=== PATIENT | female | born 1970 | race Caucasian/White ===

== ENCOUNTER → 2016-05-16 | Outpatient (CLI) | payer OTHER ==
[~2016-05-16] MED LIST: ALBU0.08 INH; ALBUAER19 INH; CALC-20 PO; FLUO20CA35 PO; FLUT50SP14 NAE; IBUP-1050 PO; MOME100A INH; MULT-506 PO; SNG10 PO
== END | disposition home or self-care (01) ==
LOC: C.PAPS 10:28
PROVIDERS: ATTEND Obstetrics & Gynecology
DX: Z12.4 Encounter for screening for malignant neoplasm of cervix (principal)

== ENCOUNTER → 2017-01-29 | Outpatient (CLI) | payer OTHER ==
--- NOTE | 2017-01-30 08:29 | MAMMOGRAPHY REPORT ---
BILATERAL DIGITAL SCREENING MAMMOGRAM TOMOSYNTHESIS WITH CAD: 01/29/2017 CLINICAL HISTORY: Routine screening. Patient has no complaints. TECHNIQUE: Breast tomosynthesis in addition to standard 2D mammography was performed. Current study was also evaluated with a Computer Aided Detection (CAD) system. COMPARISON: Comparison is made to exams dated: 12/26/2015 mammogram, 12/20/2015 mammogram, 12/05/2014 m ammogram, 10/04/2013 mammogram, 09/17/2012 mammogram, and 09/30/2012 mammogram - [facility]ter. BREAST COMPOSITION: The tissue of both breasts is heterogeneously dense, which may obscure small mas ses. FINDINGS: No suspicious masses, calcifications, or areas of architectural distortion are noted in ei ther breast. There has been no significant interval change compared to prior exams. IMPRESSION: ACR BI-RADS CATEGORY 1: NEGATIVE There is no mammographic evidence of malignancy. A 1 year screening mammogram is recommended. The pa tient will receive written notification of the results. Approximately 10% of breast cancers are not detected with mammography. A negative mammographic report should not delay biopsy if a clinically suggestive mass is present. Xiao Starr M.D. ah/:01/29/2017 14:59:47 Client Service Representative: Celia MCBRIDE(R)(M), [facility] letter sent: Normal 1/2 BI-RADS Code: ACR BI-RADS Category 1: Negative
== END | disposition home or self-care (01) ==
LOC: C.MAMM 11:18
PROVIDERS: ATTEND Obstetrics & Gynecology
DX: Z12.31 Encounter for screening mammogram for malignant neoplasm of breast (principal)

== ENCOUNTER → 2017-08-03 | Outpatient (CLI) | payer OTHER ==
[2017-08-03 14:45] LABS: HEMOGLOBIN 14.2 g/dL (12.0-16.0); MEAN CELL VOLUME 86.6 fL (80-100); MEAN CORPUSCULAR HEMOGLOBIN 29.3 pg (25-34); MEAN CORPUSCULAR HGB CONC 33.8 g/dl (32-36); MEAN PLATELET VOLUME 8.6 fL (7.4-10.4); PLATELET COUNT 322 K/uL (130-400); RED CELL DISTRIBUTION WIDTH CV 13.1 % (11.5-14.5); RED CELL DISTRIBUTION WIDTH SD 41.6 fL (36.4-46.3); WHITE BLOOD COUNT 7.51 K/uL (4.8-10.8)
== END | disposition home or self-care (01) ==
LOC: C.LAB 13:26
PROVIDERS: ATTEND Obstetrics & Gynecology
DX: N93.9 Abnormal uterine and vaginal bleeding, unspecified (principal)

== ENCOUNTER → 2017-12-21 | Outpatient (CLI) | payer OTHER ==
[2017-12-21 09:55] LABS: ALBUMIN 3.5 gm/dl (3.4-5.0); ALKALINE PHOSPHATASE 114 U/L (45-117); ALT/SGPT 37 U/L (12-78); AST/SGOT 23 U/L (15-37); BLOOD UREA NITROGEN 12 mg/dl (7-18); CALCIUM 8.8 mg/dl (8.5-10.1); CARBON DIOXIDE 30 mmol/L (21-32); CHOLESTEROL 223 mg/dl (0-200); CREATININE 0.95 mg/dl (0.60-1.20); GLUCOSE 100 mg/dl (70-99); LDL CHOLESTEROL CALCULATED 152 mg/dl; POTASSIUM 3.5 mmol/L (3.5-5.1); SODIUM 139 mmol/L (136-145); TOTAL PROTEIN 6.8 gm/dl (6.4-8.2)
== END | disposition home or self-care (01) ==
LOC: C.LAB 07:54
PROVIDERS: ATTEND Internal Medicine
DX: E78.5 Hyperlipidemia, unspecified (principal)

== ENCOUNTER 2019-04-04 06:01 | Observation (INO) ==
--- NOTE | 2019-03-09 15:53 | PAT Medication Instructions ---
Medication Instructions Date of Service March 09, 2019 Home Medications albuterol sulfate 2.5 mg/3 mL (0.083 %) solution for nebulization 2.5 mg INHALATION Q4H PRN albuterol sulfate 90 mcg/actuation aerosol inhaler 2 puffs INHALATION Q4H PRN calcium carbonate 600 mg (1,500 mg)-vitamin D3 200 unit tablet 1 tab PO QAM cholecalciferol (vitamin D3) 5,000 unit capsule 5,000 units PO QAM escitalopram oxalate 20 mg tablet 20 mg PO QPM #30 tab 12/11/18 [History Confirmed 03/04/19] fluticasone 250 mcg-salmeterol 50 mcg/dose blistr powdr for inhalation 1 puffs INHALATION BID hydrochlorothiazide 25 mg tablet 25 mg PO QAM #90 tab 12/11/18 [History Confirmed 03/04/19] montelukast 10 mg tablet 10 mg PO HS #90 tab 12/11/18 [History Confirmed 03/04/19] multivitamin 1 tab PO QAM 12/11/18 [History Confirmed 03/04/19] omeprazole 20 mg capsule,delayed release 20 mg PO QAM fluticasone propionate 50 mcg/actuation nasal spray,suspension 2 sprays INTRANASAL QAM PRN fexofenadine [Paz Allergy] 180 mg PO QAM 03/04/19 [History Confirmed 03/04/19] ibuprofen [Advil] 200 - 400 mg PO Q6H PRN 03/04/19 [History Confirmed 03/04/19] ASK your surgeon for instructions ibuprofen [Advil] 200 - 400 mg PO Q6H PRN 03/04/19 [History Confirmed 03/04/19] DO NOT take the morning of surgery calcium carbonate 600 mg (1,500 mg)-vitamin D3 200 unit tablet 1 tab PO QAM cholecalciferol (vitamin D3) 5,000 unit capsule 5,000 units PO QAM hydrochlorothiazide 25 mg tablet 25 mg PO QAM #90 tab 12/11/18 [History Confirmed 03/04/19] multivitamin 1 tab PO QAM 12/11/18 [History Confirmed 03/04/19] fexofenadine [Paz Allergy] 180 mg PO QAM 03/04/19 [History Confirmed 03/04/19] Take morning of surgery With a small sip of water, OTHERWISE NOTHING TO EAT OR DRINK AFTER MIDNIGHT: albuterol sulfate 2.5 mg/3 mL (0.083 %) solution for nebulization 2.5 mg INHALATION Q4H PRN (if needed) albuterol sulfate 90 mcg/actuation aerosol inhaler 2 puffs INHALATION Q4H PRN (use if needed; please bring with you to hospital day of surgery if possible) fluticasone 250 mcg-salmeterol 50 mcg/dose blistr powdr for inhalation 1 puffs INHALATION BID omeprazole 20 mg capsule,delayed release 20 mg PO QAM fluticasone propionate 50 mcg/actuation nasal spray,suspension 2 sprays INTRANASAL QAM PRN (if needed) Take evening before surgery albuterol sulfate 2.5 mg/3 mL (0.083 %) solution for nebulization 2.5 mg INHALATION Q4H PRN (if needed) albuterol sulfate 90 mcg/actuation aerosol inhaler 2 puffs INHALATION Q4H PRN (if needed) escitalopram oxalate 20 mg tablet 20 mg PO QPM #30 tab 12/11/18 [History Confirmed 03/04/19] fluticasone 250 mcg-salmeterol 50 mcg/dose blistr powdr for inhalation 1 puffs INHALATION BID montelukast 10 mg tablet 10 mg PO HS #90 tab 12/11/18 [History Confirmed 03/04/19] Other Notes If you have any questions please call us at [phone] or [phone] or [phone] or [phone]
--- NOTE | 2019-03-10 11:47 | Anesthesiology Consultation ---
Date of Service March 10, 2019 Assessment & Plan Chart Review Chart Review: Pending: Refer to Additional Notes / Consult section (pending preop testing (labs)) and Patient seen in Pre Admission Testing Teaching & Discussion Pre-Anesthesia Teaching/Discussion Notes: Instructed NPO after midnight before surgery,except medications with 15 cc of water. Medication instructions provided according to the PAT guidelines. History Surgery Operation Date: 04/04/19 09:20 Proposed Procedures p Robotic Total Laparoscopic Hysterectomy - Brooke Gudino MD Height/Weight Height: 5 ft 7 in Weight: 90.4 kg Allergies Allergy/AdvReac Type Severity Reaction Status Date / Time No Known Allergies Allergy Unknown Verified 03/04/19 13:45 Medications Home Medications Medication Instructions Recorded Confirmed Last Taken albuterol sulfate 2.5 mg/3 mL 2.5 mg INHALATION Q4H PRN #1 ml 12/11/18 03/10/19 Unknown (0.083 %) solution for nebulization albuterol sulfate 90 mcg/actuation 2 puffs INHALATION Q4H PRN #1 gm 12/11/18 03/10/19 Unknown aerosol inhaler calcium carbonate 600 mg (1,500 1 tab PO QAM tab 12/11/18 03/10/19 Unknown mg)-vitamin D3 200 unit tablet cholecalciferol (vitamin D3) 5,000 5,000 units PO QAM cap 12/11/18 03/10/19 Unknown unit capsule escitalopram oxalate 20 mg tablet 20 mg PO QPM #30 tab 12/11/18 03/10/19 Unknown fluticasone 250 mcg-salmeterol 50 1 puffs INHALATION BID #3 ea 12/11/18 03/10/19 Unknown mcg/dose blistr powdr for inhalation hydrochlorothiazide 25 mg tablet 25 mg PO QAM #90 tab 12/11/18 03/10/19 Unknown montelukast 10 mg tablet 10 mg PO HS #90 tab 12/11/18 03/10/19 Unknown multivitamin 1 tab PO QAM 12/11/18 03/10/19 Unknown omeprazole 20 mg capsule,delayed 20 mg PO QAM cap 12/11/18 03/10/19 Unknown release fluticasone propionate 50 2 sprays INTRANASAL QAM PRN gm 12/20/18 03/10/19 Unknown mcg/actuation nasal spray,suspension fexofenadine [Paz Allergy] 180 mg PO QAM 03/04/19 03/10/19 Unknown ibuprofen [Advil] 200 - 400 mg PO Q6H PRN 03/04/19 03/10/19 Unknown Past Medical History Medical History (Updated 03/10/19 @ 11:44 by Malka Mixon) Anxiety Asthma stable Depression Gastritis stable on PPI High cholesterol Hypertension Menorrhagia Exercise / Class Metabolic Activity II 4-5 Yardwork/Stairs/Walk up hill Past Family History Family History Father Stroke syndrome Hypertension Sleep apnea Myocardial infarction Coronary heart disease Hx of CABG, Onset Age: 65 Mother Hypothyroidism Aunt Coronary heart disease paternal Uncle Coronary heart disease paternal Past Surgical History Surgical History History of esophagogastroduodenoscopy (EGD) History of open reduction and internal fixation (ORIF) procedure NASAL Hx of colonoscopy Hx of hernia repair X2 Hx of wisdom tooth extraction Past Anesthesia History No Hx of Anesthesia Complications and No Family Hx of Anesthesia Complications History of PONV No Hx of PONV and No Hx of Motion Sickness Social History Smoking Status: Never smoker Do You Dip or Chew Tobacco: No Hx Alcohol Use: Yes alcohol intake frequency: holidays/special occasions only Hx Substance Use: No Review of Systems Patient denies chest pain, shortness of breath, dyspnea on exertion, cough, wheezing, palpitations. Physical Exam Vital Signs VITALS BP 128/81 P 94 TEMP 98.7 SP02 94%RA RESP 16 PHYSICAL Full neck and c-spine range of motion. Full TMJ range of motion. TMD 4 finger breaths Mallampati Score 2 Dentition: intact, upper front bonding Lungs: clear throughout to auscultation Cardiac: regular rate and rhythm, no murmurs noted Spine: normal Extremities: no edema
[2019-03-10 12:42] LABS: Basophils # (auto) 0.03 K/uL (0-0.2); Basophils % (auto) 0.4 %; Eosinophils % (auto) 2.9 %; Hematocrit (blood only) 41.8 % (37-47); Hemoglobin 13.8 g/dL (12.0-16.0); Immature Granulocytes # (auto) 0.02 K/uL (0.00-0.02); Immature Granulocytes % (auto) 0.3 %; Lymphocytes # (auto) 2.47 K/uL (1.2-3.4); Lymphocytes % (auto) 35.5 %; Mean Corpuscular Hemoglobin 29.9 pg (25-34); Mean Corpuscular Volume 90.5 fL (80-100); Mean Platelet Volume 8.7 fL (7.4-10.4); Monocytes # (auto) 0.71 K/uL (0.11-0.59); Monocytes % (auto) 10.2 %; Neutrophils # (auto) 3.52 K/uL (1.4-6.5); Neutrophils % (auto) 50.7 %; Platelet Count 302 K/uL (130-400); RDW Coefficient of Variation 13.4 % (11.5-14.5); RDW Standard Deviation 44.5 fL (36.4-46.3); Red Blood Count 4.62 M/uL (4.2-5.4); White Blood Count 6.95 K/uL (4.8-10.8)
[2019-03-10 13:05] LABS: BUN Creatinine Ratio 12.4 (10-20); Calcium 9.5 mg/dl (8.5-10.1); Creatinine Clr Calc Pharmacy 78.8 ml/min; Est GFR (African American) 75.5; Est GFR (Non-African American) 65.1; Potassium 3.9 mmol/L (3.5-5.1)
[~2019-04-04 06:01] MED LIST changes: -ALBU0.08 INH; -ALBUAER19 INH; -CALC-20 PO; +CEFAZOLIN 2000MG 2,000 MG/15 ML SYR IV SCH; -FLUO20CA35 PO; -FLUT50SP14 NAE; -IBUP-1050 PO; +LACTATED RINGER'S 1,000 ML IV SCH; +LR 15ML/HR IV SCH; -MOME100A INH; -MULT-506 PO; -SNG10 PO
[2019-04-04] MEDS ORDERED: ONDANSETRON INJ 2 MG/ML 2 ML VIAL ONE ×2 (06:56→09:00)
[2019-04-04] MEDS ORDERED: GLYCOPYRROLATE 0.2 MG/ML VIAL ONE (06:56)
[2019-04-04] MEDS ORDERED: fentaNYL citrate 100 MCG/2 ML VIAL ONE ×3 (06:56→09:19)
[2019-04-04] MEDS ORDERED: PROPOFOL IV EMULSION 10 MG/ML 20 ML VIAL IV ONE (06:56)
[2019-04-04] MEDS ORDERED: LIDOCAINE HCL 2% 2 ML VIAL/AMP(20MG/ML) INFIL ONE (06:56)
[2019-04-04] MEDS ORDERED: DEXAMETHASONE SOD INJ 4 MG/ML VIAL ONE (06:56)
[2019-04-04] MEDS ORDERED: MIDAZOLAM HCL 1 MG/ML 2ML VIAL ONE (06:56)
[2019-04-04] MEDS ORDERED: NEOSTIGMINE METHYLSULFATE 5 MG/5 ML SYR ONE (06:56)
[2019-04-04] MEDS ORDERED: ONDANSETRON INJ 2 MG/ML 2 ML VIAL IV PRN ×2 (06:57→07:05)
[2019-04-04] MEDS ORDERED: LABETALOL HCL IV 5 MG/ML 20ML IV PRN (06:57)
[2019-04-04] MEDS ORDERED: ATROPINE SULFATE 0.1 MG/ML 10ML SYR IV PRN (06:57)
[2019-04-04] MEDS ORDERED: KETOROLAC 30 MG/ML VIAL IV PRN ×2 (06:57→07:05)
[2019-04-04] MEDS ORDERED: HYDROmorphone INJ 1 MG/ML SYRINGE IV PRN (06:57)
[2019-04-04] MEDS ORDERED: METHYLENE BLUE 0.5% 10 ML VIAL ONE (06:58)
--- NOTE | 2019-04-04 07:03 | History & Physical Bridge Note ---
Date of Service April 04, 2019 History & Physical Bridge Note I have examined the patient, reviewed the History & Physical and in the interval since the performance of the History & Physical I have noted the following changes of clinical significance: no changes noted
[2019-04-04] MEDS ORDERED: ACETAMINOPHEN 325 MG TAB PO PRN (07:05)
[2019-04-04] MEDS ORDERED: IBUPROFEN 600 MG TAB PO PRN (07:05)
[2019-04-04] MEDS ORDERED: PROMETHAZINE HCL 12.5 MG in SODIUM CHLORIDE 0.9% 50 ML IV PRN (07:05)
[2019-04-04] MEDS ORDERED: PROMETHAZINE HCL 25 MG in SODIUM CHLORIDE 0.9% 50 ML IV PRN (07:05)
[2019-04-04] MEDS ORDERED: MEPERIDINE HCL 25 MG/ML CARP IV PRN (07:05)
[2019-04-04] MEDS ORDERED: OXYCODONE/ACETAMINOPHEN 5mg/325mg TAB PO PRN ×2 (07:05)
[2019-04-04] MEDS ORDERED: bisacodyL 10 MG SUPP PR PRN (07:05)
[2019-04-04] MEDS ORDERED: MEPERIDINE HCL 50 MG/ML CARP IV PRN (07:05)
[2019-04-04] MEDS ORDERED: LACTATED RINGER'S 1,000 ML IV SCH (07:15)
--- NOTE | 2019-04-04 09:20 | Operative Report ---
PG Post Operative Report Pre & Post Diagnosis Operation Date: 04/04/19 07:30 Pre-Op Diagnosis: Menorrhagia with Irregular Cycle Post-Op Diagnosis: Menorrhagia with Irregular Cycle I identified the patient and participated in the time-out.: Yes Procedure Operation Date: 04/04/19 07:30 Actual Procedures p Robotic Total Laparoscopic Hysterectomy, Bilateral Salpingectomy, Cystoscopy - Brooke Gudino MD Surgeon Brooke Gudino MD Suspect Artist None Estimated Blood Loss 25 Findings Consistent with Post-Op Diagnosis Specimens Uterus, Cervix, bilateral fallopian tubes Anesthesia Type General Complications none Disposition Accompanied Patient To Recovery: Yes Disposition: Recovery Room Description of Procedure The patient was brought to the operating room and placed on the table in dorsal lithotomy position with yellofin stirrups, prepped and draped in standard sterile fashion, and a hard time out was taken prior to proceeding. The bladder was emptied via placement of benitez catheter. A [employer] uterine manipulator was placed in the usual manner. Attention was then turned to the abdomen where optical entry was made at the umbilicus without complication. The abdomen was insufflated and the patient was placed in steep Trendelenburg. Under direct visualization, right and left lower quadrant ports were placed without complication. Survey of the abdomen revealed normal tubes, ovaries and uterus with some adhesive disease in the posterior pelvis. The robot was then docked and surgery proceeded with the surgeon at the console. The ureter was identified on each side and traced along its course into the pelvis. Each fallopian tube in turn was elevated, dissected off the mesosalpinx and left attached to the uterine cornu. Each utero-ovarian ligament was ligated and then divided. Each round ligament was ligated and then divided. The anterior leaflets of the broad ligament were dissected to create a bladder flap which was gently mobilized downward below the colpotomy cup ridge. Each uterine artery was skeletonized, ligated, and then divided. Circumferential colpotomy was then completed following the colpotomy cup guide. The cervix, uterus and bilateral tubes were then retrieved en bloc via the vagina. The vaginal cuff was then closed using V-Mariia suture in the typical running non-locked fashion. The needle was retrieved through a trocar, and suction/irrigation was then used to remove any debris and ensure good hemostasis at all working sites. A small ooze was seen from the R angle, so another V-mariia suture was used to throw a figure of eight over this angle, and tied with an instrument-tie technique to fully secure the area. Repeat suction-irrigation showed complete hemostasis had been achieved, and observation showed no sign of bleeding or filling into the r etroperitoneal space. After administration of IV Methylene Blue dye, cystoscopy was then utilized to examine the bladder dome which was free of suture or injury. The ureteral orifices were observed until a good strong jet of blue stained urine was seen from each. The bladder was then drained. The robot was then undocked, and abdominal trocar sites were closed using a UR6 at the umbilical fascia and 4-0 monocryl at each of the skin incisions. A dermabond dressing was applied to each site. A final vaginal exam ensured no materials were present in the vagina and the cuff was intact. The patient was then transferred in stable condition to the recovery room. I attest to the content of the Intraoperative Record and any orders documented therein. Any exceptions are noted below.
--- NOTE | 2019-04-04 10:10 | Anesthesiology Progress Note ---
Date of Service April 04, 2019 Anesthesia Post Procedure Vital Signs Vital Signs: Temp Pulse Pulse Resp BP Pulse Ox 04/04/19 10:00 103 H 17 121/99 96 04/04/19 09:50 90 15 126/81 98 04/04/19 09:40 90 13 122/81 96 04/04/19 09:34 36.2 C L 93 H 12 123/80 87 L 04/04/19 06:29 37 C 94 H 18 125/87 95 Transfer of Care Handoff Completed per policy Notes Mental Status: alert / awake / arousable Patient Amnestic to Procedure: Yes Nausea / Vomiting: adequately controlled Pain: adequately controlled Airway Patency, RR, SpO2: stable & adequate BP & HR: stable & adequate Hydration State: stable & adequate Anesthetic Complications: no major complications apparent
[2019-04-04] MEDS ORDERED: DOCUSATE SODIUM 100 MG CAP PO SCH (11:00)
[2019-04-04 14:10] LABS: Hemoglobin 13.1 g/dL (12.0-16.0)
--- NOTE | 2019-04-05 11:11 | Discharge Summary ---
Date of Service April 05, 2019 Discharge Data Procedures Performed Operation Date: 04/04/19 07:30 Actual Procedures p Robotic Total Laparoscopic Hysterectomy, Bilateral Salpingectomy, - Brooke Gudino MD s Cystoscopy - Brooke Gudino MD Hospital Course (1) H/O: hysterectomy: Patient underwent planned robotic hysterectomy without complications. She was discharged to home POD#0 after meeting the typical postop milestones, and will have office f/u in 2 and 6 weeks.
== END 2019-04-04 16:20 | disposition home or self-care (01) ==
LOC: ASU 06:01 → 4N 06:01

== ENCOUNTER 2021-12-05 07:20 | Inpatient (IN) ==
[2021-12-05] MEDS ORDERED: ASPIRIN 81 MG CHEW PO STA (07:45)
[2021-12-05] MEDS ORDERED: NITROGLYCERIN SL 0.4 MG/TAB TAB SL STA (07:45)
[2021-12-05 07:53] LABS: Basophils # (auto) 0.05 K/uL (0-0.2); Basophils % (auto) 0.8 %; Eosinophils # (auto) 0.16 K/uL (0-0.50); Eosinophils % (auto) 2.4 %; Hematocrit (blood only) 41.2 % (34.1-44.9); Hemoglobin 13.4 g/dl (12.0-16.0); Immature Granulocytes # (auto) 0.02 K/uL (0.00-0.02); Immature Granulocytes % (auto) 0.3 %; Lymphocytes # (auto) 2.28 K/uL (1.2-3.4); Lymphocytes % (auto) 34.4 %; Mean Corpuscular Hemoglobin 29.5 pg (25.0-34.0); Mean Corpuscular Hgb Conc 32.5 g/dL (32.0-36.0); Mean Corpuscular Volume 90.7 fL (80.0-100.0); Mean Platelet Volume 8.2 fL (9.4-12.3); Monocytes # (auto) 0.72 K/uL (0.24-0.82); Monocytes % (auto) 10.9 %; Neutrophils # (auto) 3.39 K/uL (1.4-6.5); Neutrophils % (auto) 51.2 %; Platelet Count 279 K/uL (130-400); RDW Coefficient of Variation 13.6 % (11.5-14.5); RDW Standard Deviation 45.4 fL (36.4-46.3); Red Blood Count 4.54 M/uL (3.93-5.22); White Blood Count 6.62 K/ul (4.8-10.8)
[2021-12-05 08:12] LABS: Albumin Globulin Ratio 1.7 (0.9-2); Albumin Level 4.3 gm/dl (3.4-5.0); BUN Creatinine Ratio 14.9 (10-20); Bilirubin,Total 0.6 mg/dl (0.2-1.0); Calcium 9.7 mg/dl (8.5-10.1); Creatinine Clr Calc Pharmacy 84.8 ml/min; Est GFR (African American) 82.6 ml/min; Est GFR (Non-African American) 71.2 ml/min; Globulin 2.6 gm/dl (2.5-4.0); Potassium 3.1 mmol/L (3.5-5.1); Total Protein 6.9 gm/dl (6.0-8.3)
--- NOTE | 2021-12-05 08:12 | XRay Report ---
XR chest 1V portable HISTORY: 51 years-old Female Chest Pain acute atypical chest pain COMPARISON: Chest radiograph 10/04/2013 TECHNIQUE: Portable AP view of the chest FINDINGS: The cardiomediastinal and hilar silhouettes are within normal limits. No pneumothorax, pleural effusi on, airspace consolidation or overt pulmonary edema. Bones of the chest appear grossly intact. IMPRESSION: No acute process. ACT 112: Negative or not required by law. The above report was generated using voice recognition software. It may contain grammatical, syntax o r spelling errors. Electronically signed by: José Antonio Zelaya M.D. 12/05/2021 8:11 AM
[2021-12-05 08:20] LABS: Troponin I High Sensitivity 394.8 pg/ml (0-14)
[2021-12-05] MEDS ORDERED: NITROGLYCERIN 2% OINTMENT 30GM TUBE EXT STA (09:04)
[2021-12-05] MEDS ORDERED: Heparin IV Adult Wt-Based Low-Dose WITH Bolus Protocol IV STA (09:04)
[2021-12-05] MEDS ORDERED: Heparin IV Adult Wt-Based Low-Dose WITH Bolus Protocol IV SCH (09:15)
[2021-12-05 09:20] LABS: Partial Thromboplastin Ratio 1.1; Partial Thromboplastin Time 29.8 Seconds (21.0-31.0); Prothrombin Time 10.2 Seconds (9.0-12.0)
[2021-12-05] MEDS ORDERED: HEPARIN SOD (PORCINE) 1000 UNIT/ML IV ONE (09:20)
[2021-12-05] MEDS ORDERED: HEPARIN SODIUM/DEXTROSE 25,000 UNITS/500 ML BAG IV SCH (09:30)
--- NOTE | 2021-12-05 09:34 | History & Physical Report ---
Date of Service December 05, 2021 Assessment & Plan (1) Non-ST elevation (NSTEMI) myocardial infarction: Plan: Presented with chest pain that woke her from sleep, relieved with nitroglycerin, nonspecific ECG changes in anterior leads. With elevated troponin in the 300s and francisco javier to [address] angiogram chest negative for PE With risk factors of hypertension, hyperlipidemia, strong family history Taken urgently for cardiac catheterization after being started on heparin drip- showed no significant CAD except possibly on review some severe disease in a tiny OM branch that is not amenable to treatment Greatly appreciate cardiology consultation Echocardiogram without wall motion abnormalities, with preserved EF, moderate LVH -Start DAPT with aspirin and Plavix -Continue heparin drip -Nitroglycerin as needed -Start metoprolol 25 Mg p.o. twice daily -Increase rosuvastatin to high intensity dose at 20 mg daily -Continue losartan 25 mg daily -Check lipid panel and hemoglobin A1c in the morning -Follow CBC, BMP, magnesium in the morning (2) Hypokalemia: Plan: Low at 3.1 on arrival Replaced with potassium chloride 40 mill equivalents p.o. x1 Follow BMP and magnesium in the morning (3) Hypertension: Plan: Blood pressures are controlled Hold home HCTZ Continue home losartan and starting metoprolol 25 Mg p.o. twice daily (4) Anxiety: Plan: Stable Continue Lexapro (5) Hypercholesteremia: Plan: Increasing high intensity statin as above Checking lipid panel (6) Asthma: Plan: No acute issues Continue home bronchodilators, Singulair, maintenance ICS/LABA Continue home fexofenadine and Flonase (7) Sleep apnea: Plan: Continue CPAP at bedtime at 9 cm Plan DVT prophylaxis-DAPT, heparin drip Disposition-admit to PCU Full code as discussed with patient. She would name her mom as her POA History of Present Illness Chief Complaint: Chest pain Primary Care Provider: Matt Bradley MD This patient is a 51-year-old female with history of asthma, allergies, HTN, hyperlipidemia, anxiety disorder, who presents to the ER with acute onset of substernal chest pain that came on at rest that woke her from sleep early this morning at 3 AM. She was able to fall back asleep and it woke her up again at 6 AM. She had associated left arm heaviness and tingling. She tried taking Tums without any relief. She came to the ER and received nitroglycerin which did improve her pain. When I saw her in the ER, she was having a 2/10 in severity pain. She did have some diaphoresis prior to arrival but thought that that was secondary to menopausal hot flashes. She has had some occasional chest pains off and on for last year and was seen at an urgent care at 1 point and had a reportedly normal EKG. She is not very active due to arthritis in her left knee. No recent headaches, cold symptoms, shortness of breath, cough. Has had a sore throat recently. I discussed her care with mortar mixer operator at the bedside and plan will be for urgent cardiac catheterization as her troponin was elevated on arrival in the 300s. ECG showed some T wave flattening in the anterior leads Shortly after admission and cardiac catheterization was reportedly without need for acute intervention, CT angiogram of the chest was ordered which was negative for PE. There was initial thought given to her having myopericarditis and colchicine and aspirin were initiated, however after her third troponin francisco javier even further to 5000, and on further review of the cardiac catheterization images as per the mortar mixer operator, decision was made to continue to treat for NSTEMI. Heparin drip had already been initiated in the morning and was restarted after her radial wr ist band was removed Allergies Allergy/AdvReac Type Severity Reaction Status Date / Time No Known Drug Allergies Allergy Verified 09/19/21 16:21 Home Medications Medication Instructions Recorded Confirmed Type calcium carbonate 600 mg-vitamin 1 tab PO QAM 12/11/18 09/19/21 History D3 5 mcg (200 unit) tablet cholecalciferol (vitamin D3) 125 5,000 units PO QAM 12/11/18 09/19/21 History mcg (5,000 unit) capsule multivitamin (Daily Multi-Vitamin 1 tab PO QAM 12/11/18 09/19/21 History tablet) omeprazole 20 mg capsule,delayed 20 mg PO QAM 12/11/18 09/19/21 History release fluticasone propionate 50 2 sprays intranasal QAM PRN 12/20/18 09/19/21 History mcg/actuation nasal ALLERGIES spray,suspension fexofenadine 180 mg tablet 180 mg PO QAM 03/04/19 09/19/21 History (Paz Allergy) CPAP Machine #1 ea 07/03/20 09/19/21 Rx albuterol sulfate 2.5 mg/3 mL 2.5 mg (3 mL) inhalation Q4H PRN 08/17/20 09/19/21 Rx (0.083 %) solution for nebulization wheezing #90 mL nebulizer accessories #1 ea 08/17/20 09/19/21 Rx albuterol sulfate 90 mcg/actuation 2 puff inhalation Q4H PRN 07/24/21 09/19/21 Rx aerosol inhaler Shortness Of Breath #18 grams estradiol 0.01% (0.1 mg/gram) 0.5 g vaginal 2XWK #42.5 grams 10/21/21 Rx vaginal cream escitalopram oxalate 20 mg tablet 20 mg PO DAILY #90 tabs 10/22/21 Rx (Lexapro) fluticasone 250 mcg-salmeterol 50 See Rx Instructions .Route 10/22/21 Rx mcg/dose blistr powdr for .COMPLEX #180 grams inhalation (Wixela Inhub) hydrochlorothiazide 25 mg tablet 25 mg PO DAILY #90 tabs 10/22/21 Rx losartan 25 mg tablet 25 mg PO DAILY #90 tabs 10/22/21 Rx montelukast 10 mg tablet 10 mg PO HS #90 tabs 10/22/21 Rx rosuvastatin 5 mg tablet 5 mg PO DAILY #90 tabs 10/22/21 Rx Past Med/Surg History Medical History Anxiety Asthma stable Depression Gastritis stable on PPI High cholesterol Hypertension Internal hemorrhoids Irritable bowel syndrome Menorrhagia Vitamin D deficiency Surgical History H/O: hysterectomy [facility] salpingectomy, retains ovaries, 2019 History of esophagogastroduodenoscopy (EGD) History of open reduction and internal fixation (ORIF) procedure NASAL Hx of colonoscopy Hx of hernia repair X2 Hx of wisdom tooth extraction Family History Father Stroke syndrome Hypertension Sleep apnea Myocardial infarction Coronary heart disease Hx of CABG, Onset Age: 65 Mother Hypothyroidism Aunt Coronary heart disease paternal Uncle Coronary heart disease paternal Denies family history of Ovarian cancer Prostate cancer Crohn's disease Breast cancer Colorectal cancer Ulcerative colitis Social History Smoking Status: Never smoker Second Hand Exposure: No; Hx Alcohol Use: Yes Hx Substance Use: No Preferred Language: Tajik Communication Ability: Effective Visual Impairment: No Limitations Beliefs That Will Affect Care: None marital status: Current Living Situation: Alone current occupational status: employed Feels Safe at Home: Yes Childhood Exposure to Second-Hand Smoke: No Dental Care, Regularly: Yes Physical Activity Frequency: 3-4 Times per Week Seatbelt Use: always Assistive Devices: Glasses Review of Systems Review of Systems: All systems reviewed & are unremarkable except as noted in HPI & below Physical Exam Constitutional: WD/WN, vitals as above Eyes: + anicteric sclerae ENMT: external ear and nose normal, oropharynx normal (Except mild erythema of posterior oropharynx) Neck: trachea midline, no thyromegaly Respiratory: normal respiratory effort, lungs clear to auscultation Cardiovascular: RRR, no murmur, no edema Chest (Breasts): Chest: normal inspection of chest Gastrointestinal (Abdomen): normal bowel sounds, soft, nontender, no hepatosplenomegaly Musculoskeletal: Extremities: extremities normal to inspection; no cyanosis and no clubbing Skin: no rashes, warm and dry Neurologic: moves all extremities and awake; no focal motor deficits Psychiatric: A+Ox3, euthymic affect Lymphatic: no lymphedema Results & Data Results & Data ([facility]) Vital Signs (Past 12 Hours) Vital Signs Pulse Pulse Resp BP BP Pulse Ox O2 Del Method 12/05/21 09:21 90 18 114/80 98 Room Air 12/05/21 08:35 82 18 120/77 98 Room Air 12/05/21 08:00 138/78 12/05/21 07:51 82 16 141/105 H 96 Room Air 12/05/21 07:24 81 16 138/88 98 Laboratory Results 12/05/21 12/05/21 12/05/21 Range/Units 20:30 15:51 15:50 WBC (4.8-10.8) K/ul RBC (3.93-5.22) M/uL Hgb (12.0-16.0) g/dl Hct (34.1-44.9) % MCV (80.0-100.0) fL MCH (25.0-34.0) pg MCHC (32.0-36.0) g/dL RDW Std Deviation (36.4-46.3) fL RDW Coeff of Napoleon (11.5-14.5) % Plt Count (130-400) K/uL MPV (9.4-12.3) fL Immature Gran % (Auto) % Neut % (Auto) % Lymph % (Auto) % [place] % (Auto) % Eos % (Auto) % Baso % (Auto) % Neut # (Auto) (1.4-6.5) K/uL Lymph # (Auto) (1.2-3.4) K/uL [place] # (Auto) (0.24-0.82) K/uL Eos # (Auto) (0-0.50) K/uL Baso # (Auto) (0-0.2) K/uL Immature Gran # (Auto) (0.00-0.02) K/uL ESR 12 (0-20) mm/hr PT (9.0-12.0) Seconds INR (0.9-1.1) APTT (21.0-31.0) Seconds PTT Ratio Sodium (136-145) mmol/L Potassium (3.5-5.1) mmol/L Chloride (98-107) mmol/L Carbon Dioxide (21-32) mmol/L Anion Gap (3-11) BUN (6-23) mg/dl Creatinine (0.6-1.2) mg/dl Est Cr Clr Drug Dosing ml/min Est GFR ( Amer) ml/min Est GFR (Non-Af Amer) ml/min BUN/Creatinine Ratio (10-20) Glucose (70-99(Fasting)) mg/dl Calcium (8.5-10.1) mg/dl Total Bilirubin (0.2-1.0) mg/dl AST (13-39) U/L ALT (7-52) U/L Alkaline Phosphatase (34-104) U/L Troponin I High Sens 5137.7 H* D (0-14) pg/ml C-Reactive Protein < 0.50 (0-0.5) mg/dl Total Protein (6.0-8.3) gm/dl Albumin (3.4-5.0) gm/dl Globulin (2.5-4.0) gm/dl Albumin/Globulin Ratio (0.9-2) Lipase (11-82) U/L Adenovirus (PCR) Not Detected (NotDetected) B. pertussis DNA (PCR) Not Detected (NotDetected) B.parapertussis DNA PCR Not Detected (NotDetected) C. pneumoniae DNA (PCR) Not Detected (NotDetected) Coronavirus OC43 (PCR) Not Detected (NotDetected) Coronavirus HKU1 (PCR) Not Detected (NotDetected) Coronavirus 229E (PCR) Not Detected (NotDetected) SARS-CoV-2 (PCR) Not Detected (NotDetected) Coronavirus NL63 (PCR) Not Detected (NotDetected) Human Metapneumovir PCR Not Detected (NotDetected) Influenza Type A (PCR) Not Detected (NotDetected) Influenza Type B (PCR) Not Detected (NotDetected) M. pneumoniae (PCR) Not Detected (NotDetected) Parainfluenza 1 (PCR) Not Detected (NotDetected) Parainfluenza 2 (PCR) Not Detected (NotDetected) Parainfluenza 3 (PCR) Not Detected (NotDetected) Parainfluenza 4 (PCR) Not Detected (NotDetected) RSV (PCR) Not Detected (NotDetected) Entero/Rhino (PCR) Not Detected (NotDetected) SARS-CoV-2, RNA, NAAT (NEGATIVE) 12/05/21 12/05/21 12/05/21 Range/Units 15:50 09:44 08:01 WBC (4.8-10.8) K/ul RBC (3.93-5.22) M/uL Hgb (12.0-16.0) g/dl Hct (34.1-44.9) % MCV (80.0-100.0) fL MCH (25.0-34.0) pg MCHC (32.0-36.0) g/dL RDW Std Deviation (36.4-46.3) fL RDW Coeff of Napoleon (11.5-14.5) % Plt Count (130-400) K/uL MPV (9.4-12.3) fL Immature Gran % (Auto) % Neut % (Auto) % Lymph % (Auto) % [place] % (Auto) % Eos % (Auto) % Baso % (Auto) % Neut # (Auto) (1.4-6.5) K/uL Lymph # (Auto) (1.2-3.4) K/uL [place] # (Auto) (0.24-0.82) K/uL Eos # (Auto) (0-0.50) K/uL Baso # (Auto) (0-0.2) K/uL Immature Gran # (Auto) (0.00-0.02) K/uL ESR (0-20) mm/hr PT (9.0-12.0) Seconds INR (0.9-1.1) APTT 30.2 (21.0-31.0) Seconds PTT Ratio 1.1 Sodium (136-145) mmol/L Potassium (3.5-5.1) mmol/L Chloride (98-107) mmol/L Carbon Dioxide (21-32) mmol/L Anion Gap (3-11) BUN (6-23) mg/dl Creatinine (0.6-1.2) mg/dl Est Cr Clr Drug Dosing ml/min Est GFR ( Amer) ml/min Est GFR (Non-Af Amer) ml/min BUN/Creatinine Ratio (10-20) Glucose (70-99(Fasting)) mg/dl Calcium (8.5-10.1) mg/dl Total Bilirubin (0.2-1.0) mg/dl AST (13-39) U/L ALT (7-52) U/L Alkaline Phosphatase (34-104) U/L Troponin I High Sens 1878.2 H* D (0-14) pg/ml C-Reactive Protein (0-0.5) mg/dl Total Protein (6.0-8.3) gm/dl Albumin (3.4-5.0) gm/dl Globulin (2.5-4.0) gm/dl Albumin/Globulin Ratio (0.9-2) Lipase (11-82) U/L Adenovirus (PCR) (NotDetected) B. pertussis DNA (PCR) (NotDetected) B.parapertussis DNA PCR (NotDetected) C. pneumoniae DNA (PCR) (NotDetected) Coronavirus OC43 (PCR) (NotDetected) Coronavirus HKU1 (PCR) (NotDetected) Coronavirus 229E (PCR) (NotDetected) SARS-CoV-2 (PCR) (NotDetected) Coronavirus NL63 (PCR) (NotDetected) Human Metapneumovir PCR (NotDetected) Influenza Type A (PCR) (NotDetected) Influenza Type B (PCR) (NotDetected) M. pneumoniae (PCR) (NotDetected) Parainfluenza 1 (PCR) (NotDetected) Parainfluenza 2 (PCR) (NotDetected) Parainfluenza 3 (PCR) (NotDetected) Parainfluenza 4 (PCR) (NotDetected) RSV (PCR) (NotDetected) Entero/Rhino (PCR) (NotDetected) SARS-CoV-2, RNA, NAAT NEGATIVE (NEGATIVE) 12/05/21 12/05/21 12/05/21 Range/Units 07:39 07:39 07:39 WBC 6.62 (4.8-10.8) K/ul RBC 4.54 (3.93-5.22) M/uL Hgb 13.4 (12.0-16.0) g/dl Hct 41.2 (34.1-44.9) % MCV 90.7 (80.0-100.0) fL MCH 29.5 (25.0-34.0) pg MCHC 32.5 (32.0-36.0) g/dL RDW Std Deviation 45.4 (36.4-46.3) fL RDW Coeff of Napoleon 13.6 (11.5-14.5) % Plt Count 279 (130-400) K/uL MPV 8.2 L (9.4-12.3) fL Immature Gran % (Auto) 0.3 % Neut % (Auto) 51.2 % Lymph % (Auto) 34.4 % [place] % (Auto) 10.9 % Eos % (Auto) 2.4 % Baso % (Auto) 0.8 % Neut # (Auto) 3.39 (1.4-6.5) K/uL Lymph # (Auto) 2.28 (1.2-3.4) K/uL [place] # (Auto) 0.72 (0.24-0.82) K/uL Eos # (Auto) 0.16 (0-0.50) K/uL Baso # (Auto) 0.05 (0-0.2) K/uL Immature Gran # (Auto) 0.02 (0.00-0.02) K/uL ESR (0-20) mm/hr PT 10.2 (9.0-12.0) Seconds INR 1.0 (0.9-1.1) APTT 29.8 (21.0-31.0) Seconds PTT Ratio 1.1 Sodium 141 (136-145) mmol/L Potassium 3.1 L (3.5-5.1) mmol/L Chloride 105 (98-107) mmol/L Carbon Dioxide 31 (21-32) mmol/L Anion Gap 5 (3-11) BUN 14 (6-23) mg/dl Creatinine 0.94 (0.6-1.2) mg/dl Est Cr Clr Drug Dosing 84.8 ml/min Est GFR ( Amer) 82.6 ml/min Est GFR (Non-Af Amer) 71.2 ml/min BUN/Creatinine Ratio 14.9 (10-20) Glucose 91 (70-99(Fasting)) mg/dl Calcium 9.7 (8.5-10.1) mg/dl Total Bilirubin 0.6 (0.2-1.0) mg/dl AST 20 (13-39) U/L ALT 21 (7-52) U/L Alkaline Phosphatase 92 (34-104) U/L Troponin I High Sens 394.8 H* (0-14) pg/ml C-Reactive Protein (0-0.5) mg/dl Total Protein 6.9 (6.0-8.3) gm/dl Albumin 4.3 (3.4-5.0) gm/dl Globulin 2.6 (2.5-4.0) gm/dl Albumin/Globulin Ratio 1.7 (0.9-2) Lipase 53 (11-82) U/L Adenovirus (PCR) (NotDetected) B. pertussis DNA (PCR) (NotDetected) B.parapertussis DNA PCR (NotDetected) C. pneumoniae DNA (PCR) (NotDetected) Coronavirus OC43 (PCR) (NotDetected) Coronavirus HKU1 (PCR) (NotDetected) Coronavirus 229E (PCR) (NotDetected) SARS-CoV-2 (PCR) (NotDetected) Coronavirus NL63 (PCR) (NotDetected) Human Metapneumovir PCR (NotDetected) Influenza Type A (PCR) (NotDetected) Influenza Type B (PCR) (NotDetected) M. pneumoniae (PCR) (NotDetected) Parainfluenza 1 (PCR) (NotDetected) Parainfluenza 2 (PCR) (NotDetected) Parainfluenza 3 (PCR) (NotDetected) Parainfluenza 4 (PCR) (NotDetected) RSV (PCR) (NotDetected) Entero/Rhino (PCR) (NotDetected) SARS-CoV-2, RNA, NAAT (NEGATIVE) ECG Additional Comments: As per HPI Code Status & VTE Plan Code Status Full code VTE Prophylaxis Plan VTE Prophylaxis will be ordered: Yes PG Care Time/CCT Total # of Minutes Spent Total Time Spent with Patient: Total time spent is greater than 50% in coordination of care (as documented) at patient's floor/unit and/or counseling patient: Coding Level of Care Code 01503 Initial Inpt Care Lvl 3 Diagnoses Non-ST elevation (NSTEMI) myocardial infarction I21.4 Hypokalemia E87.6 Hypertension I10 Anxiety F41.9 Hypercholesteremia E78.00 Asthma J45.909 Sleep apnea G47.30
[2021-12-05] MEDS ORDERED: HEPARIN SOD (PORCINE) 1000 UNIT/ML IV STA (09:45)
--- NOTE | 2021-12-05 10:31 | Pre Anesthesia Assessment ---
Date of Service December 05, 2021 Pre Sedation Assessment Vital Signs Pulse Pulse Resp BP BP Pulse Ox O2 Del Method 12/05/21 10:04 82 18 142/75 H 98 Room Air 12/05/21 09:21 90 18 114/80 98 Room Air 12/05/21 08:35 82 18 120/77 98 Room Air 12/05/21 08:00 138/78 12/05/21 07:51 82 16 141/105 H 96 Room Air 12/05/21 07:24 81 16 138/88 98 Cardiovascular RRR, no murmur, no edema Respiratory normal respiratory effort, lungs clear to auscultation Pre-Sedation Airway Assessment Smoking Status: Never smoker Mallampati Class: III ASA: ASA3 NPO Status Date of Last Intake of Fluids: 12/04/21 Time of Last Intake of Fluids: 20:00 Date of Last Intake of Solid Food: 12/04/21 Time of Last Intake of Solid Foods: 20:00 Procedure Planning Contraindications for Sedation: none Current Medications Reviewed: Yes Notes The planned sedation has been discussed with the patient. Informed Consent was obtained. I have identified the patient, determined the appropriateness of sedation and have assessed the patient immediately prior to the procedure. All medicine(s) and interventions are by my order.
--- NOTE | 2021-12-05 10:33 | Emergency Department Note ---
Impression & Plan Non-ST elevation CA (NSTEMI) ED Provider Note CHIEF COMPLAINT: Chest pain HISTORY OF PRESENT ILLNESS: This 51-year-old female patient presents to the emergency department complaints of substernal chest pain that woke her from sleep at 3:00 this morning. The patient states it was initially quite severe but has been subsiding at this point. She is concerned because she has a strong family history of coronary artery disease particularly on her father side. She states both aunts and uncles have had coronary intervention at a young age along with her father, who had a bypass at the age of 66. The patient denies any history but does take medications for less drawl and blood pressure. REVIEW OF SYSTEMS: A review of systems was performed with positives and pertinent negatives listed in the history of present illness. 10 systems were reviewed and are otherwise negative. ALLERGIES: see below MEDICATIONS: see below PMH: see below SOCIAL HISTORY: see below DDx: Cardiac ischemia, aortic dissection, pulmonary embolism, pneumothorax, pneumonia, pericarditis, myocarditis, esophageal rupture, GERD, cholecystitis, pancreatitis, musculoskeletal, as well as other pathologies. PHYSICAL EXAM: Vital signs reviewed. General: Well-appearing 51 yo female, in no significant distress. HEENT: No scleral icterus, PERRLA, neck supple. Atraumatic. Cardiovascular: Regular rate and rhythm, no extra sounds. Pulmonary: Clear to auscultation bilaterally, normal work of breathing. Abdomen: Soft, nontender, nondistended, positive bowel sounds. Musculoskeletal: Atraumatic, no peripheral edema. Neurologic: Patient awake alert and oriented x 3, speech is clear Skin: Warm, dry, no rash EMERGENCY DEPARTMENT COURSE/MDM: Evaluated and appeared to be in no significant distress. IV access was obtained and laboratory work was drawn. Patient was placed on fish housekeeper and noted to be in normal sinus rhythm. EKG reveals T wave inversions anteriorly however there is no previous for comparison. Patient was given aspirin and nitroglycerin. Laboratory work reveals an elevated tro ponin. Cardiology was consulted and made aware of the patient's presentation. Her pain was "nearly 0" after the above interventions. Second troponin was much higher. The patient was started on a heparin drip. Case was discussed with Dr. Chaudhry of the hospitalist service. They will evaluate the patient for admission and further management. MONITORING: An order for cardiac monitoring was placed and the patient is noted to be in a NSR at 82 beats per minute. RADIOLOGY: See below EKG: Normal sinus rhythm 76 bpm. Anterior T wave inversions concerning for infection. There is no previous for comparison. Normal QT interval, no PVC, no PAC. DISPOSITION: Admission I have personally spent 40 minutes of critical care time in the direct management of this patient. This was a life/limb threatening event. This 40 minutes is in excess of all separately billable procedures. Past Med/Surg History Medical History Anxiety Asthma stable CAD (coronary artery disease), crow coronary artery Depression Gastritis stable on PPI High cholesterol Hypertension Internal hemorrhoids Irritable bowel syndrome Menorrhagia Non-ST elevation (NSTEMI) myocardial infarction Vitamin D deficiency Surgical History H/O: hysterectomy TLH salpingectomy, retains ovaries, 2019 History of esophagogastroduodenoscopy (EGD) History of open reduction and internal fixation (ORIF) procedure NASAL Hx of colonoscopy Hx of hernia repair X2 Hx of wisdom tooth extraction Family History Father Stroke syndrome Hypertension Sleep apnea Myocardial infarction Coronary heart disease Hx of CABG, Onset Age: 65 Mother Hypothyroidism Aunt Coronary heart disease paternal Uncle Coronary heart disease paternal Denies family history of Ovarian cancer Prostate cancer Crohn's disease Breast cancer Colorectal cancer Ulcerative colitis Social History Smoking Status: Never smoker Second Hand Exposure: No; Hx Alcohol Use: Yes Hx Substance Use: No Preferred Language: Liberian Communication Ability: Effective Visual Impairment: No Limitations Beliefs That Will Affect Care: None marital status: Current Living Situation: Alone current occupational status: employed Feels Safe at Home: Yes Childhood Exposure to Second-Hand Smoke: No Dental Care, Regularly: Yes Physical Activity Frequency: 3-4 Times per Week Seatbelt Use: always Assistive Devices: Glasses Allergies Allergies Allergy/AdvReac Type Severity Reaction Status Date / Time No Known Drug Allergies Allergy Verified 12/09/21 08:54 Home Meds Home Medications Medication Instructions Recorded Confirmed calcium carbonate 600 mg-vitamin 1 tab PO QAM 12/11/18 12/09/21 D3 5 mcg (200 unit) tablet cholecalciferol (vitamin D3) 125 5,000 units PO QAM 12/11/18 12/09/21 mcg (5,000 unit) capsule multivitamin (Daily Multi-Vitamin 1 tab PO QAM 12/11/18 12/09/21 tablet) fluticasone propionate 50 2 sprays intranasal QAM PRN 12/20/18 12/09/21 mcg/actuation nasal ALLERGIES spray,suspension fexofenadine 180 mg tablet 180 mg PO QAM 03/04/19 12/09/21 (Paz Allergy) Previous Rx's Medication Instructions Recorded CPAP Machine #1 ea 07/03/20 albuterol sulfate 2.5 mg/3 mL 2.5 mg (3 mL) inhalation Q4H PRN 08/17/20 (0.083 %) solution for nebulization wheezing #90 mL nebulizer accessories #1 ea 08/17/20 albuterol sulfate 90 mcg/actuation 2 puff inhalation Q4H PRN 07/24/21 aerosol inhaler Shortness Of Breath #18 grams estradiol 0.01% (0.1 mg/gram) 0.5 g vaginal 2XWK #42.5 grams 10/21/21 vaginal cream escitalopram oxalate 20 mg tablet 20 mg PO DAILY #90 tabs 10/22/21 (Lexapro) fluticasone 250 mcg-salmeterol 50 See Rx Instructions .Route 10/22/21 mcg/dose blistr powdr for .COMPLEX #180 grams inhalation (Wixela Inhub) losartan 25 mg tablet 25 mg PO DAILY #90 tabs 10/22/21 montelukast 10 mg tablet 10 mg PO HS #90 tabs 10/22/21 aspirin 81 mg tablet,delayed 81 mg PO QAM #30 tabs 12/07/21 release nitroglycerin 0.4 mg sublingual 0.4 mg sublingual UD PRN chest 12/07/21 tablet (Nitrostat) pain #1 btl clopidogrel 75 mg tablet 75 mg PO QAM #90 tabs 12/09/21 isosorbide mononitrate 30 mg 30 mg PO DAILY #30 tabs 12/09/21 tablet,extended release 24 hr metoprolol tartrate 50 mg tablet 50 mg PO BID #180 tabs 12/09/21 pantoprazole 40 mg tablet,delayed 40 mg PO QAM #90 tabs 12/09/21 release rosuvastatin 20 mg tablet (Crestor) 20 mg PO HS #90 tabs 12/09/21 Results & Data (ED) Vital Signs Vital Signs - 24 hr 12/05/21 07:24 12/05/21 07:51 12/05/21 08:00 Pulse Rate 81 Pulse Rate [Apical] 82 Respiratory Rate 16 16 Respiratory Effort / Characteristics Non-Labored Spontaneous Respiratory Depth Normal Blood Pressure 138/88 Blood Pressure [Right Arm] 141/105 H 138/78 Blood Pressure Mean 104 Blood Pressure Mean [Right Arm] 117 98 Blood Pressure Position [Right Arm] Pulse Oximetry 98 96 Oxygen Delivery Method Room Air Sepsis Recent Fever Within 48 Hours No Sepsis New/Unexplained Change in Mental Status No Sepsis Action Taken by Nursing No Action Required 12/05/21 08:35 12/05/21 09:21 12/05/21 10:04 Pulse Rate Pulse Rate [Apical] 82 90 82 Respiratory Rate 18 18 18 Respiratory Effort / Characteristics Non-Labored Spontaneous Non-Labored Spontaneous Non-Labored Spontaneous Respiratory Depth Normal Normal Normal Blood Pressure Blood Pressure [Right Arm] 120/77 114/80 142/75 H Blood Pressure Mean Blood Pressure Mean [Right Arm] 91 91 97 Blood Pressure Position [Right Arm] Lying Lying Lying Pulse Oximetry 98 98 98 Oxygen Delivery Method Room Air Room Air Room Air Sepsis Recent Fever Within 48 Hours Sepsis New/Unexplained Change in Mental Status Sepsis Action Taken by [facility] Medications Current Medication List: was personally reviewed by me Laboratory Data Attestation: I reviewed the patient's lab results. Result diagrams: 12/07/21 07:38 12/07/21 07:38 Lab Results 12/05/21 12/05/21 12/05/21 Range/Units 07:39 07:39 07:39 WBC 6.62 (4.8-10.8) K/ul RBC 4.54 (3.93-5.22) M/uL Hgb 13.4 (12.0-16.0) g/dl Hct 41.2 (34.1-44.9) % MCV 90.7 (80.0-100.0) fL MCH 29.5 (25.0-34.0) pg MCHC 32.5 (32.0-36.0) g/dL RDW Std Deviation 45.4 (36.4-46.3) fL RDW Coeff of Napoleon 13.6 (11.5-14.5) % Plt Count 279 (130-400) K/uL MPV 8.2 L (9.4-12.3) fL Immature Gran % (Auto) 0.3 % Neut % (Auto) 51.2 % Lymph % (Auto) 34.4 % Bandera % (Auto) 10.9 % Eos % (Auto) 2.4 % Baso % (Auto) 0.8 % Neut # (Auto) 3.39 (1.4-6.5) K/uL Lymph # (Auto) 2.28 (1.2-3.4) K/uL Bandera # (Auto) 0.72 (0.24-0.82) K/uL Eos # (Auto) 0.16 (0-0.50) K/uL Baso # (Auto) 0.05 (0-0.2) K/uL Immature Gran # (Auto) 0.02 (0.00-0.02) K/uL PT 10.2 (9.0-12.0) Seconds INR 1.0 (0.9-1.1) APTT 29.8 (21.0-31.0) Seconds PTT Ratio 1.1 Sodium 141 (136-145) mmol/L Potassium 3.1 L (3.5-5.1) mmol/L Chloride 105 (98-107) mmol/L Carbon Dioxide 31 (21-32) mmol/L Anion Gap 5 (3-11) BUN 14 (6-23) mg/dl Creatinine 0.94 (0.6-1.2) mg/dl Est Cr Clr Drug Dosing 84.8 ml/min Est GFR ( Amer) 82.6 ml/min Est GFR (Non-Af Amer) 71.2 ml/min BUN/Creatinine Ratio 14.9 (10-20) Glucose 91 (70-99(Fasting)) mg/dl Calcium 9.7 (8.5-10.1) mg/dl Total Bilirubin 0.6 (0.2-1.0) mg/dl AST 20 (13-39) U/L ALT 21 (7-52) U/L Alkaline Phosphatase 92 (34-104) U/L Troponin I High Sens 394.8 H* (0-14) pg/ml Total Protein 6.9 (6.0-8.3) gm/dl Albumin 4.3 (3.4-5.0) gm/dl Globulin 2.6 (2.5-4.0) gm/dl Albumin/Globulin Ratio 1.7 (0.9-2) Lipase 53 (11-82) U/L SARS-CoV-2, RNA, NAAT (NEGATIVE) 12/05/21 12/05/21 Range/Units 08:01 09:44 WBC (4.8-10.8) K/ul RBC (3.93-5.22) M/uL Hgb (12.0-16.0) g/dl Hct (34.1-44.9) % MCV (80.0-100.0) fL MCH (25.0-34.0) pg MCHC (32.0-36.0) g/dL RDW Std Deviation (36.4-46.3) fL RDW Coeff of Napoleon (11.5-14.5) % Plt Count (130-400) K/uL MPV (9.4-12.3) fL Immature Gran % (Auto) % Neut % (Auto) % Lymph % (Auto) % Band[place] % (Auto) % Eos % (Auto) % Baso % (Auto) % Neut # (Auto) (1.4-6.5) K/uL Lymph # (Auto) (1.2-3.4) K/uL Band[place] # (Auto) (0.24-0.82) K/uL Eos # (Auto) (0-0.50) K/uL Baso # (Auto) (0-0.2) K/uL Immature Gran # (Auto) (0.00-0.02) K/uL PT (9.0-12.0) Seconds INR (0.9-1.1) APTT (21.0-31.0) Seconds PTT Ratio Sodium (136-145) mmol/L Potassium (3.5-5.1) mmol/L Chloride (98-107) mmol/L Carbon Dioxide (21-32) mmol/L Anion Gap (3-11) BUN (6-23) mg/dl Creatinine (0.6-1.2) mg/dl Est Cr Clr Drug Dosing ml/min Est GFR ( Amer) ml/min Est GFR (Non-Af Amer) ml/min BUN/Creatinine Ratio (10-20) Glucose (70-99(Fasting)) mg/dl Calcium (8.5-10.1) mg/dl Total Bilirubin (0.2-1.0) mg/dl AST (13-39) U/L ALT (7-52) U/L Alkaline Phosphatase (34-104) U/L Troponin I High Sens 1878.2 H* D (0-14) pg/ml Total Protein (6.0-8.3) gm/dl Albumin (3.4-5.0) gm/dl Globulin (2.5-4.0) gm/dl Albumin/Globulin Ratio (0.9-2) Lipase (11-82) U/L SARS-CoV-2, RNA, NAAT NEGATIVE (NEGATIVE) Administered Medications Discontinued Medications Acetaminophen (Acetaminophen 325 Mg Tab) 650 mg PO Q4H PRN PRN Reason: Pain or Fever Stop: 01/04/22 14:02 Last Admin: 12/07/21 09:28 Dose: 650 mg Documented By: Admin: 12/05/21 20:22 Dose: 650 mg Documented By: SHERI Aspirin (Aspirin 81 Mg Chew) 324 mg PO NOW STA Stop: 12/05/21 07:46 Last Admin: 12/05/21 07:51 Dose: 324 mg Documented By: JESUS MANUEL Aspirin (Aspirin 81 Mg Ectab) 81 mg PO [facility] Stop: 01/05/22 08:59 Last Admin: 12/07/21 07:35 Dose: 81 mg Documented By: Admin: 12/06/21 08:13 Dose: 81 mg Documented By: [id number] Clopidogrel Bisulfate (Clopidogrel Bisulfate 75 Mg Tab) 75 mg PO NOW ONE Stop: 12/05/21 18:17 Last Admin: 12/05/21 20:23 Dose: 75 mg Documented By: SHERI Clopidogrel Bisulfate (Clopidogrel Bisulfate 75 Mg Tab) 75 mg PO [facility] Stop: 01/05/22 08:59 Last Admin: 12/07/21 07:34 Dose: 75 mg Documented By: Admin: 12/06/21 08:14 Dose: 75 mg Documented By: [id number] Colchicine (Colchicine 0.6 Mg Tab) 0.6 mg PO BID [facility] Stop: 01/04/22 16:09 Last Admin: 12/05/21 17:42 Dose: 0.6 mg Documented By: DTT Escitalopram Oxalate (Escitalopram Oxalate 20 Mg Tab) 20 mg PO DAILY [facility] Stop: 01/05/22 08:59 Last Admin: 12/07/21 07:35 Dose: 20 mg Documented By: Admin: 12/06/21 09:46 Dose: 20 mg Documented By: DTT Fentanyl Citrate (Fentanyl Citrate 100 Mcg/2 Ml Vial) Confirm Administered Dose 100 mcg .ROUTE .STK-MED ONE Stop: 12/05/21 10:50 Last Increment: 12/05/21 11:19 Dose: 25 mcg Documented By: TLF Fexofenadine HCl (Fexofenadine Hcl 180 Mg Tab) 180 mg PO QAM [facility] Stop: 01/05/22 08:59 Last Admin: 12/07/21 07:35 Dose: 180 mg Documented By: Admin: 12/06/21 09:46 Dose: 180 mg Documented By: ENA Fluticasone/Vilanterol (Fluticasone/Vilanterol 200/25mcg 14 Puffs/Inhaler) 1 puffs INH DAILY [facility] Stop: 01/04/22 15:59 Last Admin: 12/07/21 07:36 Dose: 1 puffs Documented By: Admin: 12/06/21 08:18 Dose: 1 puffs Documented By: [id number] Admin: 12/05/21 17:42 Dose: 1 puffs Documented By: ENA Heparin Sodium (Porcine) (Heparin Sod (Porcine) 1000 Unit/Ml) 4,000 units IV NOW STA Stop: 12/05/21 09:46 Last Admin: 12/05/21 09:59 Dose: 4,000 units Documented By: JESUS MANUEL Co-signed By: TONIA Heparin Sodium (Porcine) (Heparin (Porcine) 1000 Unit/Ml 10 Ml ([place] Use Only)) Confirm Administered Dose 10,000 units .ROUTE .STK-MED ONE Stop: 12/05/21 10:50 Last Admin: 12/05/21 11:19 Dose: 2,000 units Documented By: TLF Heparin Sodium/Dextrose (Heparin Iv Adult Wt-Based Standard *No* Bolus Protocol) 1 each IV ONE ONE; Protocol Stop: 12/05/21 18:44 Last Admin: 12/05/21 21:38 Dose: Not Given Documented By: CLC Heparin Sodium/Sodium Chloride (Heparin In Nss Infusion 1000 Unit/500 Ml (2 U/Ml) Bag) Confirm Administered Dose 3,000 units IV .STK-MED ONE Stop: 12/05/21 10:50 Last Admin: 12/05/21 11:20 Dose: 3,000 units Documented By: TLF Heparin Sodium/Dextrose (Heparin Sodium/Dextrose) 25,000 units in 500 mls @ 18 mls/hr IV .Q24H [facility]; Protocol Stop: 01/04/22 09:29 Last Titration: 12/05/21 16:25 Dose: 0 units/hr, 0 mls/hr Documented By: DTT Co-signed By: SDC Admin: 12/05/21 09:59 Dose: 900 units/hr, 18 mls/hr Documented By: JESUS MANUEL Co-signed By: TONIA Sodium Chloride (Nss 1000ml) 1,000 mls @ 125 mls/hr IV .Q8H [facility] Stop: 12/05/21 16:00 Last Infusion: 12/05/21 20:22 Dose: 0 mls/hr Documented By: Admin: 12/05/21 14:52 Dose: 125 mls/hr Documented By: DTT Heparin Sodium/Dextrose (Heparin Sodium/Dextrose) 25,000 units in 500 mls @ 27 mls/hr IV .[id number] [facility]; Protocol Stop: 01/04/22 18:59 Last Admin: 12/07/21 10:03 Dose: Not Given Documented By: Titration: 12/07/21 10:03 Dose: 0 units/hr, 0 mls/hr Documented By: LINDA Co-signed By: CLEMENTINA Admin: 12/06/21 13:36 Dose: 1,350 units/hr, 27 mls/hr Documented By: [id number] Co-signed By: DTT Titration: 12/06/21 13:36 Dose: 1,350 units/hr, 27 mls/hr Documented By: [id number] Co-signed By: DTT Titration: 12/06/21 07:09 Dose: 1,350 units/hr, 27 mls/hr Documented By: [id number] Co-signed By: LEBRON Titration: 12/06/21 05:46 Dose: 1,350 units/hr, 27 mls/hr Documented By: KS Co-signed By: CLC Admin: 12/05/21 21:37 Dose: 1,350 units/hr, 27 mls/hr Documented By: SHERI Co-signed By: LEBRON Ioversol (Optiray 320 125ml) 120 ml IV ONCE ONE Stop: 12/05/21 12:42 Last Admin: 12/05/21 12:42 Dose: 120 ml Documented By: RODRICK(2) Losartan Potassium (Losartan Potassium 25 Mg Tab) 25 mg PO DAILY [facility] Stop: 01/05/22 08:59 Last Admin: 12/07/21 07:34 Dose: 25 mg Documented By: Admin: 12/06/21 09:46 Dose: 25 mg Documented By: ENA Melatonin (Melatonin 3 Mg Tab) 3 mg PO HS PRN PRN Reason: Sleep Stop: 01/05/22 13:10 Last Admin: 12/06/21 20:57 Dose: 3 mg Documented By: SHERI Metoprolol Tartrate (Metoprolol Tartrate 25 Mg Tab) 25 mg PO BID [facility] Stop: 01/04/22 20:59 Last Admin: 12/06/21 08:16 Dose: 25 mg Documented By: [id number] Admin: 12/05/21 20:24 Dose: 25 mg Documented By: SHERI Metoprolol Tartrate (Metoprolol Tartrate 50 Mg Tab) 50 mg PO BID [facility] Stop: 01/05/22 20:59 Last Admin: 12/07/21 07:36 Dose: 50 mg Documented By: Admin: 12/06/21 20:57 Dose: 50 mg Documented By: SHERI Midazolam HCl (Midazolam Hcl 1 Mg/Ml 2ml Vial) Confirm Administered Dose 2 mg .R OUTE .STK-MED ONE Stop: 12/05/21 10:50 Last Admin: 12/05/21 11:20 Dose: 1 mg Documented By: RADHA Montelukast Sodium (Montelukast Sodium 10 Mg Tablet) 10 mg PO HS [facility] Stop: 01/04/22 20:59 Last Admin: 12/06/21 20:58 Dose: 10 mg Documented By: Admin: 12/05/21 22:02 Dose: 10 mg Documented By: LEBRON Nicardipine HCl (Nicardipine Hcl Inj 2.5 Mg/Ml 10 Ml Amp) Confirm Administered Dose 25 mg .ROUTE .STK-MED ONE Stop: 12/05/21 10:50 Last Admin: 12/05/21 11:20 Dose: 25 mg Documented By: RIP Nitroglycerin (Nitroglycerin Sl 0.4 Mg/Tab Tab) 0.4 mg SL NOW STA Stop: 12/05/21 07:46 Last Admin: 12/05/21 07:51 Dose: 0.4 mg Documented By: JESUS MANUEL Nitroglycerin (Nitroglycerin 2% Ointment 30gm Tube) 1 inch EXT NOW STA Stop: 12/05/21 09:05 Last Admin: 12/05/21 09:21 Dose: 1 inch Documented By: JESUS MANUEL Nitroglycerin (Nitroglycerin 2% Ointment 30gm Tube) 1 inch EXT Q6 [facility] Stop: 01/04/22 14:02 Last Admin: 12/05/21 14:52 Dose: 1 inch Documented By: ENA Nitroglycerin/Dextrose (Nitroglycerin/D5w 100mcg/Ml 20ml Syr) Confirm A dministered Dose 2,000 mcg .ROUTE .STK-MED ONE Stop: 12/05/21 10:51 Last Admin: 12/05/21 11:20 Dose: 2,000 mcg Documented By: RIP Pantoprazole Sodium (Pantoprazole 40 Mg Tab) 40 mg PO QAM [facility] Stop: 01/04/22 14:29 Last Admin: 12/07/21 07:35 Dose: 40 mg Documented By: Admin: 12/06/21 08:17 Dose: 40 mg Documented By: [id number] Admin: 12/05/21 15:01 Dose: 40 mg Documented By: ENA Potassium Chloride (Potassium Chloride Crtab 20 Meq Tabcr) 40 meq PO NOW STA Stop: 12/05/21 14:04 Last Admin: 12/05/21 14:51 Dose: 40 meq Documented By: ENA Potassium Chloride (Potassium Chloride Crtab 20 Meq Tabcr) 40 meq PO NOW STA Stop: 12/06/21 10:47 Last Admin: 12/06/21 11:13 Dose: 40 meq Documented By: ENA Rosuvastatin Calcium (Rosuvastatin Calcium 5 Mg Tab) 5 mg PO DAILY [facility] Stop: 01/04/22 14:29 Last Admin: 12/05/21 14:51 Dose: 5 mg Documented By: ENA Rosuvastatin Calcium (Rosuvastatin Calcium 20 Mg Tab) 20 mg PO DAILY [facility] Stop: 01/05/22 08:59 Last Admin: 12/07/21 07:35 Dose: 20 mg Documented By: Admin: 12/06/21 08:17 Dose: 20 mg Documented By: [id number] Imaging Data Radiologist's Impression: Chest X-Ray 12/05/21 07:36 XR chest 1V portable HISTORY: 51 years-old Female Chest Pain acute atypical chest pain COMPARISON: Chest radiograph 10/04/2013 TECHNIQUE: Portable AP view of the chest FINDINGS: The cardiomediastinal and hilar silhouettes are within normal limits. No pneumothorax, pleural effusion, airspace consolidation or overt pulmonary edema. Bones of the chest appear grossly intact. IMPRESSION: No acute process. ACT 112: Negative or not required by law. The above report was generated using voice recognition software. It may contain grammatical, syntax or spelling errors. Electronically signed by: José Antonio Zelaya M.D. 12/05/2021 8:11 AM Blood Pressure Blood Pressure Findings: Elevated blood pressure Blood Pressure Disposition: further management by hospitalist Discharge Plan Visit Data Chief Complaint: Avulsion Stated Complaint: CHEST PAIN AND L ARM PAIN ED Provider: Jael Moura Discharge Problem: Non-ST elevation CA (NSTEMI) Patient Disposition: Admitted As Inpatient Condition: Good Discharge Instructions Interventions: ED Discharge Assessment Last Done: 12/05/21 10:30
--- NOTE | 2021-12-05 10:33 | Cardiology Consultation ---
Date of Consultation December 05, 2021 Assessment & Plan (1) Non-ST elevation (NSTEMI) myocardial infarction: (2) Hypercholesteremia: (3) Hypertension: Plan ASSESSMENT/PLAN: 1. Acute NSTEMI: Has ongoing chest discomfort and rising troponins. Recommend urgent cardiac catheterization. Risks and benefits were discussed with her in detail. She was made aware that CT surgery is not available at this facility. Has received full-dose aspirin. Heparin drip is running in the ER. Recommend beta-danial and can continue ARB. High-intensity statin therapy. 2. Hypertension: Blood pressure has been mostly normotensive to mildly hypertensive. Plan as above. Optimize blood pressure. 3. Dyslipidemia: If CAD confirmed on catheterization, would recommend high- intensity statin therapy with goal LDL < 70. 4. Disposition: Plan of care discussed with Dr. Chaudhry of the primary hospitalist service. Cardiology will continue to follow. Ms. Lee has asked that her babdwr-ld-qnr, Raquel, be notified of findings. Highly complex medical issues. Thank you for allowing me to participate in the care of your patient. Please call for any other questions or concerns. Sincerely, Jimi Cruz M.D. Addendum: Cardiac catheterization was without significant CAD. Consider other causes of chest discomfort with elevated troponin such as myocarditis versus pulmonary emboli, versus other causes. Following cardiac catheterization, she admits that she recently was seen by a dentist who had concerns that she had a recent viral illness based on the exam of her oropharynx. History of Present Illness Reason for Consultation: Acute coronary syndrome Requesting Physician: Dr. Moura Attending Physician: Dr. Chaudhry History of Present Illness Ms. Lee is a very pleasant 51-year-old female with a history significant for hypertension, dyslipidemia, asthma, and strong family history of CAD. She presented to the emergency department on 12/05/2021 with chest discomfort. She woke up at approximately 3:00 a.m. this morning with substernal chest disc omfort to the left side of her chest but was able to fall back asleep until it woke her up again at 6:00 a.m.. She noted that her left arm also felt heavy with tingling. The chest pain has been mostly constant since then. She initially took Tums with no significant relief. In the emergency department, she received nitroglycerin which improved her pain and then nitroglycerin paste was applied. Her chest pain has mostly been approximately 2/10 following nitroglycerin however it has subsided briefly at times, only to recur. There has not been any associated shortness of breath and no diaphoresis associated with the chest pain. She did have diaphoresis last night before bed but admits that she has hot flashes at times. She has had chest discomfort on and off for the past year or so but it has occurred at random times and not necessarily associated with exertion. She went to an urgent care earlier this year and had an ECG which was unremarkable per her report. She is active and has not noted exertional symptoms. She denies melena or hematuria. She does have occasional blood with bowel movements but has known hemorrhoids. She denies recent fevers, nausea, vomiting, palpitations, syncope, near-syncope, edema, or leg pain. Review of systems: As above. Review of systems otherwise negative/unremarkable. Family history: Father had CABG x3 at 65. Paternal aunt at 45 with [facility]. Paternal aunt at 65 with [facility]. Paternal uncle had PCI in his 50s. Social history: She denies tobacco abuse. Rare alcohol. She has 2 children. She is not . 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 Her lpulcr-so-cug is Raquel Gibbs (cardiac rehab nurse). Her boyfriend, Edmundo, is present at the bedside. Allergies Allergy/AdvReac Type Severity Reaction Status Date / Time No Known Drug Allergies Allergy Verified 09/19/21 16:21 Home Medications Medication Instructions Recorded Confirmed Type calcium carbonate 600 mg-vitamin 1 tab PO QAM 12/11/18 09/19/21 History D3 5 mcg (200 unit) tablet cholecalciferol (vitamin D3) 125 5,000 units PO QAM 12/11/18 09/19/21 History mcg (5,000 unit) capsule multivitamin (Daily Multi-Vitamin 1 tab PO QAM 12/11/18 09/19/21 History tablet) omeprazole 20 mg capsule,delayed 20 mg PO QAM 12/11/18 09/19/21 History release fluticasone propionate 50 2 sprays intranasal QAM PRN 12/20/18 09/19/21 History mcg/actuation nasal ALLERGIES spray,suspension fexofenadine 180 mg tablet 180 mg PO QAM 03/04/19 09/19/21 History (Paz Allergy) CPAP Machine #1 ea 07/03/20 09/19/21 Rx albuterol sulfate 2.5 mg/3 mL 2.5 mg (3 mL) inhalation Q4H PRN 08/17/20 09/19/21 Rx (0.083 %) solution for nebulization wheezing #90 mL nebulizer accessories #1 ea 08/17/20 09/19/21 Rx albuterol sulfate 90 mcg/actuation 2 puff inhalation Q4H PRN 07/24/21 09/19/21 Rx aerosol inhaler Shortness Of Breath #18 grams estradiol 0.01% (0.1 mg/gram) 0.5 g vaginal 2XWK #42.5 grams 10/21/21 Rx vaginal cream escitalopram oxalate 20 mg tablet 20 mg PO DAILY #90 tabs 10/22/21 Rx (Lexapro) fluticasone 250 mcg-salmeterol 50 See Rx Instructions .Route 10/22/21 Rx mcg/dose blistr powdr for .COMPLEX #180 grams inhalation (Wixela Inhub) hydrochlorothiazide 25 mg tablet 25 mg PO DAILY #90 tabs 10/22/21 Rx losartan 25 mg tablet 25 mg PO DAILY #90 tabs 10/22/21 Rx montelukast 10 mg tablet 10 mg PO HS #90 tabs 10/22/21 Rx rosuvastatin 5 mg tablet 5 mg PO DAILY #90 tabs 10/22/21 Rx Patient History Medical History Anxiety Asthma stable Depression Gastritis stable on PPI High cholesterol Hypertension Internal hemorrhoids Irritable bowel syndrome Menorrhagia Vitamin D deficiency Surgical History H/O: hysterectomy History of esophagogastroduodenoscopy (EGD) History of open reduction and internal fixation (ORIF) procedure Hx of colonoscopy Hx of hernia repair Hx of wisdom tooth extraction Family History Father Stroke syndrome Hypertension Sleep apnea Myocardial infarction Coronary heart disease Hx of CABG, Onset Age: 65 Mother Hypothyroidism Aunt Coronary heart disease paternal Uncle Coronary heart disease paternal Denies family history of Ovarian cancer Prostate cancer Crohn's disease Breast cancer Colorectal cancer Ulcerative colitis Social History Smoking Status: Never smoker Second Hand Exposure: No; Hx Alcohol Use: Yes Hx Substance Use: No Preferred Language: [place] Communication Ability: Effective Visual Impairment: No Limitations Beliefs That Will Affect Care: None marital status: Current Living Situation: Alone current occupational status: employed Feels Safe at Home: Yes Childhood Exposure to Second-Hand Smoke: No Dental Care, Regularly: Yes Physical Activity Frequency: 3-4 Times per Week Seatbelt Use: always Assistive Devices: Glasses Physical Exam Physical Exam: Gen.: No acute distress. Alert and oriented. HEENT: Anicteric sclera. Neck: No JVD. No bruits. Normal carotid upstrokes bilaterally. Cardiac: No ventricular heave. Regular. Normal S1-S2. No murmurs, rubs, or gallops. Pulmonary: Clear to auscultation bilaterally without wheezes, rales, or rhonchi. Abdomen: Soft, nontender, nondistended, with normoactive bowel sounds. No bruits noted. Extremities: 2+ radial pulses bilaterally. 2+ posterior tibialis pulses bilaterally. No edema or cyanosis. No palpable cords. Psychiatric: Affect appears appropriate. Results & Data ([facility]) Vital Signs (Past 12 Hours) Vital Signs Pulse Pulse Resp BP BP Pulse Ox O2 Del Method 12/05/21 10:04 82 18 142/75 H 98 Room Air 12/05/21 09:21 90 18 114/80 98 Room Air 12/05/21 08:35 82 18 120/77 98 Room Air 12/05/21 08:00 138/78 12/05/21 07:51 82 16 141/105 H 96 Room Air 12/05/21 07:24 81 16 138/88 98 Laboratory Results Laboratory Results - last 24 hr 12/05/21 12/05/21 12/05/21 07:39 07:39 07:39 WBC 6.62 RBC 4.54 Hgb 13.4 Hct 41.2 MCV 90.7 MCH 29.5 MCHC 32.5 RDW Std Deviation 45.4 RDW Coeff of [place] 13.6 Plt Count 279 MPV 8.2 L Immature Gran % (Auto) 0.3 Neut % (Auto) 51.2 Lymph % (Auto) 34.4 [place] % (Auto) 10.9 Eos % (Auto) 2.4 Baso % (Auto) 0.8 Neut # (Auto) 3.39 Lymph # (Auto) 2.28 [place] # (Auto) 0.72 Eos # (Auto) 0.16 Baso # (Auto) 0.05 Immature Gran # (Auto) 0.02 PT 10.2 INR 1.0 APTT 29.8 PTT Ratio 1.1 Sodium 141 Potassium 3.1 L Chloride 105 Carbon Dioxide 31 Anion Gap 5 BUN 14 Creatinine 0.94 Est Cr Clr Drug Dosing 84.8 Est GFR ( Amer) 82.6 Est GFR (Non-Af Amer) 71.2 BUN/Creatinine Ratio 14.9 Glucose 91 Calcium 9.7 Total Bilirubin 0.6 AST 20 ALT 21 Alkaline Phosphatase 92 Troponin I High Sens 394.8 H* Total Protein 6.9 Albumin 4.3 Globulin 2.6 Albumin/Globulin Ratio 1.7 Lipase 53 SARS-CoV-2, RNA, NAAT 12/05/21 12/05/21 08:01 09:44 WBC RBC Hgb Hct MCV MCH MCHC RDW Std Deviation RDW Coeff of [place] Plt Count MPV Immature Gran % (Auto) Neut % (Auto) Lymph % (Auto) [place] % (Auto) Eos % (Auto) Baso % (Auto) Neut # (Auto) Lymph # (Auto) [place] # (Auto) Eos # (Auto) Baso # (Auto) Immature Gran # (Auto) PT INR APTT PTT Ratio Sodium Potassium Chloride Carbon Dioxide Anion Gap BUN Creatinine Est Cr Clr Drug Dosing Est GFR ( Amer) Est GFR (Non-Af Amer) BUN/Creatinine Ratio Glucose Calcium Total Bilirubin AST ALT Alkaline Phosphatase Troponin I High Sens 1878.2 H* D Total Protein Albumin Globulin Albumin/Globulin Ratio Lipase SARS-CoV-2, RNA, NAAT NEGATIVE Diagnostic Findings ECGs personally reviewed: ECG 12/05/2021 at 7:25 a.m.: Sinus rhythm 76 beats per minute. Nonspecific T- wave abnormality. ECG 12/05/2021 at 10:25 a.m.: Sinus rhythm 71 beats per minute. Nonspecific T- wave abnormality. Chest x-ray 12/05/2021: No acute process per Radiology. Echo images reviewed from 12/05/2021: Preliminary review at the bedside demonstrated normal LV systolic function. Possible hypokinesis of the basal inferoseptum. Formal review to follow. Medications Administered Current Inpatient Medications Heparin Sodium/Dextrose (Heparin Sodium/Dextrose) 25,000 units in 500 mls @ 18 mls/hr IV .Q24H [facility]; Protocol Stop: 01/04/22 09:29 Last Admin: 12/05/21 09:59 Dose: 900 units/hr, 18 mls/hr PG Care Time/CCT Total # of Minutes Spent Total Time Spent with Patient: Total time spent is greater than 50% in coordination of care (as documented) at patient's floor/unit and/or counseling patient: Coding Level of Care Code 82562 Inpt Consult Level 5 Diagnoses Non-ST elevation (NSTEMI) myocardial infarction I21.4 Hypercholesteremia E78.00 Hypertension I10
[2021-12-05] MEDS ORDERED: MIDAZOLAM HCL 1 MG/ML 2ML VIAL ONE (10:49)
[2021-12-05] MEDS ORDERED: niCARdipine HCL INJ 2.5 MG/ML 10 ML AMP ONE (10:49)
[2021-12-05] MEDS ORDERED: fentaNYL citrate 100 MCG/2 ML VIAL ONE (10:49)
[2021-12-05] MEDS ORDERED: HEPARIN (PORCINE) 1000 UNIT/ML 10 ML (CATH LAB USE ONLY) ONE (10:49)
[2021-12-05] MEDS ORDERED: NITROGLYCERIN/D5W 100MCG/ML 20ML SYR ONE (10:50)
--- NOTE | 2021-12-05 11:39 | Cardiac Catheterization ---
[facility] Data: Interactive Multimedia [employer]er Cardiac Status Clinical evaluation leading to the procedure CAD Presenation: Non STEMI and Unstable angina Anginal Classification: CCS IV Heart Failure: No Cardiogenic Shock within 24 Hours: No Cardiac Arrest within 24 Hours: No Imaging Studies Past 6 Months: No Stress Studies Past 6 Months: No Coronary Anatomy Dominant: Right Diagnostic Physicians Name: Chon Cruz MD Closure Device Percutaneous Entry Location: Radial Closure Device: Radial Band Recommendations: Management Recommendatons Cardiac Cath Procedure Full Procedure Date December 05, 2021 Pre-Procedure Diagnosis Pre-Procedure Diagnosis: Non STEMI and Angina AUC Score AUC Score: 8 Post-Procedure Diagnosis Post-Procedure Diagnosis: Normal Coronary Arteries and Normal Intracardiac Pressures Procedure(s) Performed Procedure(s) Performed: Coronary Angiography and Left Heart Cath Warp Dyeing Vat Tender Chon Cruz MD Cook Fruit(s) Tire Duster Estimated Blood Loss Estimated Blood Loss: < 20 ml Medication(s) Medication(s): Fentanyl, Heparin, Lidocaine 1%, Nicardipine and Versed Summary of Findings Procedures: 1. Coronary angiography 2. Left heart catheterization 3. Moderate sedation Indication: 51-year-old female with a history of hypertension, dyslipidemia, and family history of premature CAD who presented with ongoing chest discomfort which improved with nitroglycerin and elevated troponins which continue to trend upward. Given that her symptoms did not completely resolve with medical therapy, urgent cardiac catheterization was recommended. Coronary angiography: 1. Left main: No significant CAD. 2. Left anterior descending: No CAD noted within the LAD or large D1. CAMMIE-3 flow. 3. Circumflex: Circumflex gives rise to a large high OM1. Medium caliber OM 2. No significant CAD within the circumflex system. 4. Right coronary artery: RCA is large and dominant. No significant CAD within the RCA, PDA, or PL. Left heart catheterization: 1. Left ventriculography was not performed. 2. No aortic stenosis. 3. LVEDP 11 mmHg. Moderate sedation: 1. Sedation start time: 10:56 AM 2. Sedation end time: 11:25 AM Impression: 1. No significant CAD. 2. Normal left-sided filling pressure. 3. No aortic stenosis. Plan: 1. Continue risk factor modification. 2. Consider other causes of chest discomfort with elevated troponin. Hemodynamics Rest Ao:: 110/71 Final Ao: 121/77 LV: 123/4/11 Recommendations Recommendations: Management Recommendatons Specimens Specimens: None Radiation Exposure (mGy) 867 mGy. Fluoro tmie 9.4 min. Contrast (mls) 45 ml Procedural Complication(s) None Disposition Interactive Multimedia Designer Holding/Recovery I attest to the content of the Intraoperative Record and any orders documented therein. Any exceptions are noted below. [facility] Card Cath Procedure Codes Cardiac Catheterization Procedure 1: Cardiovascular Cath Procedures: 07135 Coronaries and LHC (+/-LV) Moderate Sedation Procedure 1: Sedation/Anesthesia: 43188 Mod Sedation by the same physician;Init15 Min Child Age 5 & Up Procedure 2: Sedation/Anesthesia: 52276 Mod Sedation by the same physician; Ea [id number] Minutes PG Care Time/CCT Total # of Minutes Spent Total Time Spent with Patient: Total time spent is greater than 50% in coordination of care (as documented) at patient's floor/unit and/or counseling patient:
[2021-12-05] MEDS ORDERED: SODIUM CHLORIDE 0.9% 1000ML 1,000 ML IV SCH (12:15)
[2021-12-05] MEDS ORDERED: OPTIRAY 320 125ml IV ONE (12:41)
--- NOTE | 2021-12-05 13:05 | CT Scan Report ---
CT angio chest PE protocol CLINICAL HISTORY: chest pain,elevated troponin. Evaluate for pulmonary embolus COMPARISON STUDY: Portable chest from 12/05/2021 CT DOSE: 419.84 mGy.cm TECHNIQUE: CT Angio of the chest was performed.followed by image post processing with coronal, and s agittal MIP reformats. Contrast Volume: Optiray 320, 120 ml FINDINGS: Vasculature: There is homogeneous perfusion of the pulmonary vasculature bilaterally. No intraluminal filling defects or evidence for pulmonary embolus is seen. Airway: The airway is clear. No endobronchial lesion is identified. Lungs: There is linear atelectasis at both lung bases. The lungs are clear of acute alveolar opacitie s, air bronchograms or pulmonary nodules. Pleura: There is no evidence for pleural effusion. There is no evidence for pneumothorax. Mediastinum: There is no evidence for pathologic adenopathy. The heart size is within normal limits. The thoracic aorta is within normal limits. There is no evidence for pericardial effusion. Osseous structures: There is no acute osseous pathology. Impression: 1. No CTA evidence for pulmonary embolus. 2. Linear atelectasis at both lung bases with otherwise no acute chest disease. ACT 112: Negative or not required by law. Electronically signed by: Jem Aguirre M.D. 12/05/2021 1:03 PM
[2021-12-05] MEDS ORDERED: ALBUTEROL 0.083% NEBU SOLN 3 ML VIAL INH PRN (14:03)
[2021-12-05] MEDS ORDERED: POTASSIUM CHLORIDE CRTAB 20 MEQ TABCR PO STA (14:03)
[2021-12-05] MEDS ORDERED: NITROGLYCERIN 2% OINTMENT 30GM TUBE EXT SCH (14:03)
[2021-12-05] MEDS ORDERED: NITROGLYCERIN SL 0.4 MG/TAB TAB SL PRN (14:03)
[2021-12-05] MEDS ORDERED: FLUTICASONE PROPIONATE NA SPR 16 GM BTL NAE PRN (14:03)
[2021-12-05] MEDS ORDERED: ALBUTEROL HFA 8 GM INHALER INH PRN (14:03)
[2021-12-05] MEDS ORDERED: ONDANSETRON INJ 2 MG/ML 2 ML VIAL IV PRN (14:03)
[2021-12-05] MEDS ORDERED: ROSUVASTATIN CALCIUM 5 MG TAB PO SCH (14:30)
[2021-12-05] MEDS: PANTOprazole 40 MG TAB PO SCH (15:01)
[2021-12-05] MEDS ORDERED: COLCHICINE 0.6 MG TAB PO SCH (16:10)
[2021-12-05 16:24] LABS: Partial Thromboplastin Ratio 1.1; Partial Thromboplastin Time 30.2 Seconds (21.0-31.0)
--- NOTE | 2021-12-05 16:42 | Post Anesthesia Assessment ---
Date of Service December 05, 2021 Post Sedation Assessment Vital Signs Temp Pulse Pulse Resp BP BP Pulse Ox 12/05/21 14:03 87 12/05/21 15:39 82 137/84 98 12/05/21 14:00 36.6 C 77 18 133/84 97 12/05/21 13:15 77 18 133/82 96 12/05/21 13:00 78 18 140/84 97 12/05/21 12:45 77 18 130/89 97 12/05/21 12:30 80 18 132/86 93 12/05/21 12:15 82 20 139/94 93 12/05/21 12:00 79 20 138/84 93 12/05/21 11:45 81 20 124/81 93 12/05/21 11:35 81 20 134/77 93 12/05/21 10:32 70 20 147/88 H 98 12/05/21 10:04 82 18 142/75 H 98 12/05/21 09:21 90 18 114/80 98 12/05/21 08:35 82 18 120/77 98 12/05/21 08:00 138/78 12/05/21 07:51 82 16 141/105 H 96 12/05/21 07:24 81 16 138/88 98 O2 Del Method 12/05/21 14:03 12/05/21 15:39 Room Air 12/05/21 14:00 Room Air 12/05/21 13:15 Room Air 12/05/21 13:00 Room Air 12/05/21 12:45 Room Air 12/05/21 12:30 Room Air 12/05/21 12:15 Room Air 12/05/21 12:00 Room Air 12/05/21 11:45 Room Air 12/05/21 11:35 Room Air 12/05/21 10:32 Room Air 12/05/21 10:04 Room Air 12/05/21 09:21 Room Air 12/05/21 08:35 Room Air 12/05/21 08:00 12/05/21 07:51 Room Air 12/05/21 07:24 Recovery Score Activity: Moves 4 extremities Respiration: Deep Breath/Cough Circulation: +/-20% PreAnes Value Consciousness: Fully Awake Oxygen Saturation: > 92% On Room Air Post Anesthesia Score: 10 Discharge Sedation Level of Care: Fast Track Phase II Post Sedation Plan On clinical assessment, the patient appears to have tolerated the sedation without complications. Patient is recovering as anticipated. Patient will continue to be monitored by nursing and may be discharged when sedation discharge criteria are met per below protocol. Upon Completions of procedure up to 15 minutes continue every 5 minute vital signs and the P.A.R. score; then discharge to a Phase I or Fast Track to Phase II per the following guidelines: * Discharge Patient to appropriate Phase II area if PAR is 8 or greater or return to pre- procedure baseline. The post - procedure orders will be as directed. * If PAR score is less than 8 or not return to pre-procedure baseline then patient will follow Phase I monitoring till PAR is reached for Phase II. The Phase I may be done in procedure room or may call to secure a Phase I area. * If naloxone or flumazenil are used for reversal, hold in Phase I for continued monitoring from when last reversal dose was given for a minimum of 60 minutes or longer pending the nurse and/or physician discretion of patient condition before discharge to Phase II. Please call the Sedation Physician to re-evaluate and complete post-note for discharge to Phase II area. Do NOT discharge from procedure sedation or Phase 1 until post- sedation evaluation note is complete by procedure /sedation MD Sedation Discharge Instructions to be given to the patient at discharge to home.
[2021-12-05 16:44] LABS: Troponin I High Sensitivity 5137.7 pg/ml (0-14)
[2021-12-05 17:15] LABS: C Reactive Protein < 0.50 mg/dl (0-0.5)
[2021-12-05] MEDS: FLUTICASONE/VILANTEROL 200/25MCG 14 PUFFS/INHALER INH SCH (17:42)
[2021-12-05] MEDS ORDERED: CLOPIDOGREL BISULFATE 75 MG TAB PO ONE (18:16)
[2021-12-05] MEDS ORDERED: Heparin IV Adult Wt-Based Standard *NO* Bolus Protocol IV ONE (18:43)
--- NOTE | 2021-12-05 19:49 | XCELERA ---
[id number] \\[id number]
[2021-12-05] MEDS: ACETAMINOPHEN 325 MG TAB PO PRN (20:22)
[2021-12-05] MEDS: METOPROLOL TARTRATE 25 MG TAB PO SCH (20:24)
[2021-12-05] MEDS ORDERED: ASPIRIN 325 MG ECTAB PO SCH (21:00)
[2021-12-05] MEDS: HEPARIN SODIUM/DEXTROSE 25,000 UNITS/500 ML BAG IV SCH (21:37)
[2021-12-05 21:42] LABS: Adenovirus PCR Not Detected (NotDetected); Bordetella parapertussis PCR Not Detected (NotDetected); Bordetella pertussis PCR Not Detected (NotDetected); Chlamydia pneumoniae PCR Not Detected (NotDetected); Coronavirus 229E PCR Not Detected (NotDetected); Coronavirus CoV-2 (COVID19)PCR Not Detected (NotDetected); Coronavirus HKU1 PCR Not Detected (NotDetected); Coronavirus NL63 PCR Not Detected (NotDetected); Coronavirus OC43PCR Not Detected (NotDetected); Human Metapneumovirus PCR Not Detected (NotDetected); Influenza A PCR Not Detected (NotDetected); Influenza B PCR Not Detected (NotDetected); Mycoplasma pneumoniae PCR Not Detected (NotDetected); Parainfluenza Virus 1 PCR Not Detected (NotDetected); Parainfluenza Virus 2 PCR Not Detected (NotDetected); Parainfluenza Virus 3 PCR Not Detected (NotDetected); Parainfluenza Virus 4 PCR Not Detected (NotDetected); Respiratory Syncytial VirusPCR Not Detected (NotDetected); Rhinovirus/Enterovirus PCR Not Detected (NotDetected)
[2021-12-05] MEDS: MONTELUKAST SODIUM 10 MG TABLET PO SCH (22:02)
[2021-12-06 04:07] LABS: Basophils # (auto) 0.03 K/uL (0-0.2); Basophils % (auto) 0.4 %; Eosinophils # (auto) 0.15 K/uL (0-0.50); Hematocrit (blood only) 37.9 % (34.1-44.9); Hemoglobin 12.7 g/dl (12.0-16.0); Immature Granulocytes # (auto) 0.02 K/uL (0.00-0.02); Immature Granulocytes % (auto) 0.3 %; Lymphocytes # (auto) 2.06 K/uL (1.2-3.4); Lymphocytes % (auto) 27.7 %; Mean Corpuscular Hemoglobin 29.7 pg (25.0-34.0); Mean Corpuscular Hgb Conc 33.5 g/dL (32.0-36.0); Mean Corpuscular Volume 88.6 fL (80.0-100.0); Mean Platelet Volume 8.2 fL (9.4-12.3); Monocytes # (auto) 0.65 K/uL (0.24-0.82); Monocytes % (auto) 8.7 %; Neutrophils # (auto) 4.53 K/uL (1.4-6.5); Neutrophils % (auto) 60.9 %; Platelet Count 262 K/uL (130-400); RDW Coefficient of Variation 13.8 % (11.5-14.5); RDW Standard Deviation 44.4 fL (36.4-46.3); Red Blood Count 4.28 M/uL (3.93-5.22); White Blood Count 7.44 K/ul (4.8-10.8)
[2021-12-06 04:27] LABS: BUN Creatinine Ratio 14.3 (10-20); Calcium 9.2 mg/dl (8.5-10.1); Chol HDL Ratio 3.1 (0-5); Creatinine Clr Calc Pharmacy 87.6 ml/min; Est GFR (African American) 85.9 ml/min; Est GFR (Non-African American) 74.1 ml/min; Potassium 3.7 mmol/L (3.5-5.1)
[2021-12-06 04:36] LABS: Partial Thromboplastin Ratio 2.3
[2021-12-06 04:49] LABS: Partial Thromboplastin Time 63.5 Seconds (21.0-31.0)
[2021-12-06 07:26] LABS: Estimated Average Glucose 105 mg/dl; Hemoglobin A1C 5.3 % (4.5-5.6)
[2021-12-06] MEDS: ASPIRIN 81 MG ECTAB PO SCH (08:13)
[2021-12-06] MEDS: CLOPIDOGREL BISULFATE 75 MG TAB PO SCH (08:14)
[2021-12-06] MEDS: METOPROLOL TARTRATE 25 MG TAB PO SCH (08:16)
[2021-12-06] MEDS: ROSUVASTATIN CALCIUM 20 MG TAB PO SCH (08:17)
[2021-12-06] MEDS: PANTOprazole 40 MG TAB PO SCH (08:17)
[2021-12-06] MEDS: FLUTICASONE/VILANTEROL 200/25MCG 14 PUFFS/INHALER INH SCH (08:18)
[2021-12-06] MEDS ORDERED: ASPIRIN 81 MG ECTAB PO SCH (09:00)
[2021-12-06] MEDS: FEXOFENADINE HCL 180 MG TAB PO SCH (09:46)
[2021-12-06] MEDS: ESCITALOPRAM OXALATE 20 MG TAB PO SCH (09:46)
[2021-12-06] MEDS: LOSARTAN POTASSIUM 25 MG TAB PO SCH (09:46)
[2021-12-06] MEDS ORDERED: POTASSIUM CHLORIDE CRTAB 20 MEQ TABCR PO STA (10:46)
--- NOTE | 2021-12-06 13:01 | Hospitalist Progress Note ---
Date of Service December 06, 2021 Assessment & Plan (1) Non-ST elevation (NSTEMI) myocardial infarction: Plan: Presented with chest pain that woke her from sleep, relieved with nitroglycerin, nonspecific ECG changes in anterior leads. With elevated troponin in the 300s and francisco javier to [address] angiogram chest negative for PE With risk factors of hypertension, hyperlipidemia, strong family history Taken urgently for cardiac catheterization after being started on heparin drip- showed no significant CAD except possibly on review some severe disease in a t iny OM branch that is not amenable to treatment Greatly appreciate cardiology consultation Echocardiogram without wall motion abnormalities, with preserved EF, moderate LVH Trop still has not quite peaked but is leveling off in the upper 7000s--> trend till peaks Still with some faint twinges of pain today and a few short runs of VT not unexpected in first 48 hrs post PA Lipid panel and A1C good -cont DAPT with aspirin and Plavix -Continue heparin drip x 1 more day -Nitroglycerin as needed -increase metoprolol to 50 Mg p.o. twice daily -Increased home rosuvastatin to high intensity dose at 20 mg daily -Continue losartan 25 mg daily -replete K+ to goal 4.0-will give 40 meq po KCl; Mag at goal >2.0 -Follow CBC, BMP, magnesium in the morning -continue to monitor on tele -[employer] diet encouraged (2) Hypokalemia: Plan: Low at 3.1 on arrival now improved but not optimal replace Follow BMP and magnesium in the morning (3) Back pain: Plan: MSK from lying in bed add on flexeril prn, heating pad melatonin for sleep (4) Hypertension: Plan: Blood pressures are controlled Hold home HCTZ Continue home losartan and increase metoprolol as above to 50 Mg p.o. twice daily (5) Anxiety: Plan: Stable Continue Lexapro (6) Hypercholesteremia: Plan: Increasing high intensity statin as above lipid panel good (7) Asthma: Plan: No acute issues Continue home bronchodilators, Singulair, maintenance ICS/LABA Continue home fexofenadine and Flonase (8) Sleep apnea: Plan: Continue CPAP at bedtime at 9 cm (9) CAD (coronary artery disease), [place] coronary artery: Plan: as above Plan DVT prophylaxis-DAPT, heparin drip Disposition-continued stay PCU, possible dc to home tomorrow if improved Full code as discussed with patient. She would name her mom as her POA Admission and Anticipated Discharge Date Admission Date: December 05, 2021 Subjective Feeling better, had trouble sleeping last night due to anxiety and also with mid back pain from lying in the bed. Some occasional twinges of chest pain but nothing like yesterday. No other concerns. Discussed her care with Cardiology Tele with NSR, normal rates, 2 runs of VT, one 11 beat and one 26 beats Review of Systems Review of Systems: All systems reviewed & are unremarkable except as noted in HPI & below Physical Exam Constitutional: WD/WN, vitals as above Eyes: + anicteric sclerae Neck: trachea midline, no thyromegaly Respiratory: normal respiratory effort, lungs clear to auscultation Cardiovascular: RRR, no murmur, no edema Chest (Breasts): Chest: normal inspection of chest Gastrointestinal (Abdomen): normal bowel sounds, soft, nontender, no hepatosplenomegaly Musculoskeletal: Extremities: extremities normal to inspection; no cyanosis and no clubbing Skin: no rashes, warm and dry Neurologic: moves all extremities and awake; no focal motor deficits Psychiatric: A+Ox3, euthymic affect Lymphatic: no lymphedema Results & Data Results & Data ([facility]) Vital Signs (Past 12 Hours) Vital Signs Temp Pulse Resp BP Pulse Ox O2 Del Method 12/06/21 12:12 36.6 C 74 20 130/86 95 Room Air 12/06/21 09:05 37.4 C 75 16 146/75 H 95 Room Air 12/06/21 08:00 37.2 C 75 16 145/72 H 95 Room Air 12/06/21 03:53 36.7 C 76 18 125/75 94 Room Air Laboratory Results 12/06/21 03:49 12/06/21 03:49 PG Care Time/CCT Total # of Minutes Spent Total Time Spent with Patient: Total time spent is greater than 50% in coordination of care (as documented) at patient's floor/unit and/or counseling patient: Coding Level of Care Code 93357 Subseq Hosp Care Lvl 3 Diagnoses Non-ST elevation (NSTEMI) myocardial infarction I21.4 Hypokalemia E87.6 Back pain M54.9 Hypertension I10 Anxiety F41.9 Hypercholesteremia E78.00 Asthma J45.909 Sleep apnea G47.30 CAD (coronary artery disease), [place] coronary artery I25.10
[2021-12-06] MEDS ORDERED: CYCLOBENZAPRINE HCL 5 MG TAB PO PRN (13:11)
[2021-12-06] MEDS ORDERED: MELATONIN 3 MG TAB PO PRN (13:11)
--- NOTE | 2021-12-06 13:35 | Cardiology Progress Note ---
Date of Service December 06, 2021 Assessment & Plan (1) Non-ST elevation (NSTEMI) myocardial infarction: (2) Hypercholesteremia: (3) Hypertension: Plan ASSESSMENT/PLAN: 1. Acute NSTEMI: Likely severe CAD of very small OM branch which is too small for intervention. Chest discomfort has significantly improved with only brief episodes intermittently at this point. Increase metoprolol to 50 mg twice daily. Continue aspirin 81 mg daily. Continue Plavix 75 mg daily for 1 year fo r aggressive medical therapy. High-intensity statin therapy. Continue ARB. Continue heparin drip. Cardiac rehab. 2. CAD: Appeared to have very small OM branch vessel CAD but otherwise no significant CAD. Medical therapy as above. Risk factor modification. Mediterranean diet. 3. Nonsustained ventricular tachycardia: We discussed the diagnosis. No obvious symptoms. Titrate beta-danial. Ventricular tachycardia should improve and is not unexpected within first 48 hours of [place]. Normal LV systolic function. 4. Hypertension: Blood pressure has been mostly normotensive. Continue med ications as noted above. 5. Dyslipidemia: High-intensity statin therapy. Mediterranean diet. 6. Disposition: If continues to do well and no significant ventricular tachycardia, can be discharged home tomorrow after 48 hours from [place] onset. Cardiology appointment has been scheduled for early next week at which point cardiac rehab can be arranged. Patient care discussed with Dr. Chaudhry of the primary hospitalist service. Dr. Veras will be covering tomorrow for any questions or concerns. Admission and Anticipated Discharge Date Admission Date: December 05, 2021 Subjective She feels better today. Has intermittent chest pain for 10-20 seconds that occurs at any time randomly, but much better over all. She denies shortness of breath, edema, bleeding, palpitations, syncope or near syncope. She has ambulated in the hallway. She has a "knot" in her back from laying in bed. She was alone in her hospital room. Physical Exam Physical Exam: Gen.: No acute distress. Alert and oriented. HEENT: Anicteric sclera. Neck: No JVD. Cardiac: No ventricular heave. Regular. Normal S1-S2. No murmurs, rubs, or gallops. Pulmonary: Clear to auscultation bilaterally without wheezes, rales, or rhonchi. Abdomen: Soft, nontender, nondistended, with normoactive bowel sounds. No bruits noted. Extremities: 2+ radial pulses bilaterally. Right radial cath site is clean, dry and intact without erythema or discharge. 2+ posterior tibialis pulses bilaterally. No edema or cyanosis. Psychiatric: Affect appears appropriate. Results & Data ([facility]) Vital Signs (Past 12 Hours) Vital Signs Temp Pulse Resp BP Pulse Ox O2 Del Method 12/06/21 12:12 36.6 C 74 20 130/86 95 Room Air 12/06/21 09:05 37.4 C 75 16 146/75 H 95 Room Air 12/06/21 08:00 37.2 C 75 16 145/72 H 95 Room Air 12/06/21 03:53 36.7 C 76 18 125/75 94 Room Air Intake & Output 12/04/21 12/05/21 12/06/21 12/07/21 06:59 06:59 06:59 06:59 Intake Total 1555.05 / 1555.05 211.50 / 211.50 Balance 1555.05 / 1555.05 211.50 / 211.50 Weight 205 lb 11.06 oz Laboratory Results Laboratory Results - last 24 hr 12/05/21 12/05/21 12/05/21 15:50 15:50 15:51 WBC RBC Hgb Hct MCV MCH MCHC RDW Std Deviation RDW Coeff of Napoleon Plt Count MPV Immature Gran % (Auto) Neut % (Auto) Lymph % (Auto) Teller % (Auto) Eos % (Auto) Baso % (Auto) Neut # (Auto) Lymph # (Auto) Teller # (Auto) Eos # (Auto) Baso # (Auto) Immature Gran # (Auto) ESR 12 APTT 30.2 PTT Ratio 1.1 Sodium Potassium Chloride Carbon Dioxide Anion Gap BUN Creatinine Est Cr Clr Drug Dosing Est GFR ( Amer) Est GFR (Non-Af Amer) BUN/Creatinine Ratio Glucose Estimat Average Glucose Hemoglobin A1c Calcium Magnesium Troponin I High Sens 5137.7 H* D C-Reactive Protein < 0.50 Triglycerides Cholesterol LDL Cholesterol, Calc VLDL Cholesterol, Calc HDL Cholesterol Cholesterol/HDL Ratio Adenovirus (PCR) B. pertussis DNA (PCR) B.parapertussis DNA PCR C. pneumoniae DNA (PCR) Coronavirus OC43 (PCR) Coronavirus HKU1 (PCR) Coronavirus 229E (PCR) SARS-CoV-2 (PCR) Coronavirus NL63 (PCR) Human Metapneumovir PCR Influenza Type A (PCR) Influenza Type B (PCR) M. pneumoniae (PCR) Parainfluenza 1 (PCR) Parainfluenza 2 (PCR) Parainfluenza 3 (PCR) Parainfluenza 4 (PCR) RSV (PCR) Entero/Rhino (PCR) 12/05/21 12/05/21 12/06/21 20:30 21:47 03:49 WBC 7.44 RBC 4.28 Hgb 12.7 Hct 37.9 MCV 88.6 MCH 29.7 MCHC 33.5 RDW Std Deviation 44.4 RDW Coeff of Napoleon 13.8 Plt Count 262 MPV 8.2 L Immature Gran % (Auto) 0.3 Neut % (Auto) 60.9 Lymph % (Auto) 27.7 Teller % (Auto) 8.7 Eos % (Auto) 2.0 Baso % (Auto) 0.4 Neut # (Auto) 4.53 Lymph # (Auto) 2.06 Teller # (Auto) 0.65 Eos # (Auto) 0.15 Baso # (Auto) 0.03 Immature Gran # (Auto) 0.02 ESR APTT PTT Ratio Sodium Potassium Chloride Carbon Dioxide Anion Gap BUN Creatinine Est Cr Clr Drug Dosing Est GFR ( Amer) Est GFR (Non-Af Amer) BUN/Creatinine Ratio Glucose Estimat Average Glucose Hemoglobin A1c Calcium Magnesium Troponin I High Sens 7747.6 H* D C-Reactive Protein Triglycerides Cholesterol LDL Cholesterol, Calc VLDL Cholesterol, Calc HDL Cholesterol Cholesterol/HDL Ratio Adenovirus (PCR) Not Detected B. pertussis DNA (PCR) Not Detected B.parapertussis DNA PCR Not Detected C. pneumoniae DNA (PCR) Not Detected Coronavirus OC43 (PCR) Not Detected Coronavirus HKU1 (PCR) Not Detected Coronavirus 229E (PCR) Not Detected SARS-CoV-2 (PCR) Not Detected Coronavirus NL63 (PCR) Not Detected Human Metapneumovir PCR Not Detected Influenza Type A (PCR) Not Detected Influenza Type B (PCR) Not Detected M. pneumoniae (PCR) Not Detected Parainfluenza 1 (PCR) Not Detected Parainfluenza 2 (PCR) Not Detected Parainfluenza 3 (PCR) Not Detected Parainfluenza 4 (PCR) Not Detected RSV (PCR) Not Detected Entero/Rhino (PCR) Not Detected 12/06/21 12/06/21 12/06/21 03:49 03:49 03:49 WBC RBC Hgb Hct MCV MCH MCHC RDW Std Deviation RDW Coeff of [place] Plt Count MPV Immature Gran % (Auto) Neut % (Auto) Lymph % (Auto) Teller % (Auto) Eos % (Auto) Baso % (Auto) Neut # (Auto) Lymph # (Auto) Teller # (Auto) Eos # (Auto) Baso # (Auto) Immature Gran # (Auto) ESR APTT 63.5 H* PTT Ratio 2.3 Sodium 138 Potassium 3.7 Chloride 107 Carbon Dioxide 25 Anion Gap 6 BUN 13 Creatinine 0.91 Est Cr Clr Drug Dosing 87.6 Est GFR ( Amer) 85.9 Est GFR (Non-Af Amer) 74.1 BUN/Creatinine Ratio 14.3 Glucose 99 Estimat Average Glucose 105 Hemoglobin A1c 5.3 Calcium 9.2 Magnesium 2.0 Troponin I High Sens C-Reactive Protein Triglycerides 95 Cholesterol 122 LDL Cholesterol, Calc 64 VLDL Cholesterol, Calc 19 HDL Cholesterol 39 Cholesterol/HDL Ratio 3.1 Adenovirus (PCR) B. pertussis DNA (PCR) B.parapertussis DNA PCR C. pneumoniae DNA (PCR) Coronavirus OC43 (PCR) Coronavirus HKU1 (PCR) Coronavirus 229E (PCR) SARS-CoV-2 (PCR) Coronavirus NL63 (PCR) Human Metapneumovir PCR Influenza Type A (PCR) Influenza Type B (PCR) M. pneumoniae (PCR) Parainfluenza 1 (PCR) Parainfluenza 2 (PCR) Parainfluenza 3 (PCR) Parainfluenza 4 (PCR) RSV (PCR) Entero/Rhino (PCR) 12/06/21 08:33 WBC RBC Hgb Hct MCV MCH MCHC RDW Std Deviation RDW Coeff of Napoleon Plt Count MPV Immature Gran % (Auto) Neut % (Auto) Lymph % (Auto) Teller % (Auto) Eos % (Auto) Baso % (Auto) Neut # (Auto) Lymph # (Auto) Teller # (Auto) Eos # (Auto) Baso # (Auto) Immature Gran # (Auto) ESR APTT PTT Ratio Sodium Potassium Chloride Carbon Dioxide Anion Gap BUN Creatinine Est Cr Clr Drug Dosing Est GFR ( Amer) Est GFR (Non-Af Amer) BUN/Creatinine Ratio Glucose Estimat Average Glucose Hemoglobin A1c Calcium Magnesium Troponin I High Sens 7847.5 H* C-Reactive Protein Triglycerides Cholesterol LDL Cholesterol, Calc VLDL Cholesterol, Calc HDL Cholesterol Cholesterol/HDL Ratio Adenovirus (PCR) B. pertussis DNA (PCR) B.parapertussis DNA PCR C. pneumoniae DNA (PCR) Coronavirus OC43 (PCR) Coronavirus HKU1 (PCR) Coronavirus 229E (PCR) SARS-CoV-2 (PCR) Coronavirus NL63 (PCR) Human Metapneumovir PCR Influenza Type A (PCR) Influenza Type B (PCR) M. pneumoniae (PCR) Parainfluenza 1 (PCR) Parainfluenza 2 (PCR) Parainfluenza 3 (PCR) Parainfluenza 4 (PCR) RSV (PCR) Entero/Rhino (PCR) Diagnostic Findings Telemetry personally reviewed: Nonsustained ventricular tachycardia noted up to 26 beats in duration. Otherwise sinus rhythm. ECG personally reviewed 12/06/2021 at 5:33 a.m.: Sinus rhythm 72 beats per minute. Nonspecific T-wave abnormality Medications Administered Current Inpatient Medications Acetaminophen (Acetaminophen 325 Mg Tab) 650 mg PO Q4H PRN PRN Reason: Pain or Fever Stop: 01/04/22 14:02 Last Admin: 12/05/21 20:22 Dose: 650 mg Albuterol (Albuterol Hfa 8 Gm Inhaler) 2 puffs INH Q4H PRN PRN Reason: Shortness Of Breath Stop: 01/04/22 14:02 Albuterol (Albuterol 0.083% Nebu Soln 3 Ml Vial) 2.5 mg INH Q4H PRN; Protocol PRN Reason: wheezing Stop: 01/04/22 14:02 Aspirin (Aspirin 81 Mg Ectab) 81 mg PO [facility] Stop: 01/05/22 08:59 Last Admin: 12/06/21 08:13 Dose: 81 mg Clopidogrel Bisulfate (Clopidogrel Bisulfate 75 Mg Tab) [facility] [place] Stop: 01/05/22 08:59 Last Admin: 12/06/21 08:14 Dose: 75 mg Cyclobenzaprine HCl (Cyclobenzaprine Hcl 5 Mg Tab) 5 mg PO TID PRN PRN Reason: muscle spasm Stop: 01/05/22 13:59 Escitalopram Oxalate (Escitalopram Oxalate 20 Mg Tab) 20 mg PO DAILY [facility] Stop: 01/05/22 08:59 Last Admin: 12/06/21 09:46 Dose: 20 mg Fexofenadine HCl (Fexofenadine Hcl 180 Mg Tab) 180 mg PO QAM [facility] Stop: 01/05/22 08:59 Last Admin: 12/06/21 09:46 Dose: 180 mg Fluticasone Propionate (Fluticasone Propionate Na Spr 16 Gm Btl) 2 sprays JAYLA QAM PRN PRN Reason: ALLERGIES Stop: 01/04/22 14:02 Fluticasone/Vilanterol (Fluticasone/Vilanterol 200/25mcg 14 Puffs/Inhaler) 1 puffs INH DAILY [facility] Stop: 01/04/22 15:59 Last Admin: 12/06/21 08:18 Dose: 1 puffs Heparin Sodium/Dextrose (Heparin Sodium/Dextrose) 25,000 units in 500 mls @ 27 mls/hr IV .[id number] [facility]; Protocol Stop: 01/04/22 18:59 Last Admin: 12/06/21 13:36 Dose: 1,350 units/hr, 27 mls/hr Losartan Potassium (Losartan Potassium 25 Mg Tab) 25 mg PO DAILY [facility] Stop: 01/05/22 08:59 Last Admin: 12/06/21 09:46 Dose: 25 mg Melatonin (Melatonin 3 Mg Tab) 3 mg PO HS PRN PRN Reason: Sleep Stop: 01/05/22 13:10 Metoprolol Tartrate (Metoprolol Tartrate 50 Mg Tab) 50 mg PO BID [facility] Stop: 01/05/22 20:59 Montelukast Sodium (Montelukast Sodium 10 Mg Tablet) 10 mg PO HS [facility] Stop: 01/04/22 20:59 Last Admin: 12/05/21 22:02 Dose: 10 mg Nitroglycerin (Nitroglycerin Sl 0.4 Mg/Tab Tab) 0.4 mg SL UD PRN PRN Reason: Chest Pain Stop: 01/04/22 14:02 Ondansetron HCl (Ondansetron Inj 2 Mg/Ml 2 Ml Vial) 4 mg IV Q6H PRN PRN Reason: Nausea Stop: 01/04/22 14:02 Pantoprazole Sodium (Pantoprazole 40 Mg Tab) 40 mg PO QAM [facility] Stop: 01/04/22 14:29 Last Admin: 12/06/21 08:17 Dose: 40 mg Rosuvastatin Calcium (Rosuvastatin Calcium 20 Mg Tab) 20 mg PO DAILY [facility] Stop: 01/05/22 08:59 Last Admin: 12/06/21 08:17 Dose: 20 mg PG Care Time/CCT Total # of Minutes Spent Total Time Spent with Patient: Total time spent is greater than 50% in coordination of care (as documented) at patient's floor/unit and/or counseling patient: Coding Level of Care Code 82505 Subseq Hosp Care Lvl 3 Diagnoses Non-ST elevation (NSTEMI) myocardial infarction I21.4 Hypercholesteremia E78.00 Hypertension I10
[2021-12-06] MEDS: HEPARIN SODIUM/DEXTROSE 25,000 UNITS/500 ML BAG IV SCH (13:36)
[2021-12-06] MEDS: METOPROLOL TARTRATE 50 MG TAB PO SCH (20:57)
[2021-12-06] MEDS: MONTELUKAST SODIUM 10 MG TABLET PO SCH (20:58)
--- NOTE | 2021-12-06 22:22 | Electrocardiogram Report ---
Test Reason : Blood Pressure : / mmHG Vent. Rate : 076 BPM Atrial Rate : 076 BPM P-R Int : 152 ms QRS Dur : 084 ms QT Int : 378 ms P-R-T Axes : 016 027 046 degrees QTc Int : 425 ms Normal sinus rhythm Cannot rule out Anterior infarct , age undetermined Nonspecific T wave abnormality Abnormal ECG No previous ECGs available Confirmed by Chon Cruz ([id number]) on 12/06/2021 10:22:20 PM Referred By: REFERRED SELF Confirmed By:Chon Cruz
--- NOTE | 2021-12-06 22:30 | Electrocardiogram Report ---
Test Reason : Blood Pressure : / mmHG Vent. Rate : 071 BPM Atrial Rate : 071 BPM P-R Int : 150 ms QRS Dur : 080 ms QT Int : 410 ms P-R-T Axes : 006 016 020 degrees QTc Int : 445 ms Normal sinus rhythm Nonspecific T wave abnormality When compared with ECG of 05-DEC-2021 07:25, No significant change was found Confirmed by Chon Cruz ([id number]) on 12/06/2021 10:29:59 PM Referred By: REFERRED SELF Confirmed By:Chon Cruz
--- NOTE | 2021-12-07 06:17 | Electrocardiogram Report ---
Test Reason : Blood Pressure : / mmHG Vent. Rate : 072 BPM Atrial Rate : 072 BPM P-R Int : 160 ms QRS Dur : 082 ms QT Int : 412 ms P-R-T Axes : 009 027 042 degrees QTc Int : 451 ms Normal sinus rhythm Nonspecific T wave abnormality When compared with ECG of 05-DEC-2021 10:25, No significant change was found Confirmed by Chon Cruz ([id number]) on 12/07/2021 6:16:56 AM Referred By: REFERRED SELF Confirmed By:Chon Cruz
[2021-12-07] MEDS: LOSARTAN POTASSIUM 25 MG TAB PO SCH (07:34)
[2021-12-07] MEDS: CLOPIDOGREL BISULFATE 75 MG TAB PO SCH (07:34)
[2021-12-07] MEDS: ASPIRIN 81 MG ECTAB PO SCH (07:35)
[2021-12-07] MEDS: FEXOFENADINE HCL 180 MG TAB PO SCH (07:35)
[2021-12-07] MEDS: ESCITALOPRAM OXALATE 20 MG TAB PO SCH (07:35)
[2021-12-07] MEDS: PANTOprazole 40 MG TAB PO SCH (07:35)
[2021-12-07] MEDS: ROSUVASTATIN CALCIUM 20 MG TAB PO SCH (07:35)
[2021-12-07] MEDS: METOPROLOL TARTRATE 50 MG TAB PO SCH (07:36)
[2021-12-07] MEDS: FLUTICASONE/VILANTEROL 200/25MCG 14 PUFFS/INHALER INH SCH (07:36)
[2021-12-07 07:55] LABS: Basophils # (auto) 0.05 K/uL (0-0.2); Basophils % (auto) 0.7 %; Eosinophils # (auto) 0.14 K/uL (0-0.50); Eosinophils % (auto) 1.9 %; Hematocrit (blood only) 39.9 % (34.1-44.9); Hemoglobin 13.2 g/dl (12.0-16.0); Immature Granulocytes # (auto) 0.02 K/uL (0.00-0.02); Immature Granulocytes % (auto) 0.3 %; Lymphocytes # (auto) 2.31 K/uL (1.2-3.4); Lymphocytes % (auto) 30.9 %; Mean Corpuscular Hemoglobin 29.4 pg (25.0-34.0); Mean Corpuscular Hgb Conc 33.1 g/dL (32.0-36.0); Mean Corpuscular Volume 88.9 fL (80.0-100.0); Mean Platelet Volume 8.4 fL (9.4-12.3); Monocytes # (auto) 0.77 K/uL (0.24-0.82); Monocytes % (auto) 10.3 %; Neutrophils # (auto) 4.19 K/uL (1.4-6.5); Neutrophils % (auto) 55.9 %; Platelet Count 284 K/uL (130-400); RDW Coefficient of Variation 13.8 % (11.5-14.5); RDW Standard Deviation 44.8 fL (36.4-46.3); Red Blood Count 4.49 M/uL (3.93-5.22); White Blood Count 7.48 K/ul (4.8-10.8)
[2021-12-07 08:23] LABS: BUN Creatinine Ratio 16.9 (10-20); Calcium 9.6 mg/dl (8.5-10.1); Creatinine Clr Calc Pharmacy 96.1 ml/min; Est GFR (Non-African American) 82.8 ml/min; Magnesium 2.2 mg/dl (1.7-2.4); Potassium 4.2 mmol/L (3.5-5.1)
[2021-12-07 08:24] LABS: Partial Thromboplastin Ratio 2.4
[2021-12-07] MEDS: ACETAMINOPHEN 325 MG TAB PO PRN (09:28)
[2021-12-07 09:59] LABS: Partial Thromboplastin Time 66.4 Seconds (21.0-31.0)
[2021-12-07] MEDS: HEPARIN SODIUM/DEXTROSE 25,000 UNITS/500 ML BAG IV SCH (10:03)
--- NOTE | 2021-12-07 12:04 | Electrocardiogram Report ---
Test Reason : Blood Pressure : / mmHG Vent. Rate : 066 BPM Atrial Rate : 066 BPM P-R Int : 154 ms QRS Dur : 080 ms QT Int : 392 ms P-R-T Axes : 020 032 014 degrees QTc Int : 410 ms Normal sinus rhythm Low voltage QRS Nonspecific T wave abnormality Abnormal ECG When compared with ECG of 06-DEC-2021 05:33, Nonspecific T wave abnormality now evident in Lateral leads Confirmed by Johnie Veras ([id number]) on 12/07/2021 12:04:22 PM Referred By: REFERRED SELF Confirmed By:Johnie Veras
--- NOTE | 2021-12-07 12:50 | Discharge Summary ---
Date of Service December 07, 2021 Admission HPI Per Admitting Provider This patient is a 51-year-old female with history of asthma, allergies, HTN, hyperlipidemia, anxiety disorder, who presents to the ER with acute onset of substernal chest pain that came on at rest that woke her from sleep early this morning at 3 AM. She was able to fall back asleep and it woke her up again at 6 AM. She had associated left arm heaviness and tingling. She tried taking Tums without any relief. She came to the ER and received nitroglycerin which did improve her pain. When I saw her in the ER, she was having a 2/10 in severity pain. She did have some diaphoresis prior to arrival but thought that that was secondary to menopausal hot flashes. She has had some occasional chest pains off and on for last year and was seen at an urgent care at 1 point and had a reportedly normal EKG. She is not very active due to arthritis in her left knee. No recent headaches, cold symptoms, shortness of breath, cough. Has had a sore throat recently. I discussed her care with steel plate caulker at the bedside and plan will be for urgent cardiac catheterization as her troponin was elevated on arrival in the 300s. ECG showed some T wave flattening in the anterior leads Shortly after admission and cardiac catheterization was reportedly without need for acute intervention, CT angiogram of the chest was ordered which was negative for PE. There was initial thought given to her having myopericarditis and colchicine and aspirin were initiated, however after her third troponin francisco javier even further to 5000, and on further review of the cardiac catheterization images as per the steel plate caulker, decision was made to continue to treat for NSTEMI. Heparin drip had already been initiated in the morning and was restarted after her radial wrist band was removed Principal Diagnosis NSTEMI Discharge Exam Constitutional WD/WN, vitals as above Eyes + anicteric sclerae Neck trachea midline, no thyromegaly Respiratory normal respiratory effort, lungs clear to auscultation Cardiovascular RRR, no murmur, no edema Chest (Breasts) Chest: normal inspection of chest Gastrointestinal (Abdomen) normal bowel sounds, soft, nontender, no hepatosplenomegaly Musculoskeletal Extremities: extremities normal to inspection; no cyanosis and no clubbing Skin no rashes, warm and dry Neurologic moves all extremities and awake; no focal motor deficits Psychiatric A+Ox3, euthymic affect Lymphatic no lymphedema Discharge Data Allergies Allergy/AdvReac Type Severity Reaction Status Date / Time No Known Drug Allergies Allergy Verified 09/19/21 16:21 Consultations 12/05/21 09:14 Consult Cardiology Stat ED Decision to Admit Stat Procedures Performed Operation Date: 12/05/21 11:00 Actual Procedures p Cath, Left with Cors and Vent - Chon Cruz MD s Cineradiography w/Routine Exam - Johnnie Humphrey MD Ordered Studies 12/05/21 10:22 CL Cath Imgs for PACS use only Stat 12/05/21 11:29 CT angio chest PE protocol Stat ECHO Hospital Course (1) Non-ST elevation (NSTEMI) myocardial infarction: Presented with chest pain that woke her from sleep, relieved with nitroglycerin, nonspecific ECG changes in anterior leads. With elevated troponin in the 300s and francisco javier to [address] angiogram chest negative for PE With risk factors of hypertension, hyperlipidemia, strong family history Taken urgently for cardiac catheterization after being started on heparin drip- showed no significant CAD except possibly on review some severe disease in a tiny OM branch that is not amenable to treatment Greatly appreciate cardiology consultation Echocardiogram without wall motion abnormalities, with preserved EF, moderate LVH Trop peaked at 8100 Had a few short runs of VT not unexpected in first 48 hrs post ME but none since AM of 12/06 No further chest pains COmpleted 48 hrs of heparin gtt Lipid panel and A1C good -cont DAPT with aspirin and Plavix -Nitroglycerin as needed -started metoprolol to 50 Mg p.o. twice daily -Increased home rosuvastatin to high intensity dose at 20 mg daily -Continue losartan 25 mg daily -repleted K+ and would dc HCTZ permanently -Mediterranean diet encouraged -will need cardiac rehab -dc to home and has close f/u with Cardiology this Thursday -radial wrist precautions given (2) Hypokalemia: Low at 3.1 on arrival replaced and improved likely 2/2 HCTZ which will now be stopped (3) Back pain: MSK from lying in bed now resolved w/ heating pad (4) Hypertension: Blood pressures are controlled dc home HCTZ Continue home losartan and added metoprolol 50 Mg p.o. twice daily (5) Anxiety: Stable Continue Lexapro (6) Hypercholesteremia: Increasing high intensity statin as above lipid panel good (7) Asthma: No acute issues Continue home bronchodilators, Singulair, maintenance ICS/LABA Continue home fexofenadine and Flonase (8) Sleep apnea: Continue CPAP at bedtime at 9 cm (9) CAD (coronary artery disease), [place] coronary artery: as above Plan DVT prophylaxis-DAPT, heparin drip Disposition-dc to home today Discussed with Dr. Veras of Cardiology who agrees with discharge to home today Total Time Total Time Spent Total Time Spent (In Minutes): 35 min Discharge Plan Discharge Items Patient Disposition: Home - Self-Care Reason For Visit: NSTEMI Discharge Diagnosis: NSTEMI Condition on Discharge: Good Activity: As commented below Lifting: No more than 5 pounds Bathing: Keep incision dry Driving/Machine Use: Resume 1 day after discharge Non-emergency contact: Primary Care Provider and [employer] Call non-emergency contact if: you have any medication questions, your symptoms worsen and your pain is not controlled Follow-up/Referrals: Kavita Galo PA-C [Physician [employer]] - (Follow up within 1-2 weeks) Chon Cruz MD [Physician] - 12/09/21 8:45 am Matt Bradley MD [Primary Care Provider] - Diet: Heart Healthy Addtl Attending Provider Instructions: You were admitted for a ME and treated medically. The lesion causing the heart attack was not amenable to a stent. Fortunately, your heart function remains normal on ECHO. You were started on aspirin, Plavix, metoprolol, and had your Crestor dose increased. Your omeprazole interacts with your Plavix so this will be changed to Protonix instead for your acid reflux. You can take nitroglycerin as needed if you have recurrence of chest pain and then call your [employer] or return to the hospital. Home Care: * Take your medications exactly as directed. Don't skip doses. * Remember that recovery after a heart attack takes time. Plan to rest for at lease 4-8 weeks while you recover. Then return to normal activity when your doctor says it's okay. * Ask your doctor about joining a heart rehabilitation program. * Tell your doctor if you are feeling depressed. Feelings of sadness are common after a heart attack, but it is important that you speak to someone if you are feeling overwhelmed by these feelings. * If you are having chest pain, call 911 for an ambulance. Do NOT drive yourself to the hospital. * Ask your family members to learn CPR. * Learn to take your own blood pressure and pulse. Keep a record of your results. Ask your doctor when you should seek emergency medical attention. He or she will tell you which blood pressure reading is dangerous. Lifestyle Changes: * Maintain a healthy weight. Get help to lose any extra pounds. * Cut back on salt. * Limit canned, dried, packaged, and fast foods. * Don't add salt to your food. * Season foods with herbs instead of salt when you cook. * Break the smoking habit. Enroll in a stop-smoking program to improve your chances of success. * Limit fatty foods. * Ask your doctor about having your lipid levels checked regularly. * Build up your activity according to your doctor's recommendation. * Ask your doctor when it's okay to resume sexual activity. * Tell your doctor about any erectile dysfunction (ED) medication you are taking. Some ED medications are not safe if you take certain heart medications. * Try to manage stress. Follow Up: It is important for you to keep your follow up appointments with your medical provider. ACTIVITY RECOMMENDATIONS: Excess manipulation of the wrist should be avoided for the next 24-48 hours. * No lifting over 2 pounds (approximately a 1/2 gallon of milk) with the utilized arm for 24 hours. * No strenuous activity such as bowling or tennis for 3 days. * Keep the site of the procedure covered with a bandage for 24 hours. *You may shower the day after the procedure. Do not take a tub bath or submerge the puncture site in water for the next 3 days. *Do not operate any motorized equipment for 3 days. SPECIAL CARE INSTRUCTIONS: The site may be slightly bruised and sore following your procedure. Should any of the following occur, contact the Dr. who performed your procedure. 1. Redness/inflammation, swelling, chills, or fever, or colored drainage at procedure site within 3-7 days after your procedure. 2. Coldness, discoloration, ongoing numbness, severe pain, or swelling. Expect mild tingling of hand and tenderness at the puncture site for up to three days. If this persists beyond three days, or other symptoms develop, notify the Dr. who performed your procedure. BLEEDING: If the procedure site on your wrist begins to bleed, do not panic 1. Place 1 or 2 fingers firmly just slightly above the insertion site to stop the bleeding. You may be able to feel your pulse as you hold pressure. 2. Lift your finger after 5 minutes to see if the bleeding has stopped. 3. Once the bleeding has stopped, gently wipe the wrist area clean with a bandage. * If the bleeding from your wrist does not stop after 10 minutes, or if there is a large amount of bleeding or spurting, call 911 (do not drive yourself to the hospital). SKIN IRRITATION: * You may experience some redness and/or swelling in the area where radiation was administered. If any skin irritation occurs, please contact your family physician. FOLLOW UP VISIT: Keep any scheduled doctor appointments. Pending Studies at Discharge: No Stand-Alone Forms: My [facility] [employer], Work/School Release Medications and DC Order Prescriptions: New metoprolol tartrate 50 mg Tablet 50 mg PO BID Qty: 60 0RF nitroglycerin [Nitrostat] 0.4 mg Tablet, Sublingual 0.4 mg sublingual UD PRN (Reason: chest pain) Qty: 1 0RF Rx Instructions: and can repeat q5 min x 3 doses, then call 911 rosuvastatin [Crestor] 20 mg Tablet 20 mg PO DAILY Qty: 30 0RF aspirin 81 mg Tablet,Delayed Release (Dr/Ec) 81 mg PO QAM Qty: 30 0RF clopidogrel 75 mg Tablet 75 mg PO QAM Qty: 30 0RF pantoprazole 40 mg Tablet,Delayed Release (Dr/Ec) 40 mg PO QAM Qty: 30 0RF Continued albuterol sulfate 90 mcg/actuation HFA aerosol inhaler 2 puff inhalation Q4H PRN (Reason: Shortness Of Breath) Qty: 18 3RF estradiol 0.01 % (0.1 mg/gram) cream 0.5 g vaginal 2XWK Qty: 42.5 2RF montelukast 10 mg tablet 10 mg PO HS Qty: 90 3RF escitalopram oxalate [Lexapro] 20 mg tablet 20 mg PO DAILY Qty: 90 3RF fluticasone propion-salmeterol [Wixela Inhub] 250-50 mcg/dose blister with device See Rx Instructions .ROUTE .COMPLEX Qty: 180 3RF Dose Instruction: USE 1 INHALATION ORALLY TWICE DAILY Rx Instructions: USE 1 INHALATION ORALLY TWICE DAILY losartan 25 mg tablet 25 mg PO DAILY Qty: 90 3RF calcium carbonate-vitamin D3 600 mg(1,500mg) -200 unit tablet 1 tab PO QAM multivitamin [Daily Multi-Vitamin] tablet 1 tab PO QAM cholecalciferol (vitamin D3) 5,000 unit capsule 5,000 units PO QAM fluticasone propionate 50 mcg/actuation spray,suspension 2 sprays intranasal QAM PRN (Reason: ALLERGIES) (DME) CPAP Machine Misc See Rx Instructions .MEDSUPPLY Qty: 1 0RF Rx Instructions: CPAP 9 cm water pressure with heated humidification, tubing, and supplies. KADEN: 99+ years. albuterol sulfate 2.5 mg /3 mL (0.083 %) solution for nebulization 2.5 mg inhalation Q4H PRN (Reason: wheezing) Qty: 90 3RF (DME) nebulizer accessories Misc See Rx Instructions .ROUTE .MEDSUPPLY Qty: 1 0RF Rx Instructions: As directed fexofenadine [Paz Allergy] 180 mg Tablet 180 mg PO QAM Discontinued rosuvastatin 5 mg tablet 5 mg PO DAILY Qty: 90 3RF hydrochlorothiazide 25 mg tablet 25 mg PO DAILY Qty: 90 3RF omeprazole 20 mg capsule,delayed release(DR/EC) 20 mg PO QAM Discharge Orders: Discharge Order (Routine); Ordered 12/07/21 Ordered By: Christine Chaudhry Admission Data Admit Date/Time: 12/05/21 10:31 Attending Provider: Christine Chaudhry Admit Provider: Christine Chaudhry Primary Care Provider: Matt Bradley Other Providers: Chon Cruz ; Christine Chaudhry Coding Level of Care Code D/C DAY MANAGEMENT >30 MINS Diagnoses Non-ST elevation (NSTEMI) myocardial infarction I21.4 Hypokalemia E87.6 Back pain M54.9 Hypertension I10 Anxiety F41.9 Hypercholesteremia E78.00 Asthma J45.909 Sleep apnea G47.30 CAD (coronary artery disease), [place] coronary artery I25.10
== END 2021-12-07 13:22 | disposition home or self-care (01) | DRG 282 ==
LOC: ED 07:20 → OR 10:30 → SUATTDRO 10:31 → 2S 10:31

== ENCOUNTER 2023-11-27 07:49 | Observation (INO) ==
--- NOTE | 2023-10-28 11:11 | PAT Medication Instructions ---
Medication Instructions Date of Service October 28, 2023 Home Medications Medication Instructions Recorded CPAP Machine #1 ea 07/03/20 nebulizer accessories #1 ea 08/17/20 nitroglycerin 0.4 mg sublingual 0.4 mg sublingual UD PRN chest 12/07/21 tablet (Nitrostat) pain #1 btl albuterol sulfate 2.5 mg/3 mL 2.5 mg (3 mL) inhalation Q4H PRN 12/17/22 (0.083 %) solution for nebulization wheezing #90 mL albuterol sulfate 90 mcg/actuation 2 puff inhalation Q4H PRN 12/17/22 aerosol inhaler Shortness Of Breath #18 grams metoprolol succinate 50 mg 50 mg PO QAM #90 tabs 12/17/22 tablet,extended release 24 hr pantoprazole 40 mg tablet,delayed 40 mg PO BID #180 tabs 12/17/22 release rosuvastatin 40 mg tablet 40 mg PO HS #90 tabs 12/17/22 meclizine 12.5 mg tablet 12.5 mg PO TID PRN dizziness #20 12/25/22 tabs montelukast 10 mg tablet 10 mg PO HS #90 tabs 01/19/23 escitalopram oxalate 20 mg tablet 20 mg PO QPM #90 tabs 02/25/23 (Lexapro) estradiol 0.01% (0.1 mg/gram) 0.5 g vaginal 2XWK #42.5 grams 10/01/23 vaginal cream calcium carbonate 600 mg-vitamin D3 5 mcg (200 unit) tablet 1 tab PO QAM cholecalciferol (vitamin D3) 125 mcg (5,000 unit) capsule 5,000 units PO QAM multivitamin (Daily Multi-Vitamin tablet) 1 tab PO QAM fluticasone propionate 50 mcg/actuation nasal spray,suspension 2 sprays intranasal QAM nitroglycerin 0.4 mg sublingual tablet (Nitrostat) 0.4 mg sublingual UD PRN albuterol sulfate 2.5 mg/3 mL (0.083 %) solution for nebulization 2.5 mg (3 mL) inhalation Q4H PRN albuterol sulfate 90 mcg/actuation aerosol inhaler 2 puff inhalation Q4H PRN metoprolol succinate 50 mg tablet,extended release 24 hr 50 mg PO QAM pantoprazole 40 mg tablet,delayed release 40 mg PO BID rosuvastatin 40 mg tablet 40 mg PO HS meclizine 12.5 mg tablet 12.5 mg PO TID PRN fexofenadine 180 mg tablet (Paz Allergy) 180 mg PO QAM montelukast 10 mg tablet 10 mg PO HS escitalopram oxalate 20 mg tablet (Lexapro) 20 mg PO QPM estradiol 0.01% (0.1 mg/gram) vaginal cream 0.5 g vaginal 2XWK clopidogrel 75 mg tablet 75 mg PO QAM fluticasone 250 mcg-salmeterol 50 mcg/dose blistr powdr for inhalation (Wixela Inhub) 1 inh inhalation BID Continue as directed nitroglycerin 0.4 mg sublingual tablet (Nitrostat) 0.4 mg sublingual UD PRN(if needed) ASK your prescriber and surgeon clopidogrel 75 mg tablet 75 mg PO QAM(in order for spinal or epidural anesthesia, clopidogrel needs to be stopped 7 days before surgery. Please check if okay with doctor that prescribes this to you) STOP taking 24 hours before surgery estradiol 0.01% (0.1 mg/gram) vaginal cream 0.5 g vaginal 2XWK DO NOT take the morning of surgery calcium carbonate 600 mg-vitamin D3 5 mcg (200 unit) tablet 1 tab PO QAM cholecalciferol (vitamin D3) 125 mcg (5,000 unit) capsule 5,000 units PO QAM multivitamin (Daily Multi-Vitamin tablet) 1 tab PO QAM fexofenadine 180 mg tablet (Paz Allergy) 180 mg PO QAM Take morning of surgery With a small sip of water, OTHERWISE NOTHING TO EAT OR DRINK AFTER MIDNIGHT: fluticasone propionate 50 mcg/actuation nasal spray,suspension 2 sprays intranasal QAM albuterol sulfate 2.5 mg/3 mL (0.083 %) solution for nebulization 2.5 mg (3 mL) inhalation Q4H PRN(if needed) albuterol sulfate 90 mcg/actuation aerosol inhaler 2 puff inhalation Q4H PRN(use if needed; please bring with you to hospital day of surgery if possible) metoprolol succinate 50 mg tablet,extended release 24 hr 50 mg PO QAM pantoprazole 40 mg tablet,delayed release 40 mg PO BID meclizine 12.5 mg tablet 12.5 mg PO TID PRN(if needed) fluticasone 250 mcg-salmeterol 50 mcg/dose blistr powdr for inhalation (Wixela Inhub) 1 inh inhalation BID Take evening before surgery albuterol sulfate 2.5 mg/3 mL (0.083 %) solution for nebulization 2.5 mg (3 mL) inhalation Q4H PRN(if needed) albuterol sulfate 90 mcg/actuation aerosol inhaler 2 puff inhalation Q4H PRN(if needed) pantoprazole 40 mg tablet,delayed release 40 mg PO BID rosuvastatin 40 mg tablet 40 mg PO HS meclizine 12.5 mg tablet 12.5 mg PO TID PRN(if needed) montelukast 10 mg tablet 10 mg PO HS escitalopram oxalate 20 mg tablet (Lexapro) 20 mg PO QPM fluticasone 250 mcg-salmeterol 50 mcg/dose blistr powdr for inhalation (Wixela Inhub) 1 inh inhalation BID Other Notes If you have any questions please call us at [phone] or [phone] or [phone] or [phone]
--- NOTE | 2023-11-04 09:23 | Anesthesiology Consultation ---
Date of Service November 04, 2023 Assessment & Plan (1) Encounter for pre-operative examination: Plan - patient reports upcoming appointments at [facility] cardio Dr. Evan Hoyos later this month and [place] neurology 11/06/23. - clopidogrel: patient states this was discontinued years ago by cardiology and then re-started by neurology after neurologic event 01/2023. Case discussed in detail with Dr. Lewis who agreed with contacting neurology for confirmation if patient can stop clopidogrel 7 days before surgery for neuraxial anesthesia and advised nothing additional will be needed from cardiology. - cardiology office visit 10/07/23 [place]: "...CAD s/p NSTEMI (Nov 2021): Probable severe CAD in very small caliber OM branch. Medical therapy recommended. No angina. Continue antiplatelet therapy. Neurology has replaced aspirin with Plavix following vertebral artery thrombosis in 2022. Continue beta-danial and high-intensity statin therapy. ARB discontinued in the past due to significant hypotension. Did not tolerate nitrate therapy...Strokelike symptoms and vertebral artery occlusion: Thrombosed vertebral artery reported on imaging and neurology note. Hypercoagulable workup was unremarkable per Hematology. Now on Plavix in place of aspirin as per neurology. She has been found to have a PFO and has been seen by Cardiology and Neurology at [facility]. Also now has loop recorder in place. Preop: No angina at >4 METS of activity. Acceptable risk to proceed with upcoming knee replacement from a cardiovascular standpoint. From a cardiac perspective, okay to hold Plavix for 5-7 days prior to surgery and resume once safe from a bleeding standpoint. Would also get Neurology recommendations regarding antiplatelet therapy, though, given history of vertebral artery occlusion...Follow-up in [address] Cruz. - neurology office visit 08/20/23 [facility]: "...possible TIA...02/16 CTH showed no hemorrhage, CTA head/neck showed a dominant right vertebral artery that is widely patent and a diminutive left vertebral artery that becomes very narrow in V3/V4 segment and read by radiology as having a thrombus, had MRI brain that showed no stroke...RIAN without bubble that showed possibly a PFO, was supposed to have a repeat TTE with bubble...ILR placed that has not shown afib...hypercoagulable blood work ordered and was negative...was walking and th en suddenly would veer to the left, happened several times over 2 days...head felt funny...since she was in the ER she has not had any recurrent events...has had vasovagal syncope when she is in a lot of pain...not completely sure if her event represents a TIA or stroke, is strange that she had a couple events over 2 days...don't see in any of the reports that her PFO is large or associated with an atrial septal aneurysm...ERIC classification of unlikely for the PFO being a cause of her symptoms. On the other hand the PFO closure is a safe and easy procedure so if she preferred to proceed then she could work with Dr. Hoyos for this. If she does have thrombosis of her diminutive left vertebral artery then this itself may be more likely to blame for her TIA like events than her PFO...will review those images when available...can follow up with her local neurologist..." - Outpatient joint assessment: Patient is currently scheduled for inpatient pathway. If re-evaluated and patient/surgeon requests outpatient pathway, patient is not recommended candidate for outpatient joint program from anesthesia standpoint. Chart Review Chart Review: Pending: Refer to Additional Notes / Consult section and Patient seen in Pre Admission Testing Teaching & Discussion Pre-Anesthesia Teaching/Discussion Notes: Instructed NPO after midnight before surgery, except medications with 15 cc of water. Medication instructions provided according to the PAT guidelines. History Surgery Operation Date: 11/27/23 07:00 Proposed Procedures p Right Total Knee Arthroplasty - Matt Blank, DO Height/Weight Height: 5 ft 7 in Weight: 95.6 kg Allergies Allergy/AdvReac Type Severity Reaction Status Date / Time No Known Drug Allergies Allergy Verified 10/22/23 07:40 Medications Home Medications Medication Instructions Recorded Confirmed Last Taken calcium carbonate 600 mg-vitamin 1 tab PO QAM 12/11/18 10/22/23 12/25/22 D3 5 mcg (200 unit) tablet cholecalciferol (vitamin D3) 125 5,000 units PO QAM 12/11/18 10/22/23 12/25/22 mcg (5,000 unit) capsule multivitamin (Daily Multi-Vitamin 1 tab PO QAM 12/11/18 10/22/23 12/25/22 tablet) fluticasone propionate 50 2 sprays intranasal QAM PRN 12/20/18 10/22/23 07/08/22 mcg/actuation nasal ALLERGIES spray,suspension CPAP Machine #1 ea 07/03/20 10/08/23 Unknown nebulizer accessories #1 ea 08/17/20 10/08/23 Unknown nitroglycerin 0.4 mg sublingual 0.4 mg sublingual UD PRN chest 12/07/21 10/22/23 Unknown tablet (Nitrostat) pain #1 btl albuterol sulfate 2.5 mg/3 mL 2.5 mg (3 mL) inhalation Q4H PRN 12/17/22 10/22/23 Unknown (0.083 %) solution for nebulization wheezing #90 mL albuterol sulfate 90 mcg/actuation 2 puff inhalation Q4H PRN 12/17/22 10/22/23 Unknown aerosol inhaler Shortness Of Breath #18 grams metoprolol succinate 50 mg 50 mg PO QAM #90 tabs 12/17/22 10/22/23 12/25/22 tablet,extended release 24 hr pantoprazole 40 mg tablet,delayed 40 mg PO BID #180 tabs 12/17/22 10/22/23 12/25/22 release rosuvastatin 40 mg tablet 40 mg PO HS #90 tabs 12/17/22 10/22/23 Unknown meclizine 12.5 mg tablet 12.5 mg PO TID PRN dizziness #20 12/25/22 10/22/23 Unknown tabs fexofenadine 180 mg tablet 180 mg PO QAM 12/30/22 10/22/23 Unknown (Paz Allergy) montelukast 10 mg tablet 10 mg PO HS #90 tabs 01/19/23 10/22/23 Unknown escitalopram oxalate 20 mg tablet 20 mg PO QPM #90 tabs 02/25/23 10/22/23 Unknown (Lexapro) estradiol 0.01% (0.1 mg/gram) 0.5 g vaginal 2XWK #42.5 grams 10/01/23 10/22/23 Unknown vaginal cream clopidogrel 75 mg tablet 75 mg PO QAM 10/22/23 10/22/23 Unknown fluticasone 250 mcg-salmeterol 50 1 inh inhalation BID 10/22/23 10/22/23 Unknown mcg/dose blistr powdr for inhalation (Jayxwally Inhub) Past Medical History Medical History (Updated 11/04/23 @ 10:07 by Makenna Arevalo PA-C) Anxiety Asthma well controlled with daily use of inhaler. hx of chronic cough (better with inhalers)last albuterol inhaler use 3 weeks ago CAD (coronary artery disease) Follows with [facility] Depression GERD (gastroesophageal reflux disease) controlled, stable per pt History of COVID-19 (11/2021) cold symptoms. resolved. History of non-ST elevation myocardial infarction (NSTEMI) 11/2021. Hyperlipidemia Hypertension controlled, stable per pt IBS (irritable bowel syndrome) Implantable loop recorder present (04/30/23) follows with [facility]iology Osteoarthritis PFO (patent foramen ovale) following with [facility]iology and [facility] (reports surgery is not recommended at this time) dx 04/30/23 S/P transesophageal echocardiogram (RIAN) (04/30/23) Sleep apnea cpap at night Vertebral artery occlusion patient dx 11/2022 at [facility]. 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 follows with [facility] Patient denies h/o seizures, heart failure, DM, or blood transfusions. Exercise / Class Metabolic Activity II 4-5 Yardwork/Stairs/Walk up hill (denies chest discomfort or shortness of breath with one flight of stairs) Past Family History Family History Father Sleep apnea Coronary heart disease Myocardial infarction Stroke syndrome Hx of CABG, Onset Age: 65 Hypertension Mother Hypothyroidism Aunt Coronary heart disease paternal Uncle Coronary heart disease paternal Other No family history of adverse response to anesthesia Denies family history of Ovarian cancer Prostate cancer Crohn's disease Breast cancer Colorectal cancer Ulcerative colitis Past Surgical History Surgical History H/O: hysterectomy TLH salpingectomy, retains ovaries, 2019 History of cardiac cath 11/2021 [facility] - [place] - no stents History of esophagogastroduodenoscopy (EGD) History of nasal septoplasty Hx of colonoscopy Hx of hernia repair X2 (as a young child) Hx of wisdom tooth extraction Past Anesthesia History No Hx of Anesthesia Complications and No Family Hx of Anesthesia Complications History of PONV No Hx of PONV and No Hx of Motion Sickness Social History Smoking Status: Never smoker Do You Dip or Chew Tobacco: No Hx Alcohol Use: Yes alcohol intake frequency: holidays/special occasions only Hx Substance Use: No substance use type: does not use Review of Systems Infrequent cough-non productive. States this is residual from a viral illness several weeks ago and improving. She was advised to call office if no resolution the week before surgery. Patient denies chest pain, shortness of breath, dyspnea on exertion, fever, chills, wheezing, or palpitations. Physical Exam Vital Signs Vitals BP 127/76 P 67 TEMP 98.7 SP02 96% on RA RESP 17 Physical Patient resting comfortably in chair in no acute distress, alert and oriented, responding appropriately throughout visit Full cervical extension range of motion without pain TMD 3.5 finger breadths Mallampati Score 1 Dentition: repaired front upper teeth, denies chipped or loose teeth, caps/crowns, implants or bridges Lungs: normal respiratory effort. Good air movement, clear throughout to auscultation, no adventitious breath sounds Cardiac: regular rate and rhythm, no murmurs noted Carotid arteries: negative bruit bilat Lab Results Anesthesia Preop Results Results Anesthesia Widget: WBC 4.47 K/ul (4.8-10.8) L 11/04/23 Hgb 12.9 g/dl (12.0-16.0) 11/04/23 Hct 40.6 % (37.0-47.0) 11/04/23 Plt 261 K/uL (130-400) 11/04/23 Na 141 mmol/L (136-145) 11/04/23 K 4.2 mmol/L (3.5-5.1) 11/04/23 Cl 106 mmol/L (98-107) 11/04/23 CO2 30 mmol/L (21-32) 11/04/23 BUN 13 mg/dl (6-23) 11/04/23 Creat 0.92 mg/dl (0.6-1.2) 11/04/23 Glucose Level 94 mg/dl (70-99(Fasting)) 11/04/23 PT 10.4 Seconds (9.0-12.0) 07/10/24 PTT 30 Seconds (21-31) 11/04/23 INR 1.0 (0.9-1.1) 11/04/23 Blood Type O Positive 11/04/23 Antibody Screen NEGATIVE 11/04/23 Testing Electrocardiogram Date: 11/04/23 NSR, rate 63 bpm Nonspecific T wave abnormality Chest X-Ray Date: 11/04/23 No active disease in the chest. Echocardiogram Date: 04/30/23 EF 55-60% No LV regional wall motion abnormalities No LVH Mild mitral regurgitation Very small right to left interatrial shunt visualized following agitated saline administration, suggesting small PFO No atrial thrombus Other Testing Brain MRI 01/27/23 No acute abnormalities. Head and neck CTA 12/25/22 1. There is no hemorrhage, mass effect, or evidence of acute territorial ischemia by CT criteria. 2. 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 This is of indeterminate acuity and may be chronic. The dominant right vertebral artery is widely patent. 3. Otherwise unremarkable CT angiogram of the brain. 4. Unremarkable CT angiogram of the neck. Cardiac event report 09/12/23 NSR No new arrhythmic events Cardiac event monitor 02/06/23 Sinus rhythm with average HR 79 (59-122 bpm) No arrhythmia PVCs 4 patient events reported (short of breath). Symptoms occurred during NSR and mild sinus tachycardia with light activity
[~2023-11-27 07:49] MED LIST changes: +BUPIVACAINE 0.5 % 5 MG/1 ML PF 10ML VIAL ONE; -CEFAZOLIN 2000MG 2,000 MG/15 ML SYR IV SCH; -LACTATED RINGER'S 1,000 ML IV SCH; -LR 15ML/HR IV SCH; +ROPIVACAINE 0.5% 5 MG/ML 30 ML VIAL ONE
[2023-11-27] MEDS: FAMOTIDINE 20 MG TAB PO SCH (08:32)
[2023-11-27] MEDS: ACETAMINOPHEN 500 MG TAB PO SCH ×2 (08:32→13:40)
[2023-11-27] MEDS: GABAPENTIN 900 MG DOSE PO SCH (08:32)
[2023-11-27] MEDS: LR 60ML/HR IV SCH (08:33)
--- OUTSIDE RECORDS SUMMARY | 2023-11-27 08:36 | External Medical Summary | Summary of Care ---
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 Name Role Phone Unavailable Primary Care Provider Unavailabl e Encounter Details Date Type Department Care Team (Late st Contact Info) Description 11/16/2023 Orders Only Outcomes Research Department [address] [place] [address] Diana Collier CHRA [employer] [facility] Other*[id number] Allergies No known active allergiesdocumented as of this encounter (statuses as of 11/16/2023) Medications Medication Sig Dispensed Refills Start Date End Date Status MULTIVITAMINS PO TABS 1 a day 0 11/20/2006 Active CALCIUM + D 600-200 MG-UNIT PO TABS 1 daily Active TRIAMCINOLONE ACETONIDE 0.1 % EX CREAIndications:De rmatitis apply 2 times a day as directed 15 g 1 08/25/2011 Active Cholecalciferol (VITAMIN D3) 5000 UNITS Tablet Take 5,000 Units by mouth daily. Active albuterol (VENTOLIN HFA) 108 (90 BASE) MCG/ACT inhaler Inhale 2 Puffs by mouth every 4 hours as needed for Cough, Shortness of Breath or Wheezing (and prior exercise). 3 Inhaler 1 10/15/2016 Active fluticasone (FLOVENT HFA) 110 MCG/ACT inhaler Inhale 2 Puffs by mouth 2 times a day. 1 Inhaler 12 04/08/2017 Active Additional Information Patient not taking.Reported on 04/24/2021 valACYclovir (VALTREX) 1000 MG TabletIndications: Recurrent cold sores Take 2 Tabs by mouth every 12 hours. For 1 day for cold sores 4 Tab 11 04/30/2017 Active Additional Information Patient not taking.Reported on 04/24/2021 LORAzepam (ATIVAN) 0.5 MG TabletIndications: Anxiety Take 1 Tab by mouth at bedtime as needed for Anxiety. 30 Tab 04/30/2017 Active Additional Information Patient not taking.Reported on 04/24/2021 albuterol sulfate (PROVENTIL) (2.5 MG/3ML) 0.083% nebulizer solutionIndication s:Asthma exacerbation Inhale 1 Vial via nebulizer every 4 hours as needed for Wheezing. 1 Box Dosing Unit 11 06/15/2017 Active escitalopram (LEXAPRO) 20 MG TabletIndications: Anxiety Take 1 Tab by mouth daily. 90 Tab 3 09/03/2017 Active fexofenadine (ARNAV) 180 MG TabletIndications: Mild persistent asthma without complication,Mixed rhinitis Take 1 Tab by mouth daily. 90 Tab 3 09/03/2017 Active hydrochlorothiazid e (HYDRODIURIL) 25 MG TabletIndications: HTN, goal below 140/90 Take 1 Tab by mouth daily. 90 Tab 3 09/03/2017 Active montelukast (SINGULAIR) 10 MG TabletIndications: Mild persistent asthma without complication 1 by mouth daily 90 Tab 3 09/03/2017 Active omeprazole (PRILOSEC) 20 MG CPDRIndications:Ga stroesophageal reflux disease without esophagitis Take 1 Cap by mouth daily. 1 hour before the first meal of the day 90 Cap 3 09/03/2017 Active fluticasone-salmet liya (ADVAIR DISKUS) 250-50 MCG/DOSE inhalerIndications :Mild persistent asthma without complication Inhale 1 Puff by mouth 2 times a day. 3 Disk Dosing Unit 3 09/03/2017 Active FLUoxetine (PROZAC) 20 MG CapsuleIndications :Anxiety Take 1 Cap by mouth daily. 90 Cap 3 12/06/2017 Active Additional Information Patient not taking.Reported on 04/24/2021 Losartan Potassium 25 MG Oral Tablet (Cozaar) 03/02/2021 Active Rosuvastatin Calcium 5 MG Oral Tablet (Crestor) 03/02/2021 Active documented as of this encounter (statuses as of 11/16/2023) Active Problems Problem Noted Date Diagnosed Date Allergic conjunctivitis, bilateral 04/09/2017 Eczema 04/25/2015 Allergic conjunctivitis 04/25/2015 Mixed rhinitis 04/24/2011 Asthma, mild persistent 03/14/2010 Overview: 04/10/10 PFT -- Baseline essentially normal spirometry. No significant improvement with the use of albuterol. Normal maximum voluntary ventilation. Supernormal lung volumes. Mildly reduced diffusion capacity. Normal flow volume loops. ADVANCE DIRECTIVE INFORMATION 03/30/2007 Overview: No, Advance Directive brochure given to patient at prior appointment. GERD (gastroesophageal reflux disease) documented as of this encounter (statuses as of 11/16/2023) Resolved Problems Problem Noted Date Diagnosed Date Resolved Date Major depressive disorder, s nano episode, mild 12/17/2010 07/16/2016 Asthma with severity to be determined 05/16/2003 03/14/2010 Overview: ICD-10 update of inactive term documented as of this encounter (statuses as of 11/16/2023) Immunizations Name Administration Dates Next Due H1N1 2009 Influenza, IM 02/25/2009 PPD 09/10/2006 Pneumococcal Polysaccharide PPV23 (Pneumovax) 07/17/2009 Seasonal Influenza, Quadriva lent, No Preserve, IM 01/25/2015 Seasonal Influenza, Split, I IV3, With Preserve, Inj 02/09/2016,02/16/2013,01/26/2012,02/25,02/04/2010,12/26/2008,03/01/2008 Seasonal Influenza, Trivalen t, Adjuvanted, 65+ yrs 12/31/2016 TD - Tetanus/Diptheria (ADULT) 10/24/2004 TDAP, Age 7 and older, IM (Adacel) 01/25/2010 documented as of this encounter Social History Tobacco Use Types Packs/Day Years Used Date Smoking Tobacco: Never Smokeless Tobacco: Never Comments:no passive smoke Alcohol Use Standard Drinks/Week Comments No 0 (1 standard drink = 0.6 oz pur e alcohol) PHQ-2 Answer Date Recorded PHQ-2 Score -1 02/28/2018 Utilities Answer Date Recorded Do you have trouble paying y our heating, water, or electric bill? (Adult - for ages 18 years and over) Not on file 10/13/2023 Is your family able to pay t he heat, water, or electric bill? (Household - for ages 0-17 years) Not on file 10/13/2023 Does your family have access to good internet? (Household - for ages 0-17 years) Not on file 10/13/2023 Social Connections Answer Date Recorded How often do you feel lonely or isolated from those around you? (Adult - for ages 18 years and over) Not on file 10/13/2023 Sex and Gender Information Value Date Recorded Sex Assigned at Not on file Gender Identity Not on file Sexual Orientation Not on file documented as of this encounter Plan of Treatment Scheduled Orders Name Type Priority Associated Diagnoses Orde r Schedule MYCODE INITIAL ADULT Lab Routine MyCode Research Other*[id number] Expected: 11/16/2023 (Approximate), Expires: 12/05/2024 Health Maintenance Due Date Last Done Comments HIV Screening 1987 Hepatitis C Screening 1990 Hepatitis B Vaccine (1 of 3 - 19+ 3-dose series) 1991 HPV/Co-Test 2002 Pneumococcal Vaccine: Pediatrics (0 to 5 Years) and At-Risk Patients (6 to 64 Years) (2 of 2 - PCV) 07/17/2010 07/17/2009 Cologuard 2017 Fecal Occult Blood Test 2017 Sigmoidoscopy 2017 Mammogram 01/29/2018 01/29/2017, 11/27, 12/20/2015, Additional history exists Depression Screening 09/03/2018 09/03/2017 Cervical Cancer Screening 05/16/2019 Pap Smear 05/16/2019 05/16/2016, 04/27 (Done elsewhere), 05/08/2015, Additional history exists DTaP,Tdap,and Td Vaccines (2 - Td or Tdap) 01/26/2020 01/25/2010, 10/24/2004 Lipid Panel 01/27/2021 01/28/2016, 08/16/2009 Zoster Vaccines (1 of 2) 2022 COVID-19 Vaccine ( - season) 2022 Colonoscopy 06/17/2023 06/17/2013 Colorectal Cancer Screening 06/17/2023 Influenza Vaccine (FLU shot) (#1) 2023 12/31/2016, 02/09/2016, 01/25/2015, Additional history exists HPV (Gardasil) Vaccine Aged Out No lo nger eligible based on patient's age to complete this topic MENINGOCOCCAL (MENACTRA/MENVEO) Aged Out No longer eligible based on patient's age to complete this topic documented as of this encounter Medical Devices Not on filedocumented as of this encounter Visit Diagnoses Diagnosis [employer] Research Other*[id number] documented in this encounter
[2023-11-27] MEDS: dexAMETHasone**PF** 10 MG/ML VIAL IV SCH (08:42)
[2023-11-27] MEDS: LR 500ML BOLUS, THEN 15ML/HR IV SCH (08:42)
--- NOTE | 2023-11-27 09:10 | History & Physical Bridge Note ---
Date of Service November 27, 2023 History & Physical Bridge Note I have examined the patient, reviewed the History & Physical and in the interval since the performance of the History & Physical I have noted the following changes of clinical significance: no changes noted
[2023-11-27] MEDS ORDERED: MIDAZOLAM HCL 1 MG/ML 2ML VIAL ONE ×2 (09:31)
[2023-11-27] MEDS ORDERED: PROPOFOL IV EMULSION 10 MG/ML 20 ML VIAL IV ONE (09:31)
[2023-11-27] MEDS ORDERED: ePHEDrine sulfate 50 MG/ML AMP IV PRN (09:37)
[2023-11-27] MEDS ORDERED: ONDANSETRON INJ 2 MG/ML 2 ML VIAL IV PRN ×2 (09:37→13:07)
[2023-11-27] MEDS ORDERED: fentaNYL citrate PF 100 MCG/2 ML VIAL IV PRN (09:37)
[2023-11-27] MEDS ORDERED: ATROPINE SULFATE 0.1 MG/ML 10ML SYR IV PRN (09:37)
[2023-11-27] MEDS: TRANEXAMIC ACID 1,000 MG **IV Pre-op IV SCH (09:43)
[2023-11-27] MEDS: ceFAZolin 2000MG 2,000 MG/15 ML SYR IV SCH ×2 (10:04→17:58)
[2023-11-27] MEDS: ORTHO JOINT ANESTHETIC ONE (10:57)
[2023-11-27] MEDS: ROPIV 0.5% 246mg, Ketorolac 30mg, EPINEPHrine 0.5mg in NSS INFIL SCH (10:59)
[2023-11-27] MEDS: TRANEXAMIC ACID 1,000 MG **IV Intra-op IV SCH (11:00)
--- NOTE | 2023-11-27 11:11 | Operative Report ---
PG Post Operative Report Pre & Post Diagnosis Operation Date: 11/27/23 10:00 Pre-Op Diagnosis: Osteoarthrisits Right Knee Post-Op Diagnosis: Osteoarthrisits Right Knee I identified the patient and participated in the time-out.: Yes Procedure Operation Date: 11/27/23 10:00 Actual Procedures p Right Total Knee Arthroplasty(Right) - Matt Blank DO Surgeon Matt Blank DO Health Practice Manager Matt Daniels PA-C Estimated Blood Loss 30 Findings Consistent with Post-Op Diagnosis Specimens Right femoral tibial bone Description of Procedure Implants used: I used a Bella Persona total knee arthroplasty system with a size 8 standard CR femur, E tibia, 31 oval patella, and a size 10 medial congruent polyethylene bearing. All components were cemented in place with Biomet cement. Ana María arrived [facility] for the above procedure. She was seen in the preoperative holding area and the operative extremity was identified and signed. She was given a preoperative antibiotic, TXA, a spinal anesthetic and an adductor nerve block. She was taken back to the operating room and laid on the table in supine position. She was given basic sedation. The operative knee was then prepped and draped in sterile fashion. A timeout was done, and the patient and the operative extremity was properly identified. A midline incision was made directly over the patella. Dissection was taken down to the extensor mechanism. A subvastus arthrotomy was used. The medial retinaculum was released and the fat pad was mostly excised. The knee was flexed and the ACL, PCL, and meniscus were removed. A drill was sent down the center of the femoral canal followed by an intramedullary chris. Off that chris a distal femoral cutting block was placed. 9 mm was resected off the distal femur at 5 of valgus. A posterior referencing AP sizing guide was then placed on the distal femur. The femur measured to be a size 8. 2 drill holes were placed in 3 of external rotation. A 4-in-1 cutting block was then impacted into place. Anterior, posterior, and chamfer cuts were then made. The proximal tibia was then exposed. An external tibial alignment guide was placed. A tibial cut guide was then anchored in place and the proximal tibia was then resected. The posterior aspect of the knee was then opened up and any additional meniscus fragments and osteophytes were removed. The tibia measured to be a size E. The tibial plate was then placed in the appropriate rotation and the tibia was drilled and punched. Trial components were then placed. I used a size 10 medial congruent polyethylene insert. The knee was brought through a full range of motion and felt to be stable. The peg holes for the femoral component were then drilled. The patella was then everted and 9 mm was resected off the posterior aspect of the patella. The patella measured to be a size 31 oval. 3 peg holes were then drilled. A trial patella was placed. The knee was once again brought through a full range of motion and felt to be stable. Trial components were then removed. The surrounding soft tissues were injected with 100 cc of an orthopedic pain control cocktail. All components were then cemented into place with Biomet cement. The final polyethylene insert was then snapped into place. Once cement was dry the tourniquet was deflated. Hemostasis was obtained. A dilute betadyne lavage was then done for 3 minutes. The joint was then irrigated with normal saline solution. The subvastus arthrotomy was then closed with #1 Vicryl suture. The skin was closed with 2-0 Vicryl, 3-0V lock suture, and mikey. A soft compressive dressing was placed. She was then transferred to a hospital bed and taken to the postanesthesia care unit in stable condition. She tolerated the procedure well. Matt Daniels PA-C, was present for the entire procedure. He was critical for patient positioning, prepping, draping, retraction exposure, wound closure and application of sterile dressing. I attest to the content of the Intraoperative Record and any orders documented therein. Any exceptions are noted below.
--- NOTE | 2023-11-27 12:03 | XRay Report ---
XR knee RT 1 or 2V routine HISTORY: 53 years-old Female Surgical Post Op right knee arthroplasty COMPARISON: 06/26/2021 TECHNIQUE: 2 views of the right knee FINDINGS: Total joint arthroplasty with patellar resurfacing. Anterior midline skin mikey with expected posto perative soft tissue swelling and deep tissue air. No acute fracture, dislocation or osseous erosion. IMPRESSION: Total arthroplasty with expected postoperative changes. ACT 112: Negative or not required by law. The above report was generated using voice recognition software. It may contain grammatical, syntax o r spelling errors. Electronically signed by: José Antonio Zelaya M.D. 11/27/2023 12:01 PM
--- NOTE | 2023-11-27 12:18 | Anesthesiology Progress Note ---
Date of Service November 27, 2023 Anesthesia Post Procedure Vital Signs Vital Signs: Temp Pulse Pulse Resp BP Pulse Ox O2 Del Method 11/27/23 12:10 81 16 120/78 93 Room Air 11/27/23 12:00 82 20 121/83 96 Oxymask 11/27/23 11:50 83 18 128/81 94 Oxymask 11/27/23 11:40 85 18 117/74 94 Oxymask 11/27/23 11:30 36.5 C 89 16 113/74 95 Oxymask 11/27/23 08:22 Room Air 11/27/23 08:22 37.4 C 79 20 130/97 95 Room Air O2 Flow Rate 11/27/23 12:10 11/27/23 12:00 2 11/27/23 11:50 4 11/27/23 11:40 4 11/27/23 11:30 6 11/27/23 08:22 11/27/23 08:22 Pain Intensity Right Knee: Pain Intensity: 4 Notes Mental Status: alert / awake / arousable Patient Amnestic to Procedure: Yes Nausea / Vomiting: adequately controlled Pain: adequately controlled Airway Patency, RR, SpO2: stable & adequate BP & HR: stable & adequate Hydration State: stable & adequate Neuraxial Anesthesia: was administered and sensory block is resolving Anesthetic Complications: no major complications apparent
[2023-11-27] MEDS ORDERED: MAGNESIUM HYDROXIDE SUSP 30 ML UDC PO PRN (13:07)
[2023-11-27] MEDS ORDERED: ALBUTEROL 0.083% NEBU SOLN 3 ML VIAL INH PRN (13:07)
[2023-11-27] MEDS ORDERED: FLUTICASONE PROPIONATE NA SPR 16 GM BTL PRN (13:07)
[2023-11-27] MEDS ORDERED: ALBUTEROL HFA 8 GM INHALER INH PRN (13:07)
[2023-11-27] MEDS ORDERED: NITROGLYCERIN SL 0.4 MG/TAB TAB SL PRN (13:07)
[2023-11-27] MEDS ORDERED: bisacodyL 10 MG SUPP PR PRN (13:07)
[2023-11-27] MEDS ORDERED: MECLIZINE 12.5 MG TAB PO PRN (13:07)
[2023-11-27] MEDS ORDERED: HYDROmorphone INJ 0.5 MG/0.5 ML SYR IV PRN (13:07)
[2023-11-27] MEDS ORDERED: NALOXONE HCL 0.4 MG/1 ML VIAL/CARP IV PRN (13:07)
[2023-11-27] MEDS ORDERED: METOCLOPRAMIDE HCL INJ 5 MG/ML 2 ML VIAL IV PRN (13:07)
[2023-11-27] MEDS: KETOROLAC TROMETHAMINE 15 MG/ML VIAL IV SCH (13:39)
[2023-11-27] MEDS: SODIUM CHLORIDE 0.9% 1,000 ML IV SCH (13:40)
[2023-11-27] MEDS: ASPIRIN 81 MG ECTAB PO SCH (21:02)
[2023-11-27] MEDS: SENNA 8.6 MG TAB PO SCH (21:03)
[2023-11-27] MEDS: ESCITALOPRAM OXALATE 20 MG TAB PO SCH (21:03)
[2023-11-27] MEDS: DOCUSATE SODIUM 100 MG CAP PO SCH (21:03)
[2023-11-27] MEDS: ROSUVASTATIN CALCIUM 20 MG TAB PO SCH (21:03)
[2023-11-27] MEDS: MONTELUKAST SODIUM 10 MG TABLET PO SCH (21:03)
[2023-11-28] MEDS: oxyCODONE HCL IR 5 MG TAB (IMMEDIATE RELEASE) PO PRN (02:13)
[2023-11-28] MEDS: CLOPIDOGREL BISULFATE 75 MG TAB PO SCH (08:24)
[2023-11-28] MEDS: dexAMETHasone 4 MG TAB PO SCH (08:24)
[2023-11-28] MEDS: FLUTICASONE/VILANTEROL 200/25MCG 14 PUFFS/INHALER INH SCH (08:25)
[2023-11-28] MEDS: FEXOFENADINE HCL 180 MG TAB PO SCH (08:25)
[2023-11-28] MEDS: METOPROLOL SUCC 50MG EXT REL TAB PO SCH (08:26)
[2023-11-28] MEDS: MULTIVITAMIN TAB PO SCH (08:27)
--- NOTE | 2023-11-28 08:28 | Orthopedic Progress Note ---
Date of Service November 28, 2023 Assessment & Plan (1) Status post right knee replacement: Overall she is doing very well. She is not having much pain in the right knee. She will be seen by physical therapy today for ambulation and range of motion exercises. The nursing staff can change her dressing after physical therapy. She can be discharged home later today. She will follow-up orthopedics in 2 weeks. Abril Gotti was seen and examined at bedside this morning. Overall she is doing very well. She is not having much pain in the right knee. She has been up and ambulating to the bathroom. She is no complaints.. Review of Systems All systems reviewed & are unremarkable except as noted in HPI & below. Physical Exam On physical examination of the right knee, the dressing is clean and dry. Her legs out full extension. She has active dorsiflexion plantarflexion of her right ankle.. Results & Data Results & Data Laboratory Results . Diagnostic Findings Postoperative x-rays of the right knee show the prosthesis to be in anatomic alignment without any evidence of fracture complication, or loosening.. PG Care Time/CCT Total # of Minutes Spent Total Time Spent with Patient: Total time spent is greater than 50% in coordination of care (as documented) at patient's floor/unit and/or counseling patient: Coding Level of Care Code 73769 Post Operative Follow-Up Diagnoses Status post right knee replacement Z96.651
--- NOTE | 2023-11-28 08:29 | Discharge Summary ---
Date of Service November 28, 2023 Principal Diagnosis Same as "Discharge Diagnosis" noted below under Discharge Instructions. Discharge Exam On physical examination of the right knee, the dressing is clean and dry. Her legs out full extension. She has active dorsiflexion plantarflexion of her right ankle.. Discharge Data Procedures Performed Operation Date: 11/27/23 10:00 Actual Procedures p Right Total Knee Arthroplasty(Right) - Matt Blank DO Ordered Studies 11/27/23 05:00 US - OR guided needle placemen Routine Hospital Course (1) Status post right knee replacement: November 27, 2023 Ana María arrived at [facility] and underwent a right knee replacement without complication. She had a spinal anesthetic. Postoperatively she was started on aspirin and Plavix for DVT prophylaxis and transferred to the general orthopedic floors. Her hospital course was uneventful. On postop day #1, her vital signs were stable and her pain was well-controlled. She was able to participate well with physical therapy doing ambulation and range of motion exercises. She was then discharged home. She will follow-up orthopedics in 2 weeks. PG Care Time/CCT Total # of Minutes Spent Total Time Spent with Patient: Total time spent is greater than 50% in coordination of care (as documented) at patient's floor/unit and/or counseling patient: Discharge Plan Discharge Items Patient Disposition: Home - Self-Care Reason For Visit: Right Knee Degenerative Joint Disease Discharge Diagnosis: Right knee replacement Activity: Per Instructions section Non-emergency contact: Surgeon Call non-emergency contact if: your wound has increased redness and your wound has increased drainage Follow-up/Referrals: Katherine Parham MD [Primary Care Provider] - Diet: Regular Addtl Attending Provider Instructions: Activity and Therapy Recommendations: * If you are using [facility] then therapy will be provided at your home until they feel you have accomplished all of your goals. * If you are using [facility] then Physical Therapy will be provided until they feel you are ready to start Outpatient Physical Therapy. * If you are not using home therapy then Outpatient Physical Therapy should start about 3-5 days from your day of surgery. Therapy will last about 6-10 w eeks * It is important not to put a pillow under your knee when you are relaxing or sleeping. It is just as important to make sure you are getting your knee perfectly straight as it is to regain your knee bend. * You were shown a series of exercises in the hospital. Do these exercises three times each day including the exercises you were shown in physical therapy. * Get up and walk several times each day. For the first four weeks, try not to stand or walk for more than one hour at a time. If you do stand or walk for more than one hour, you will not hurt anything, but your leg will likely swell . * As you feel comfortable, you may change from the walker or crutches to a cane and then to independent walking. Medications: * Narcotic You will likely be sent home from the hospital with a prescription for the narcotic pain medication that worked best throughout your stay. * Cefadroxil -take the antibiotic twice a day for 10 days to help prevent infection. * Aspirin - take aspirin 81 mg twice a day for 6 weeks after surgery. You may continue taking your Plavix as prescribed. * Other medications may be prescribed for specific circumstances. If you have any questions, please call the office at . * Resume previous home medications unless otherwise instructed TEDs/Elastic Stockings: The white elastic stockings help limit swelling and prevent blood clots from forming in your legs.~ The more you wear them, the more they work. Wear them for six weeks. Dressing Care: The dressing can be changed after physical therapy on postop day #1. Daily dry dressing changes for a few days, especially if the incision is still draining some. If the incision is not draining then you may leave the mikey open to air. If there is a little bit of drainage or if the mikey are getting stuck on your clothing then cover the incision with a dry dressing. The mikey will be removed at your 2 week follow-up appointment. Showering: You may shower 5 days from the day of surgery as long as the incision is no longer draining. You may shower with the mikey exposed. Let soapy water run over the mikey and pat them dry. Do not scrub or soak the incision. Things To Watch For: * Drainage from the incision site that occurs more than one week after your surgery. * Increased redness at the incision site. * Fever above 102 degrees Fahrenheit. * Unusual chest pain or shortness of breath. * Call [facility] at with any of the above problems Follow-Up Visit: Follow-up with Dr. Blank's PA (Matt Daniels) 2-3 weeks after your day of surgery. He will remove your mikey and answer any questions. If you have any additional questions or concerns, Dr Blank is usually in the office at the same time and will be available An appointment was probably scheduled when you signed-up for surgery in the office. If you have any questions call Office Instructions: More detailed instructions as well as Frequently Asked Questions were provided in a folder by our office when you signed-up for surgery. Please review these instructions when you get home. If you have any further questions or concerns, please feel free to call the office at [phone] Pending Studies at Discharge: No Stand-Alone Forms: [employer], Smoking Cessation Medications and DC Order Prescriptions: New oxycodone 5 mg Tablet 5 mg PO Q4H PRN (Reason: pain) Qty: 30 0RF cefadroxil 500 mg capsule 500 mg PO BID 10 Days Qty: 20 0RF Continued escitalopram oxalate [Lexapro] 20 mg tablet 20 mg PO QPM Qty: 90 3RF metoprolol succinate 50 mg tablet extended release 24 hr 50 mg PO QAM Qty: 90 3RF rosuvastatin 40 mg tablet 40 mg PO HS Qty: 90 3RF montelukast 10 mg tablet 10 mg PO HS Qty: 90 3RF calcium carbonate-vitamin D3 600 mg(1,500mg) -200 unit tablet 1 tab PO QAM multivitamin [Daily Multi-Vitamin] tablet 1 tab PO QAM cholecalciferol (vitamin D3) 5,000 unit capsule 5,000 units PO QAM fluticasone propionate 50 mcg/actuation spray,suspension 2 sprays intranasal QAM PRN (Reason: ALLERGIES) (DME) CPAP Machine Misc See Rx Instructions .MEDSUPPLY Qty: 1 0RF Rx Instructions: CPAP 9 cm water pressure with heated humidification, tubing, and supplies. KADEN: 99+ years. albuterol sulfate 2.5 mg /3 mL (0.083 %) solution for nebulization 2.5 mg inhalation Q4H PRN (Reason: wheezing) Qty: 90 3RF albuterol sulfate 90 mcg/actuation HFA aerosol inhaler 2 puff inhalation Q4H PRN (Reason: Shortness Of Breath) Qty: 18 3RF pantoprazole 40 mg tablet,delayed release (DR/EC) 40 mg PO BID Qty: 180 3RF (DME) nebulizer accessories Misc See Rx Instructions .ROUTE .MEDSUPPLY Qty: 1 0RF Rx Instructions: As directed estradiol 0.01 % (0.1 mg/gram) cream 0.5 g vaginal 2XWK Qty: 42.5 2RF Rx Instructions: Usually sundays and fexofenadine [Paz Allergy] 180 mg tablet 180 mg PO QAM nitroglycerin [Nitrostat] 0.4 mg Tablet, Sublingual 0.4 mg sublingual UD PRN (Reason: chest pain) Qty: 1 0RF Rx Instructions: and can repeat q5 min x 3 doses, then call 911 meclizine 12.5 mg tablet 12.5 mg PO TID PRN (Reason: dizziness) Qty: 20 0RF fluticasone propion-salmeterol [Wixela Inhub] 250-50 mcg/dose blister with device 1 inh inhalation BID Rx Instructions: USE 1 INHALATION ORALLY TWICE DAILY clopidogrel 75 mg tablet 75 mg PO QAM Rx Instructions: TAKE 1 TABLET DAILY Changed aspirin 81 mg Tablet,Delayed Release (Dr/Ec) 81 mg PO BID 42 Days Qty: 0 0RF Discharge Orders: Discharge Order (Routine); Ordered 11/28/23 Ordered By: Matt Blank Admission Data Admit Date/Time: 11/27/23 11:33 Attending Provider: Matt Blank Admit Provider: Matt Blank Primary Care Provider: Katherine Parham
== END 2023-11-28 10:50 | disposition home health service (06) ==
LOC: 3E 07:49 → ASU 07:49

== ENCOUNTER 2024-06-03 08:44 | Observation (INO) ==
--- NOTE | 2024-05-04 10:48 | PAT Medication Instructions ---
Medication Instructions Date of Service May 04, 2024 Home Medications Medication Instructions Recorded CPAP Machine #1 ea 07/03/20 nebulizer accessories #1 ea 08/17/20 nitroglycerin 0.4 mg sublingual 0.4 mg sublingual UD PRN chest 12/07/21 tablet (Nitrostat) pain #1 btl albuterol sulfate 2.5 mg/3 mL 2.5 mg (3 mL) inhalation Q4H PRN 12/17/22 (0.083 %) solution for nebulization wheezing #90 mL albuterol sulfate 90 mcg/actuation 2 puff inhalation Q4H PRN 12/17/22 aerosol inhaler Shortness Of Breath #18 grams estradiol 0.01% (0.1 mg/gram) 0.5 g vaginal 2XWK #42.5 grams 10/01/23 vaginal cream metoprolol succinate 50 mg 50 mg PO QAM #90 tabs 11/18/23 tablet,extended release 24 hr escitalopram oxalate 20 mg tablet 20 mg PO QPM #90 tabs 01/18/24 (Lexapro) calcium 600 mg (as carbonate)-vitamin D3 5 mcg (200 unit) tablet 1 tab PO QAM cholecalciferol (vitamin D3) 125 mcg (5,000 unit) capsule 5,000 units PO QAM multivitamin (Daily Multi-Vitamin tablet) 1 tab PO QAM fluticasone propionate 50 mcg/actuation nasal spray,suspension 2 sprays intranasal QAM PRN Allergies nitroglycerin 0.4 mg sublingual tablet (Nitrostat) 0.4 mg sublingual UD PRN chest pain albuterol sulfate 2.5 mg/3 mL (0.083 %) solution for nebulization 2.5 mg (3 mL) inhalation Q4H PRN wheezing albuterol sulfate 90 mcg/actuation aerosol inhaler 2 puff inhalation Q4H PRN Shortness Of Breath fexofenadine 180 mg tablet (Paz Allergy) 180 mg PO QAM estradiol 0.01% (0.1 mg/gram) vaginal cream 0.5 g vaginal 2XWK clopidogrel 75 mg tablet (Plavix) 75 mg PO QAM fluticasone 250 mcg-salmeterol 50 mcg/dose blistr powdr for inhalation 1 inh inhalation BID metoprolol succinate 50 mg tablet,extended release 24 hr 50 mg PO QAM escitalopram oxalate 20 mg tablet (Lexapro) 20 mg PO QPM amoxicillin 500 mg tablet 2,000 mg PO ONCE PRN Dental Procedures montelukast 10 mg tablet (Singulair) 10 mg PO HS pantoprazole 40 mg tablet,delayed release (Protonix) 40 mg PO BID rosuvastatin 40 mg tablet (Crestor) 40 mg PO HS Continue as directed nitroglycerin 0.4 mg sublingual tablet (Nitrostat) 0.4 mg sublingual UD PRN chest pain (if needed) amoxicillin 500 mg tablet 2,000 mg PO ONCE PRN Dental Procedures (if needed) ASK your prescriber and surgeon estradiol 0.01% (0.1 mg/gram) vaginal cream 0.5 g vaginal 2XWK clopidogrel 75 mg tablet (Plavix) 75 mg PO QAM (will need to hold Plavix/clopidogrel for at least 7 days prior to surgery in order to get spinal anesthesia) DO NOT take the morning of surgery calcium 600 mg (as carbonate)-vitamin D3 5 mcg (200 unit) tablet 1 tab PO QAM cholecalciferol (vitamin D3) 125 mcg (5,000 unit) capsule 5,000 units PO QAM multivitamin (Daily Multi-Vitamin tablet) 1 tab PO QAM fexofenadine 180 mg tablet (Paz Allergy) 180 mg PO QAM Take morning of surgery With a small sip of water, OTHERWISE NOTHING TO EAT OR DRINK AFTER MIDNIGHT: fluticasone propionate 50 mcg/actuation nasal spray,suspension 2 sprays intr anasal QAM PRN Allergies (if needed) albuterol sulfate 2.5 mg/3 mL (0.083 %) solution for nebulization 2.5 mg (3 mL) inhalation Q4H PRN wheezing (if needed) albuterol sulfate 90 mcg/actuation aerosol inhaler 2 puff inhalation Q4H PRN Shortness Of Breath (use if needed; please bring with you to hospital day of surgery if possible) fluticasone 250 mcg-salmeterol 50 mcg/dose blistr powdr for inhalation 1 inh inhalation BID metoprolol succinate 50 mg tablet,extended release 24 hr 50 mg PO QAM pantoprazole 40 mg tablet,delayed release (Protonix) 40 mg PO BID Take evening before surgery albuterol sulfate 2.5 mg/3 mL (0.083 %) solution for nebulization 2.5 mg (3 mL) inhalation Q4H PRN wheezing (if needed) albuterol sulfate 90 mcg/actuation aerosol inhaler 2 puff inhalation Q4H PRN Shortness Of Breath (if needed) fluticasone 250 mcg-salmeterol 50 mcg/dose blistr powdr for inhalation 1 inh inhalation BID escitalopram oxalate 20 mg tablet (Lexapro) 20 mg PO QPM montelukast 10 mg tablet (Singulair) 10 mg PO HS pantoprazole 40 mg tablet,delayed release (Protonix) 40 mg PO BID rosuvastatin 40 mg tablet (Crestor) 40 mg PO HS Other Notes If you have any questions please call us at [phone] or [phone] or [phone] or [phone]
--- NOTE | 2024-05-10 09:13 | Anesthesiology Consultation ---
Date of Service May 10, 2024 Assessment & Plan (1) Encounter for pre-operative examination: - Infectious disease screening: Per assessment on 05/10/24- No known recent infectious disease contacts or current infectious disease symptoms. - Outpatient joint assessment: Pt currently scheduled for inpatient pathway. If surgeon requests review for outpatient joint pathway, patient is not recommended candidate for outpatient joint program from anesthesia standpoint based on available information. - Plavix instructions: Patient made aware at PAT visit 05/10/24 that for neuraxial anesthesia, Plavix needs to be held 7 days prior to surgery. Patient voiced understanding- this has already approved by cardiology- patient will start baby ASA while holding Plavix per cardio recommendations. Patient voiced understanding. - Neurology office visit 11/06/23 [place]: "...At this point in time, she may remain on her current medication regimen; she may hold the plavix 7 days prior to her total knee replacement as she has not had any recent neurologic events; the plavix should be restarted after her surgery once stable from a surgical standpoint. She is to continue with strict CPAP use. She is to continue with vascular risk factor reduction. She is to continue to follow with all current providers and their recommendations as advised. We will follow up with her in one year, and sooner if needed..." - S/P Right TKA (11/27/23): SAB at L3/4 (1 attempt) + regional at [facility] - EP visit (03/14/24): "Transient ischemic attack: No recurrent symptoms. Unclear etiology. Thought possibly related to vertebral artery stenosis. Previously evaluated for PFO closure but not felt to require closure. No arrhythmias detected on her loop recorder today. We do received for remote transmissions or see her in the clinic on an annual basis. 2. Coronary disease: She presented with an NSTEMI. Possibly related to a very small obtuse marginal branch. No obstructive disease in the remaining distributions. 3. Patent foramen ovale 4. Vertebral artery stenosis.. Follow Up: Device clinic 1 Year" - Cardiology visit (05/06/24): "1. CAD s/p NSTEMI (Nov 2021): No angina. Probable severe CAD in very small caliber OM branch. Medical therapy recommended. Continue antiplatelet therapy. Neurology has replaced aspirin with Plavix following possible vertebral artery thrombosis in 2022. Continue beta-danial and high-intensity statin therapy. ARB discontinued in the past due to significant hypotension. Did not tolerate nitrate therapy. 2. Hypertension: My hypotensive, but asymptomatic. No changes made today. Hypotensive in the past on ARB. 3. Dyslipidemia: Goal LDL < 70. Excellent LDL. Continue high-intensity statin therapy. Mediterranean diet and regular cardiovascular exercise recommended. Regular cardiovascular exercise. 4. TIA: Thrombosed vertebral artery reported on imaging and neurology note locally. Was evaluated by neurology at [facility] who felt there is intrinsic narrowing of the left vertebral artery. [facility] neurology did not feel TIA symptoms were due to embolic event. Now on Plavix in place of aspirin as per neurology. Loop recorder in place and followed by electrophysiology. 5. PFO: Has been seen by [facility], Dr. Evan Hoyos, for possible PFO closure. [facility] neurology did not feel as though her event was embolic and therefore PFO closure has not been recommended at this time. She follows with [facility] cardiology annually. On antiplatelet therapy. 6. Preoperative cardiac assessment: Upcoming left knee surgery. Low cardiac risk currently. She will remain on antiplatelet therapy in the form of Plavix 75 mg daily. When Plavix needs to be held 5-7 days prior to the procedure, she will use aspirin 81 mg daily. 7. Disposition: Follow-up in approximately 5 months. Will then try to stagger this appointment with her other cardiology appointments, with annual follow-up here. Call sooner for any questions or concerns." Chart Review Chart Review: Acceptable Risk for Surgery and Patient seen in Pre Admission Testing Teaching & Discussion Pre-Anesthesia Teaching/Discussion Notes: Instructed NPO after midnight before surgery,except medications with 15 cc of water. Medication instructions provided according to the PAT guidelines. History Surgery Operation Date: 06/03/24 07:00 Proposed Procedures p Left Total Knee Arthroplasty - Matt Blank, Height/Weight Height: 5 ft 6.5 in Weight: 86.7 kg Allergies Allergy/AdvReac Type Severity Reaction Status Date / Time No Known Drug Allergies Allergy Verified 05/06/24 15:28 Medications Home Medications Medication Instructions Recorded Confirmed Last Taken calcium 600 mg (as 1 tab PO QAM 12/11/18 05/06/24 11/26/23 07:30 carbonate)-vitamin D3 5 mcg (200 unit) tablet cholecalciferol (vitamin D3) 125 5,000 units PO QAM 12/11/18 05/06/24 11/26/23 07:30 mcg (5,000 unit) capsule multivitamin (Daily Multi-Vitamin 1 tab PO QAM 12/11/18 05/06/24 11/26/23 08:00 tablet) fluticasone propionate 50 2 sprays intranasal QAM PRN 12/20/18 05/06/24 11/27/23 07:00 mcg/actuation nasal Allergies spray,suspension CPAP Machine #1 ea 07/03/20 05/06/24 Unknown nebulizer accessories #1 ea 08/17/20 05/06/24 Unknown nitroglycerin 0.4 mg sublingual 0.4 mg sublingual UD PRN chest 12/07/21 05/06/24 Unknown tablet (Nitrostat) pain #1 btl albuterol sulfate 2.5 mg/3 mL 2.5 mg (3 mL) inhalation Q4H PRN 12/17/22 05/06/24 08/26/23 (0.083 %) solution for nebulization wheezing #90 mL albuterol sulfate 90 mcg/actuation 2 puff inhalation Q4H PRN 12/17/22 05/06/24 11/24/23 aerosol inhaler Shortness Of Breath #18 grams fexofenadine 180 mg tablet 180 mg PO QAM 12/30/22 05/06/24 11/26/23 07:30 (Paz Allergy) estradiol 0.01% (0.1 mg/gram) 0.5 g vaginal 2XWK #42.5 grams 10/01/23 05/06/24 11/22/23 vaginal cream clopidogrel 75 mg tablet (Plavix) 75 mg PO QAM 10/22/23 05/06/24 11/19/23 07:30 fluticasone 250 mcg-salmeterol 50 1 inh inhalation BID 10/22/23 05/06/24 11/27/23 07:00 mcg/dose blistr powdr for inhalation metoprolol succinate 50 mg 50 mg PO QAM #90 tabs 11/18/23 05/06/24 11/27/23 07:00 tablet,extended release 24 hr escitalopram oxalate 20 mg tablet 20 mg PO QPM #90 tabs 01/18/24 05/06/24 Unknown (Lexapro) amoxicillin 500 mg tablet 2,000 mg PO ONCE PRN Dental 05/03/24 05/06/24 Unknown Procedures montelukast 10 mg tablet 10 mg PO HS 05/03/24 05/06/24 Unknown (Singulair) pantoprazole 40 mg tablet,delayed 40 mg PO BID 05/03/24 05/06/24 Unknown release (Protonix) rosuvastatin 40 mg tablet (Crestor) 40 mg PO HS 05/03/24 05/06/24 Unknown Past Medical History Medical History Anxiety Asthma Chronic cough (improved with inhalers) CAD (coronary artery disease) Follows with [place] [facility] Depression GERD (gastroesophageal reflux disease) Controlled/stable per patient History of COVID-19 (11/2021) Cold symptoms- resolved History of non-ST elevation myocardial infarction (NSTEMI) 2021 Hyperlipidemia Hypertension IBS (irritable bowel syndrome) Implantable loop recorder present [employer] Follows with [facility] Cardiology Osteoarthritis PFO (patent foramen ovale) Dx 04/2023 Follows with [facility] Cardiology and [facility] (reports surgery is not recommended at this time) Sleep apnea CPAP (compliant) Vertebral artery occlusion Patient dx 11/2022 at [facility]. 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 follows with [place] neurology Exercise / Class Metabolic Activity II 4-5 Yardwork/Stairs/Walk up hill (one FS: No CP, no SOB) Past Family History Family History Father Sleep apnea Coronary heart disease Myocardial infarction Stroke syndrome Hx of CABG, Onset Age: 65 Hypertension Mother Hypothyroidism Aunt Coronary heart disease paternal Uncle Coronary heart disease paternal Other No family history of adverse response to anesthesia Denies family history of Ovarian cancer Prostate cancer Crohn's disease Breast cancer Colorectal cancer Ulcerative colitis Past Surgical History Surgical History H/O: hysterectomy TLH salpingectomy, retains ovaries (2018) History of arthroplasty of right knee Right TKA: SAB at L3/4 (1 attempt) + regional at [facility] (11/27/23) History of cardiac cath 2021- no stents History of esophagogastroduodenoscopy (EGD) History of nasal septoplasty Hx of colonoscopy Hx of hernia repair x2 (as a young child) Hx of wisdom tooth extraction S/P transesophageal echocardiogram ([facility]) (04/30/23) Past Anesthesia History No Hx of Anesthesia Complications and No Family Hx of Anesthesia Complications History of PONV No Hx of PONV and No Hx of Motion Sickness Social History Smoking Status: Never smoker Do You Dip or Chew Tobacco: No Hx Alcohol Use: Yes (Very rare) Hx Substance Use: No substance use type: does not use Review of Systems Patient denies chest pain, shortness of breath, dyspnea on exertion, fever, chills, cough, wheezing, palpitations. Physical Exam Vital Signs BP 114/70 P 71 TEMP 98.3 SP02 95%RA RESP 16 Physical Full cervical extension range of motion. Full TMJ range of motion. TMD > 3.5 finger breaths Mallampati Score I Dentition: intact, upper front left "repair" Lungs: clear throughout to auscultation Cardiac: regular rate and rhythm, no murmurs noted Spine: normal Carotid arteries: negative bruit Extremities: no LE edema Lab Results Anesthesia Preop Results Results Anesthesia Widget: WBC 4.76 K/ul (4.8-10.8) L 05/10/24 Hgb 12.6 g/dl (12.0-16.0) 05/10/24 Hct 38.6 % (37.0-47.0) 05/10/24 Plt 238 K/uL (130-400) 05/10/24 Na 140 mmol/L (136-145) 05/10/24 K 4.5 mmol/L (3.5-5.1) 05/10/24 Cl 105 mmol/L (98-107) 05/10/24 CO2 29 mmol/L (21-32) 05/10/24 BUN 12 mg/dl (6-23) 05/10/24 Creat 0.79 mg/dl (0.6-1.2) 05/10/24 Glucose Level 94 mg/dl (70-99(Fasting)) 05/10/24 PT 10.7 Seconds (9.0-12.0) 05/10/24 PTT 29 Seconds (21-31) 05/10/24 INR 1.0 (0.9-1.1) 05/10/24 Blood Type O Positive 05/10/24 Antibody Screen NEGATIVE 05/10/24 Testing Electrocardiogram Date: 11/04/23 NSR, rate 63 bpm Nonspecific T wave abnormality Chest X-Ray Date: 11/04/23 No active disease in the chest. Echocardiogram Date: 04/30/23 EF 55-60% No LV regional wall motion abnormalities No LVH Mild mitral regurgitation Very small right to left interatrial shunt visualized following agitated saline administration, suggesting small PFO No atrial thrombus Cardiac Catheterization Date: 12/05/21 Impression: 1. No significant CAD. 2. Normal left-sided filling pressure. 3. No aortic stenosis. Plan: 1. Continue risk factor modification. 2. Consider other causes of chest discomfort with elevated troponin. Addendum 12/09/21: "Upon further review, there appears to be a very small caliber OM branch with probable severe CAD. This vessel is too small for intervention. Medical therapy was recommended." Other Testing Loop recorder report Date: 02/09/24 ILR report Monitoring period 01/11/24-02/10/24 Presenting rhythm NSR. No new arrhythmia events in monitoring period. Normal battery parameters.
[~2024-06-03 08:44] MED LIST changes: +BUPIVACAINE 0.25% PF 30 ML VIAL ONE; -ROPIVACAINE 0.5% 5 MG/ML 30 ML VIAL ONE
[2024-06-03] MEDS ORDERED: MIDAZOLAM HCL 1 MG/ML 2ML VIAL ONE (09:14)
[2024-06-03] MEDS: LR 60ML/HR IV SCH (09:16)
[2024-06-03] MEDS ORDERED: LIDOCAINE 2% 2 ML VIAL/AMP(20MG/ML) INFIL ONE (09:18)
[2024-06-03] MEDS ORDERED: PROPOFOL IV EMULSION 10 MG/ML 20 ML VIAL IV ONE (09:18)
[2024-06-03] MEDS ORDERED: ONDANSETRON INJ 2 MG/ML 2 ML VIAL ONE (09:18)
[2024-06-03] MEDS: ACETAMINOPHEN 500 MG TAB PO SCH ×2 (10:03→18:10)
[2024-06-03] MEDS: LR 500ML BOLUS, THEN 15ML/HR IV SCH (10:03)
[2024-06-03] MEDS: dexAMETHasone**PF** 10 MG/ML VIAL IV SCH (10:03)
[2024-06-03] MEDS: GABAPENTIN 900 MG DOSE PO SCH (10:03)
[2024-06-03] MEDS: FAMOTIDINE 20 MG TAB PO SCH (10:04)
[2024-06-03] MEDS ORDERED: fentaNYL citrate PF 100 MCG/2 ML VIAL IV PRN (10:06)
[2024-06-03] MEDS ORDERED: ePHEDrine sulfate 50 MG/ML AMP IV PRN (10:06)
[2024-06-03] MEDS ORDERED: ATROPINE SULFATE 0.1 MG/ML 10ML SYR IV PRN (10:06)
[2024-06-03] MEDS ORDERED: ONDANSETRON INJ 2 MG/ML 2 ML VIAL IV PRN ×2 (10:06→14:14)
--- NOTE | 2024-06-03 10:06 | History & Physical Bridge Note ---
Date of Service June 03, 2024 History & Physical Bridge Note I have examined the patient, reviewed the History & Physical and in the interval since the performance of the History & Physical I have noted the following changes of clinical significance: no changes noted
[2024-06-03] MEDS: TRANEXAMIC ACID 1,000 MG **IV Pre-op IV SCH (10:58)
[2024-06-03] MEDS: ceFAZolin 2000MG 2,000 MG/15 ML SYR IV SCH (11:06)
[2024-06-03] MEDS ORDERED: DEXAMETHASONE SOD INJ 4 MG/ML VIAL ONE (11:27)
[2024-06-03] MEDS ORDERED: PHENYLEPHRINE 100MCG/ML 5ML SYR ONE (11:31)
[2024-06-03] MEDS: ROPIV 0.5% 246mg, Ketorolac 30mg, EPINEPHrine 0.5mg in NSS INFIL SCH (11:47)
[2024-06-03] MEDS: ORTHO JOINT ANESTHETIC ONE (11:48)
[2024-06-03] MEDS: TRANEXAMIC ACID 1,000 MG **IV Intra-op IV SCH (12:00)
--- NOTE | 2024-06-03 12:02 | Operative Report ---
PG Post Operative Report Pre & Post Diagnosis Operation Date: 06/03/24 11:00 Pre-Op Diagnosis: Left Knee Osteoarthritis Post-Op Diagnosis: Left Knee Osteoarthritis I identified the patient and participated in the time-out.: Yes Procedure Operation Date: 06/03/24 11:00 Actual Procedures p Left Total Knee Arthroplasty(Left) - Matt Blank DO Surgeon Matt Blank DO Information Clerk Filemon Santoyo PA-C Estimated Blood Loss 50 Findings Consistent with Post-Op Diagnosis Specimens Left femoral and tibial bone Description of Procedure Implants used: I used a [employer] total knee arthroplasty system with a size 8 CR standard femur, E tibia, 31 oval patella, and a size 12 medial congruent polyethylene bearing. All components were cemented in place with Biomet cement. Ana María arrived [facility] for the above procedure. She was seen in the preoperative holding area and the operative extremity was identified and signed. She was given a preoperative antibiotic, TXA, a spinal anesthetic and an adductor nerve block. She was taken back to the operating room and laid on the table in supine position. She was given basic sedation. The operative knee was then prepped and draped in sterile fashion. A timeout was done, and the patient and the operative extremity was properly identified. A midline incision was made directly over the patella. Dissection was taken down to the extensor mechanism. A medial parapatellar arthrotomy was used. The medial retinaculum was released and the fat pad was mostly excised. The knee was flexed and the ACL, PCL, and meniscus were removed. A drill was sent down the center of the femoral canal followed by an intramedullary chris. Off that chris a distal femoral cutting block was placed. 9 mm was resected off the distal femur at 5 of valgus. A posterior referencing AP sizing guide was then placed on the distal femur. The femur measured to be a size 8. 2 drill holes were placed in 3 of external rotation. A 4-in-1 cutting block was then impacted into place. Anterior, posterior, and chamfer cuts were then made. The proximal tibia was then exposed. An external tibial alignment guide was placed. A tibial cut guide was then anchored in place and the proximal tibia was then resected. The posterior aspect of the knee was then opened up and any additional meniscus fragments and osteophytes were removed. The tibia measured to be a size E. The tibial plate was then placed in the appropriate rotation and the tibia was drilled and punched. Trial components were then placed. I used a size 12 medial congruent polyethylene insert. The knee was brought through a full range of motion and felt to be stable. The peg holes for the femoral component were then drilled. The patella was then everted and 9 mm was resected off the posterior aspect of the patella. The patella measured to be a size 31 oval. 3 peg holes were then drilled. A trial patella was placed. The knee was once again brought through a full range of motion and felt to be stable. Trial components were then removed. The surrounding soft tissues were injected with 100 cc of an orthopedic pain control cocktail. All components were then cemented into place with Biomet cement. The final polyethylene insert was then snapped into place. Once cement was dry the tourniquet was deflated. Hemostasis was obtained. A dilute betadyne lavage was then done for 3 minutes. The joint was then irrigated with normal saline solution. The medial parapatellar arthrotomy was then closed with #1 Vicryl suture. The skin was closed with 2-0 Vicryl, 3-0V lock suture, and mikey. A soft compressive dressing was placed. She was then transferred to a hospital bed and taken to the postanesthesia care unit in stable condition. She tolerated the procedure well. Filemon Santoyo PA-C, was present for the entire procedure. He was critical for patient positioning, prepping, draping, retraction exposure, wound closure and application of sterile dressing. I attest to the content of the Intraoperative Record and any orders documented therein. Any exceptions are noted below.
[2024-06-03] MEDS ORDERED: ePHEDrine sulfate 50 MG/5 ML SYR ONE (12:09)
--- NOTE | 2024-06-03 13:08 | XRay Report ---
XR knee LT 1 or 2V routine CLINICAL HISTORY: Surgical Post Op COMPARISON: 06/26/2021 FINDINGS: Left knee prosthesis shows no hardware complication. There is expected soft tissue gas. Sk in mikey are present. IMPRESSION: Unremarkable postoperative exam ACT 112: Negative or not required by law. Electronically signed by: Fabio Chilel M.D. 06/03/2024 1:06 PM
[2024-06-03] MEDS ORDERED: HYDROmorphone INJ 0.5 MG/0.5 ML SYR IV PRN (14:14)
[2024-06-03] MEDS ORDERED: bisacodyL 10 MG SUPP PR PRN (14:14)
[2024-06-03] MEDS ORDERED: NALOXONE HCL 0.4 MG/1 ML VIAL/CARP IV PRN (14:14)
[2024-06-03] MEDS ORDERED: MAGNESIUM HYDROXIDE SUSP 30 ML UDC PO PRN (14:14)
[2024-06-03] MEDS ORDERED: METOCLOPRAMIDE HCL INJ 5 MG/ML 2 ML VIAL IV PRN (14:14)
--- NOTE | 2024-06-03 14:29 | Anesthesiology Progress Note ---
Date of Service June 03, 2024 Anesthesia Post Procedure Vital Signs Vital Signs: Temp Pulse Pulse Resp BP Pulse Ox O2 Del Method 06/03/24 14:21 102/70 06/03/24 14:18 36.9 C 77 20 96/59 L 93 Room Air 06/03/24 13:55 68 16 108/66 97 Nasal Cannula 06/03/24 13:40 70 13 105/61 99 Nasal Cannula 06/03/24 13:25 69 14 110/66 100 Nasal Cannula 06/03/24 13:10 66 13 116/77 100 Nasal Cannula 06/03/24 12:55 36.8 C 71 16 105/52 L 97 Nasal Cannula 06/03/24 12:45 69 14 102/58 L 98 Nasal Cannula 06/03/24 12:35 73 13 111/63 100 Oxymask 06/03/24 12:27 36.6 C 84 13 108/57 L 100 Oxymask 06/03/24 09:20 36.7 C 80 20 120/71 98 Room Air O2 Flow Rate 06/03/24 14:21 06/03/24 14:18 06/03/24 13:55 2 06/03/24 13:40 2 06/03/24 13:25 2 06/03/24 13:10 2 06/03/24 12:55 2 06/03/24 12:45 2 06/03/24 12:35 6 06/03/24 12:27 8 06/03/24 09:20 Transfer of Care Handoff Completed per policy Notes Mental Status: alert / awake / arousable and participated in evaluation Patient Amnestic to Procedure: Yes Nausea / Vomiting: adequately controlled Pain: adequately controlled Airway Patency, RR, SpO2: stable & adequate BP & HR: stable & adequate Hydration State: stable & adequate Neuraxial Anesthesia: was administered and sensory block is resolving Anesthetic Complications: no major complications apparent and Pt Satisfied with anesthetic care
[2024-06-03] MEDS: KETOROLAC TROMETHAMINE 15 MG/ML VIAL IV SCH (15:07)
[2024-06-03] MEDS: ceFAZolin 1000MG 1,000 MG/7.5 ML SYR IV SCH (18:11)
[2024-06-03] MEDS: PANTOprazole 40 MG TAB PO SCH (20:44)
[2024-06-03] MEDS: ESCITALOPRAM OXALATE 20 MG TAB PO SCH (20:44)
[2024-06-03] MEDS: SENNA 8.6 MG TAB PO SCH (20:45)
[2024-06-03] MEDS: ROSUVASTATIN CALCIUM 20 MG TAB PO SCH (20:45)
[2024-06-03] MEDS: DOCUSATE SODIUM 100 MG CAP PO SCH (20:45)
[2024-06-04] MEDS: oxyCODONE HCL IR 5 MG TAB (IMMEDIATE RELEASE) PO PRN (03:27)
[2024-06-04] MEDS ORDERED: LR 500ML BOLUS, THEN 15ML/HR IV SCH (06:00)
[2024-06-04 07:23] VITALS: BP 105/70; RESP 18; TEMP 97.9; O2SAT 93
--- NOTE | 2024-06-04 07:47 | Orthopedic Progress Note ---
Date of Service June 04, 2024 Assessment & Plan (1) Status post left knee replacement: Overall she is doing very well. She is not having much pain in the left knee. She will be seen by physical therapy today for ambulation and range of motion exercises. She is on aspirin and Plavix for DVT prophylaxis. She can be discharged to home later today. She will follow-up with orthopedics in 2 weeks. Abril Gotti was seen and examined at bedside this morning. Overall she is doing very well. She is not having much pain in the left knee. She has been up and ambulating to the bathroom. She has no complaints.. Review of Systems All systems reviewed & are unremarkable except as noted in HPI & below. Physical Exam On physical exam of the left knee, the dressing is clean and dry. Her leg is out full extension. She has active dorsiflexion plantarflexion of her left ankle.. Results & Data Results & Data Laboratory Results . Diagnostic Findings Postoperative x-rays of the left knee show the prosthesis to be in anatomic alignment without any evidence of fracture, dislocation, or loosening.. PG Care Time/CCT Total # of Minutes Spent Total Time Spent with Patient: Total time spent is greater than 50% in coordination of care (as documented) at patient's floor/unit and/or counseling patient: Coding Level of Care Code 81113 Post Operative Follow-Up Diagnoses Status post left knee replacement Z96.652
--- NOTE | 2024-06-04 07:48 | Discharge Summary ---
Date of Service June 04, 2024 Principal Diagnosis Same as "Discharge Diagnosis" noted below under Discharge Instructions. Discharge Exam On physical exam of the left knee, the dressing is clean and dry. Her leg is out full extension. She has active dorsiflexion plantarflexion of her left ankle.. Discharge Data Procedures Performed Operation Date: 06/03/24 11:00 Actual Procedures p Left Total Knee Arthroplasty(Left) - Matt Blank DO Ordered Studies 06/03/24 05:00 US - OR guided needle placemen Routine Hospital Course (1) Status post left knee replacement: On June 04, 2024 Ana María arrived at [facility] and underwent a left knee replacement without complication. She had a spinal anesthetic. Postoperatively she was started on aspirin for DVT prophylaxis and transferred to the general orthopedic floors. Her hospital course was uneventful. On postop day #1, her vital signs were stable and her pain was well-controlled. She was able to participate well with physical therapy doing ambulation and range of motion exercises. She was then discharged to home. She will follow-up with orthopedics in 2 weeks. PG Care Time/CCT Total # of Minutes Spent Total Time Spent with Patient: Total time spent is greater than 50% in coordination of care (as documented) at patient's floor/unit and/or counseling patient: Discharge Plan Discharge Items Patient Disposition: Home - Self-Care Reason For Visit: Left Knee Arthritis Discharge Diagnosis: Left knee replacement Activity: Per Instructions section Non-emergency contact: Surgeon Call non-emergency contact if: your wound has increased redness and your wound has increased drainage Follow-up/Referrals: Katherine Chapman MD [Primary Care Provider] - Diet: Regular Addtl Attending Provider Instructions: Activity and Therapy Recommendations: * If you are using [facility] then therapy will be provided at your home until they feel you have accomplished all of your goals. * If you are using [facility] then Physical Therapy will be provided until they feel you are ready to start Outpatient Physical Therapy. * If you are not using home therapy then Outpatient Physical Therapy should start about 3-5 days from your day of surgery. Therapy will last about 6-10 weeks * It is important not to put a pillow under your knee when you are relaxing or sleeping. It is just as important to make sure you are getting your knee perfectly straight as it is to regain your knee bend. * You were shown a series of exercises in the hospital. Do these exercises three times each day including the exercises you were shown in physical therapy. * Get up and walk several times each day. For the first four weeks, try not to stand or walk for more than one hour at a time. If you do stand or walk for more than one hour, you will not hurt anything, but your leg will likely swell. * As you feel comfortable, you may change from the walker or crutches to a cane and then to independent walking. Medications: * Narcotic You will likely be sent home from the hospital with a prescription for the narcotic pain medication that worked best throughout your stay. * Cefadroxil -take the antibiotic twice a day for 10 days to help prevent infection. * Continue taking your Plavix as directed. Take aspirin 81 mg once a day for 6 weeks along with the Plavix. * Other medications may be prescribed for specific circumstances. If you have any questions, please call the office at . * Resume previous home medications unless otherwise instructed TEDs/Elastic Stockings: The white elastic stockings help limit swelling and prevent blood clots from f orming in your legs.~ The more you wear them, the more they work. Wear them for six weeks. Dressing Care: The dressing can be changed after physical therapy on postop day #1. Daily dry dressing changes for a few days, especially if the incision is still draining some. If the incision is not draining then you may leave the mikey open to air. If there is a little bit of drainage or if the mikey are getting stuck on your clothing then cover the incision with a dry dressing. The mikey will be removed at your 2 week follow-up appointment. Showering: You may shower 5 days from the day of surgery as long as the incision is no longer draining. You may shower with the mikey exposed. Let soapy water run over the mikey and pat them dry. Do not scrub or soak the incision. Diet: You may resume your previous diet. Things To Watch For: * Drainage from the incision site that occurs more than one week after your surgery. * Increased redness at the incision site. * Fever above 102 degrees Fahrenheit. * Unusual chest pain or shortness of breath. * Call [facility] at with any of the above problems Follow-Up Visit: Follow-up with Dr. Blank's office 2-3 weeks after your day of surgery. We will remove your mikey and answer any questions. If you have any additional questions or concerns, Dr Blank is usually in the office at the same time and will be available An appointment was probably scheduled when you signed-up for surgery in the office. If you have any questions call Office Instructions: More detailed instructions as well as Frequently Asked Questions were provided in a folder by our office when you signed-up for surgery. Please review these instructions when you get home. If you have any further questions or concerns, please feel free to call the office at [phone] Pending Studies at Discharge: No Stand-Alone Forms: My [facility] Medications and DC Order Prescriptions: New cefadroxil 500 mg capsule 500 mg PO BID 10 Days Qty: 20 0RF oxycodone 5 mg tablet 5 mg PO Q6H PRN (Reason: pain) Qty: 30 0RF aspirin [Adult Aspirin Regimen] 81 mg tablet,delayed release (DR/EC) 81 mg PO DAILY 42 Days Qty: 42 0RF Continued metoprolol succinate 50 mg tablet extended release 24 hr 50 mg PO QAM Qty: 90 3RF calcium carbonate-vitamin D3 600 mg(1,500mg) -200 unit tablet 1 tab PO QAM multivitamin [Daily Multi-Vitamin] tablet 1 tab PO QAM cholecalciferol (vitamin D3) 5,000 unit capsule 5,000 units PO QAM fluticasone propionate 50 mcg/actuation spray,suspension 2 sprays intranasal QAM PRN (Reason: Allergies) (DME) CPAP Machine Misc See Rx Instructions .MEDSUPPLY Qty: 1 0RF Rx Instructions: CPAP 9 cm water pressure with heated humidification, tubing, and supplies. KADEN: 99+ years. albuterol sulfate 2.5 mg /3 mL (0.083 %) solution for nebulization 2.5 mg inhalation Q4H PRN (Reason: wheezing) Qty: 90 3RF albuterol sulfate 90 mcg/actuation HFA aerosol inhaler 2 puff inhalation Q4H PRN (Reason: Shortness Of Breath) Qty: 18 3RF (DME) nebulizer accessories Misc See Rx Instructions .ROUTE .MEDSUPPLY Qty: 1 0RF Rx Instructions: As directed estradiol 0.01 % (0.1 mg/gram) cream 0.5 g vaginal 2XWK Qty: 42.5 2RF Rx Instructions: Usually sundays and fexofenadine [Paz Allergy] 180 mg tablet 180 mg PO QAM escitalopram oxalate [Lexapro] 20 mg tablet 20 mg PO QPM Qty: 90 3RF nitroglycerin [Nitrostat] 0.4 mg Tablet, Sublingual 0.4 mg sublingual UD PRN (Reason: chest pain) Qty: 1 0RF Rx Instructions: and can repeat q5 min x 3 doses, then call 911 amoxicillin 500 mg tablet 2,000 mg PO ONCE PRN (Reason: Dental Procedures) Rx Instructions: 4 tabs 1 hour prior to procedure pantoprazole [Protonix] 40 mg tablet,delayed release (DR/EC) 40 mg PO BID montelukast [Singulair] 10 mg tablet 10 mg PO HS rosuvastatin [Crestor] 40 mg tablet 40 mg PO HS fluticasone propion-salmeterol 250-50 mcg/dose blister with device 1 inh inhalation BID Rx Instructions: USE 1 INHALATION ORALLY TWICE DAILY clopidogrel [Plavix] 75 mg tablet 75 mg PO QAM Patient Comments: "I think I will be holding it 7 days again for this second procedure 06/03/24 - will check with [facility] 05/06/24" Rx Instructions: TAKE 1 TABLET DAILY Discharge Orders: Discharge Order (Routine); Ordered 06/04/24 Ordered By: Matt Blank Admission Data Admit Date/Time: 06/03/24 12:29 Attending Provider: Matt Blank Admit Provider: Matt Blank Primary Care Provider: Katherine Chapman
[2024-06-04] MEDS: METOPROLOL SUCC 50MG EXT REL TAB PO SCH (07:55)
[2024-06-04] MEDS: dexAMETHasone 4 MG TAB PO SCH (07:56)
[2024-06-04] MEDS: CLOPIDOGREL BISULFATE 75 MG TAB PO SCH (07:56)
[2024-06-04] MEDS: MULTIVITAMIN TAB PO SCH (07:56)
[2024-06-04] MEDS: ASPIRIN 81 MG ECTAB PO SCH (09:07)
[2024-06-04 09:54] VITALS: PULSE 68
== END 2024-06-04 11:01 | disposition home health service (06) ==
LOC: 3E 08:44 → ASU 08:44